=== PATIENT | male | born 1970 | race Two or more races ===

== ENCOUNTER 2024-10-17 11:03 | Inpatient (IN) | payer BC, OTHER ==
[~2024-10-17] VITALS: Ht 180.3 cm; Wt 129.8 kg
[2024-10-17] VITALS (14 sets, daily range): BP systolic 76–117; BP diastolic 46–83; PULSE 82–126; RESP 12–27; TEMP 97.4–97.7; O2SAT 90–96
[~2024-10-17 11:03] MED LIST: AMLO1TAB23 PO; CARV6.2551 PO; FLUT1AER7 IN; MYCO250C PO; SITA100T7 PO
--- NOTE | 2024-10-17 11:41 | DVH ---
CHEST RADIOGRAPH Indication: CHEST PAIN Technique: Single frontal view of the chest was obtained COMPARISON: None FINDINGS: Lines and Tubes: None Lungs: Clear Pleura: No effusion. No pneumothorax. Cardiomediastinal contours: Unremarkable Bones: Unremarkable IMPRESSION: No acute disease.
--- NOTE | 2024-10-17 11:55 | ED.PDOC ---
HPI Comments 54-year-old male patient with past medical history of COPD, CHF, diabetes mellitus, hypertension and past surgical history of colectomy for colon cancer six weeks ago presented with complaints of sudden-onset shortness of breath and chest pain. Patient's symptoms started 45 minutes ago before coming to the ED. He had sudden onset chest pain that he describes as substernal, pressure-like, not increased on inspiration, nonradiating to jaws, arms, epigastrium. He also mentioned associated shortness of breath, which started at the same time. Patient mentioned that he has been having right-sided calf pain for last seven days. He denied any use of recent blood thinners, does not use oxygen at home. Past medical history COPD, CHF, diabetes mellitus, hypertension, colon cancer past surgical history colectomy for colon cancer six weeks ago Medication history Glipizide, mycophenolate, metformin, Entresto, amlodipine, Januvia, carvedilol, montelukast Social history Allergic history Allergic to prednisone Per EMS patient was desaturating on 82-83% on initial evaluation, started the patient on oxygen. In the ED patient initial vitals: patient is tachycardic at rate of 125, respiratory rate fluctuating from 15-28, 93% on 6 L of oxygen, normal temperature and blood pressure 106/41. Review of system As advised in HPI Examination General Appearance: Alert, Oriented X3, Cooperative, No acute distress HEENT: EOMI Respiratory: Clear to auscultation, Normal air movement Cardiovascular: Regular rate, Normal S1, Normal S2 Abdominal: Normal bowel sounds, post surgical scar lola present Extremities: No leg tenderness Neuro: Normal speech and tone Attestation note: Dr. Murray: I was the supervising attending for this ED encounter. Please see the resident's notes. I was available for questions and consultations. I have personally seen and evaluated this patient. Differential diagnosis: DDx include ACS, unstable angina, anxiety, PE, pneumothroax, neoplasm, cardiac ischemia, COPD, asthma, CHF, pleural effusion, tobacco abuse, pneumonia, hypoxia, hypercapnia, anemia., infection/sepsis., pulmonary edema. Asthma, Cardiac tamponade, infection. MDM: Patient presented with the above HPI.--chest pain shortness of breath tachycardic----workup was initiated. patient was found with the above mentioned diagnosis. Patient was given: Lovenox, then heparin drip, nitroglycerin, aspirin, Zosyn, Patient ED course and VS have been stabilized. Patient has been reassessed in the ED and remained in a stable condition. Pertinent incidental findings were discussed with the patient and/or family. Patient/family voices understanding and is agreeable with plan. Patient has been observed in the ED adequate length of time to insure improvement/stability. Interventional Radiology was consulted. Patient was taken to laborer/grade check for emergent thrombectomy for massive PE. patient was admitted to the medicine team for further evaluation and treatment of their presentation. All the reports of any imaging studies that were ordered by myself were reviewed by myself. Chief Complaint: Chest Pain Time Seen by MD: 11:16 Primary Care Provider: YONATHAN Reviewed Notes: Nurses Notes, Allergies Allergies: Coded Allergies: Prednisone (Verified Allergy, Unknown, 10/18/24) Home Meds Reported Medications Amlodipine Besylate (Amlodipine Besylate) 10 Mg Tab, 1 TAB PO QAM for 90 Days, # 90 10/21/24 Fluticasone-Salmeterol (Wixela Inhub 500-50 Mcg/Dose) 1 Aer Aer, 1 PUFF IN BID for 30 Days, #60 10/21/24 Sitagliptin Phosphate (Januvia) 100 Mg Tab, 1 TAB PO DAILY for 90 Days, #90 10/21/24 Carvedilol (Carvedilol) 6.25 Mg Tab, 1 TAB PO BID for 90 Days, #180 10/21/24 Mycophenolate Mofetil (Cellcept) 250 Mg Cap, 250 MG PO BID, CAP 10/20/24 Sacubitril-Valsartan (Entresto 97-103 mg) 1 Tab Tab, 1 TAB PO BID, TAB 10/20/24 Montelukast Sodium (MONTELUKAST SODIUM) 10 Mg Tab, 1 TAB PO DAILY, #30 TAB 5 Refills 10/20/24 Metformin Hydrochloride (Metformin Hcl) 500 Mg Tab, 500 MG PO BID for 30 Days, MG 10/20/24 Glipizide (Glipizide) 10 Mg Tab, 20 MG PO BIDAC for 30 Days, MG 10/20/24 Semaglutide (Rybelsus) 7 Mg Tab, 7 MG PO DAILY, TAB 10/20/24 Discontinued Reported Medications Carvedilol (COREG) 3.125 Mg Tab, 6.25 MG PO BID, TAB 10/20/24 Information Source: Patient Mode of Arrival: EMS Physical Exam General Appearance: Other (Mentioned in the note) HEENT: Other (Mentioned in the note) Neck: Other (Mentioned in the note) Respiratory: Other (Mentioned in the note) Cardiovascular: Other (Mentioned in the note) Breast Exam: Deferred Gastrointestinal: Other (Mentioned in the note) Genitalia: Deferred Pelvic: Deferred Rectal: Deferred Extremities: Other (Mentioned in the note) Neurologic: Other (Mentioned in the note) Cerebellar Function: Other (Mentioned in the note) Reflexes: Other (Mentioned in the note) Skin: Other (Mentioned in the note) Lymphatic: Other (Mentioned in the note) EKG EKG : Comments Sinus tachycardia with T-wave inversion in V3, V4, V5 Was a procedure done? Was a procedure done?: No CP Differential Dx Differential Diagnosis: Heart Failure, SD, Pulmonary Embolus, Other Differential Diagnosis: CHF Differential Diagnosis: Angina, Aortic dissection, Chest Wall Pain, Gastritis, Myocardial Infarction, Pericarditis, Pneumonia, Pulmonary Embolus Comment DDx include ACS, unstable angina, anxiety, PE, pneumothroax, neoplasm, cardiac ischemia, COPD, asthma, CHF, pleural effusion, tobacco abuse, pneumonia, hypoxia, hypercapnia, anemia., infection/sepsis., pulmonary edema. Asthma, Cardiac tamponade, infection. X-Ray, Labs, Meds, VS Vital Signs Date Time Temp Pulse Resp B/P (MAP) Pulse Ox O2 Delivery O2 Flow Rate FiO2 10/17/24 14:04 125 10/17/24 13:01 123 24 107/73 (84) 92 10/17/24 12:04 131 10/17/24 12:00 125 10/17/24 12:00 90/63 10/17/24 11:33 98.2 129 16 104/61 (75) 87 98.2 10/17/24 11:33 126 24 92 Nasal Cannula* 6 44 10/17/24 11:06 97.7 125 26 84/58 (67) 96 10/17/24 11:03 125 Lab Test 10/17/24 14:25 10/17/24 14:03 10/17/24 12:52 10/17/24 12:40 Range/Units Prothrombin Time 12.7 H 9.3-11.8 sec Prothrombin Time INR 1.22 H 0.9-1.15 Activated Partial Thromboplast Time 33.9 24.5-34.5 SEC Lactic Acid Level 2.8 *H 3.4 *H 0.4-2.0 mmol/L Troponin I High Sensitivity 276 *H 235 *H </=54 ng/L Urine Color Yellow Yellow Urine Clarity Clear Clear Urine pH 6.0 5.0-9.0 Urine Specific [place] > 1.035 H 1.001-1.035 Urine Protein 3+ H Negative Urine Ketones Negative Negative Urine Blood 1+ H Negative /uL Urine Nitrite Negative Negative Urine Bilirubin Negative Negative Urine Urobilinogen Normal Negative mg/dL Urine Leukocyte Esterase Negative Negative /uL Urine RBC 5 0 - 3 /hpf Urine WBC 5 0 - 3 /hpf Urine Squamous Epithelial Cells Few <5 /hpf Urine Bacteria Few H None Seen /hpf Urine Hyaline Casts Few 0 - 2 /lpf Urine Mucus Few None Seen Urine Glucose Trace Normal mg/dL Test 10/17/24 11:30 Range/Units White Blood Count 25.3 H 4.4-10.8 10^3/uL Red Blood Count 5.72 4.5-5.90 10^6/uL Hemoglobin 17.6 H 13.5-17.5 g/dL Hematocrit 53.8 H 41.0-53.0 % Mean Corpuscular Volume 94.1 80.0-100.0 fL Mean Corpuscular Hemoglobin 30.8 28.0-32.0 pg Mean Corpuscular Hemoglobin Concent 32.8 32.0-36.0 g/dL Red Cell Distribution Width 14.5 H 11.8-14.3 % Platelet Count 116 L 140-450 10^3/uL Mean Platelet Volume 10.4 6.9-10.8 fL Neutrophils (%) (Auto) 37.0-80.0 % Lymphocytes (%) (Auto) 10.0-50.0 % Monocytes (%) (Auto) 0.0-12.0 % Basophils (%) (Auto) 0.0-2.0 % Neutrophils # (Auto) 1.6-8.6 10 ^3/uL Lymphocytes # (Auto) 0.4-5.4 10 ^3/uL Monocytes # (Auto) 0-1.3 10 ^3/uL Differential Total Cells Counted 100.0 100 Neutrophils % (Manual) 85 H 37.0-80.0 Band Neutrophils % (Manual) 0 Lymphocytes % (Manual) 7 L 10.0-50.0 Monocytes % (Manual) 8 0-12 Eosinophils % (Manual) 0 0-7 Basophils % (Manual) 0 0.0-2.0 Metamyelocytes % (manual) 0 Myelocytes % (Manual) 0 Promyelocytes % (Manual) 0 Blast Cells % (Manual) 0 Reactive Lymphocytes 0 Platelet Estimate Decreased Red Blood Cell Morphology Normal Prothrombin Time 12.9 H 9.3-11.8 sec Prothrombin Time INR 1.24 H 0.9-1.15 Activated Partial Thromboplast Time 32.5 24.5-34.5 SEC D-Dimer, Quantitative 23.87 H 0.0-0.49 mg/L FEU Sodium Level 143 136-145 mmol/L Potassium Level 4.4 3.5-5.1 mmol/L Chloride Level 109 H 98-107 mmol/L Carbon Dioxide Level 18 L 20-31 mmol/L Anion Gap 16 H 5-15 Blood Urea Nitrogen 29 H 9-23 mg/dL Creatinine 1.48 H 0.700-1.30 mg/dL Glomerular Filtration Rate Calc 55 >90 mL/min BUN/Creatinine Ratio 19.6 10.0-20.0 Serum Glucose 191 H 74-106 mg/dL Calcium Level 10.0 8.7-10.4 mg/dL Magnesium Level 2.1 1.6-2.6 mg/dL Total Bilirubin 1.3 H 0.2-1.0 mg/dL Aspartate Amino Transferase (AST) 35 13-40 U/L Alanine Aminotransferase (ALT) 31 7-40 U/L Alkaline Phosphatase 76 46-116 U/L Troponin I High Sensitivity 199 *H </=54 ng/L C-Reactive Protein High Sensitivity 1.22 H <1.0 mg/dL B-Type Natriuretic Peptide 208.89 0-100 pg/mL Total Protein 7.3 5.7-8.2 g/dL Albumin 4.6 3.2-4.8 g/dL Thyroid Stimulating Hormone (TSH) 2.39 0.55-4.78 uIU/mL Microbiology Date/Time Source Procedure Growth Status 10/17/24 12:52 Blood Blood Culture - Preliminary NO GROWTH AFTER 72 HOURS OF INCUBATION. Resulted 10/17/24 12:52 Blood Blood Culture - Preliminary NO GROWTH AFTER 72 HOURS OF INCUBATION. Resulted [place] [id number] Ph: [phone] DIAGNOSTIC IMAGING Diagnostic Imaging Report : [id number] Signed PATIENT: JOHNNY JOINER ACCT: [id number] UNIT: [id number] : 1970 LOC: ER ROOM / BED: / AGE / SEX: 54 / M ADM STATUS: REG ER SERVICE 1115 ORDERING PHYSICIAN: SPRING HARTMAN MD PROCEDURE(s): CXRP - CHEST PORTABLE REASON: CHEST PAIN ORDER NUMBER(s): [id number], ACCESSION NUMBER(s): [id number] CHEST RADIOGRAPH Indication: CHEST PAIN Technique: Single frontal view of the chest was obtained COMPARISON: None FINDINGS: Lines and Tubes: None Lungs: Clear Pleura: No effusion. No pneumothorax. Cardiomediastinal contours: Unremarkable Bones: Unremarkable IMPRESSION: No acute disease. ATED BY: DEWAYNE JULIAN MD DICTATED DATE/TIME: 10/17/24 1139 SIGNED BY: DEWAYNE JULIAN MD SIGNED DATE/TIME: 10/17/24 1139 CC: [place] [id number] Ph: [phone] DIAGNOSTIC IMAGING Diagnostic Imaging Report : [id number] Signed PATIENT: JOHNNY JOINER ACCT: [id number] UNIT: [id number] : 1970 LOC: ER ROOM / BED: / AGE / SEX: 54 / M ADM STATUS: REG ER SERVICE 1145 ORDERING PHYSICIAN: ALYSON MURRAY DO PROCEDURE(s): BLDVT - BiLat Lower DVT REASON: SOB ORDER NUMBER(s): [id number], ACCESSION NUMBER(s): [id number] Bilateral lower extremity venous duplex Clinical History: SOB Comparison: None Technique: Duplex Doppler evaluation of the deep venous systems of both lower extremities from the common femoral veins to the popliteal veins including color Doppler and spectral/pulsed waveform analysis was performed. Findings: RIGHT SIDE: The common femoral vein demonstrates appropriate compressibility and waveform variability. There is compressibility/patency of the great saphenous vein at the proximal thigh. Thrombus in the mid right superficial femoral vein. There is normal compressibility at the tibioperoneal trunk. LEFT SIDE: The common femoral vein demonstrates appropriate compressibility and waveform variability. There is compressibility/patency of the great saphenous vein at the proximal thigh. The femoral vein demonstrates appropriate compressibility and waveform variability. The deep femoral vein demonstrates appropriate compressibility and waveform variability. The popliteal vein demonstrates appropriate compressibility and waveform variability. There is normal compressibility at the tibioperoneal trunk. Impression: Right Lower extremity DVT. No left DVT. ATED BY: CHRISTIE ZARCO MD DICTATED DATE/TIME: 10/17/248 SIGNED BY: CHRISTIE ZARCO MD SIGNED DATE/TIME: 10/17/248 CC: [place] [id number] Ph: [phone] DIAGNOSTIC IMAGING Diagnostic Imaging Report : [id number] Signed PATIENT: JOHNNY JOINER CACCT: [id number] UNIT: [id number] : 1970 LOC: ER ROOM / BED: / AGE / SEX: 54 / M ADM STATUS: REG ER SERVICE 1213 ORDERING PHYSICIAN: MORIAH HINDS RESIDENT PROCEDURE(s): CTACH - CT ANGIO CHEST CONTRAST REASON: rule out PE ORDER NUMBER(s): [id number], ACCESSION NUMBER(s): [id number] CT CT ANGIO CHEST CONTRAST INDICATION: rule out PE EXAM DATE: 10/17/2024 01:16 PM COMPARISON: None RADIATION DOSE: CTDIvol: 27 mGy, DLP: 1127 mGy*cm PROCEDURE: Helical CT angiographic images were obtained of the chest with intravenous contrast. Sagittal and coronal reconstructions as well as MIPS are provided. Maximum intensity projections performed (MIPs) were performed for CTA. ADDITIONAL IMAGES / REFORMATS: None All CT scans at this medical facility are performed using dose modulation techniques as appropriate to a performed exam including the following: Automated exposure control was utilized; adjustment of the MA and/or KV according to patient size; and use of iterative reconstruction technique. FINDINGS: Bones: Scattered degenerative changes are noted in the visualized osseous stru ctures. Visualized Abdomen: 5.3 cm right adrenal myelolipoma. Multiple hepatic cystic lesions measures up to 2.2 cm. Nodular liver contour. Chest Wall: 2.7 x 2.7 x 3.5 cm cystic lesion in the posterior chest wall subcutaneous fat. Soft tissues: Normal. Mediastinum: Normal. Heart: Right ventricular enlargement is seen. Vessels: Large filling defects in the visualized pulmonary arteries including the segmental and subsegmental pulmonary arteries. Lymph Nodes: Normal. Pleura: Normal. Airways: Normal. Lung: Normal. Other: IMPRESSION: Saddle pulmonary embolism in the visualized bilateral pulmonary arteries including the segmental and subsegmental pulmonary arteries. 2.7 x 2.7 x 3.5 cm cystic lesion in the posterior chest wall subcutaneous fat, u ncertain etiology but metastatic disease is a consideration. 5.3 cm right adrenal myelolipoma. Multiple hepatic cystic lesions measures up to 2.2 cm are incompletely evaluated. Nodular liver contour could be cirrhosis. Critical Result: Pulmonary Emboli Findings discussed with Dr. Murray at 10/17/2024 02:32 PM and acknowledged receipt and understanding of the findings. ATED BY: GONZALEZ SHERWOOD MD DICTATED DATE/TIME: 10/17/241432 SIGNED BY: GONZALEZ SHERWOOD MD SIGNED DATE/TIME: 10/17/24 143 CC: X-Ray, Labs, Meds, VS Comment [place] [address] Ph: [phone] DIAGNOSTIC IMAGING Diagnostic Imaging Report : [id number] Signed PATIENT: JOHNNY JOINER ACCT: [id number] UNIT: [id number] : 1970 LOC: ER ROOM / BED: / AGE / SEX: 54 / M ADM STATUS: REG ER SERVICE 1145 ORDERING PHYSICIAN: ALYSON MURRAY DO PROCEDURE(s): BLDVT - BiLat Lower DVT REASON: SOB ORDER NUMBER(s): [id number], ACCESSION NUMBER(s): [id number] Bilateral lower extremity venous duplex Clinical History: SOB Comparison: None Technique: Duplex Doppler evaluation of the deep venous systems of both lower extremities from the common femoral veins to the popliteal veins including color Doppler and spectral/pulsed waveform analysis was performed. Findings: RIGHT SIDE: The common femoral vein demonstrates appropriate compressibility and waveform variability. There is compressibility/patency of the great saphenous vein at the proximal thigh. Thrombus in the mid right superficial femoral vein. There is normal compressibility at the tibioperoneal trunk. LEFT SIDE: The common femoral vein demonstrates appropriate compressibility and waveform variability. There is compressibility/patency of the great saphenous vein at the proximal thigh. The femoral vein demonstrates appropriate compressibility and waveform variab ility. The deep femoral vein demonstrates appropriate compressibility and waveform variability. The popliteal vein demonstrates appropriate compressibility and waveform variability. There is normal compressibility at the tibioperoneal trunk. Impression: Right Lower extremity DVT. No left DVT. ATED BY: CHRISTIE ZARCO MD DICTATED DATE/TIME: 10/17/24 1238 SIGNED BY: CHRISTIE ZARCO MD SIGNED DATE/TIME: 10/17/24 1238 CC: [place] [id number] Ph: [phone] DIAGNOSTIC IMAGING Diagnostic Imaging Report : [id number] Signed PATIENT: JOHNNY JOINER ACCT: [id number] UNIT: [id number] : 1970 LOC: ER ROOM / BED: / AGE / SEX: 54 / M ADM STATUS: REG ER SERVICE 1213 ORDERING PHYSICIAN: MORIAH HINDS RESIDENT PROCEDURE(s): CTACH - CT ANGIO CHEST CONTRAST REASON: rule out PE ORDER NUMBER(s): [id number], ACCESSION NUMBER(s): [id number] CT CT ANGIO CHEST CONTRAST INDICATION: rule out PE EXAM DATE: 10/17/2024 01:16 PM COMPARISON: None RADIATION DOSE: CTDIvol: 27 mGy, DLP: 1127 mGy*cm PROCEDURE: Helical CT angiographic images were obtained of the chest with intravenous contrast. Sagittal and coronal reconstructions as well as MIPS are provided. Maximum intensity projections performed (MIPs) were performed for CTA. ADDITIONAL IMAGES / REFORMATS: None All CT scans at this medical facility are performed using dose modulation techniques as appropriate to a performed exam including the following: Automated exposure control was utilized; adjustment of the MA and/or KV according to patient size; and use of iterative reconstruction technique. FINDINGS: Bones: Scattered degenerative changes are noted in the visualized osseous structures. Visualized Abdomen: 5.3 cm right adrenal myelolipoma. Multiple hepatic cystic lesions measures up to 2.2 cm. Nodular liver contour. Chest Wall: 2.7 x 2.7 x 3.5 cm cystic lesion in the posterior chest wall subcutaneous fat. Soft tissues: Normal. Mediastinum: Normal. Heart: Right ventricular enlargement is seen. Vessels: Large filling defects in the visualized pulmonary arteries including the segmental and subsegmental pulmonary arteries. Lymph Nodes: Normal. Pleura: Normal. Airways: Normal. Lung: Normal. Other: IMPRESSION: Saddle pulmonary embolism in the visualized bilateral pulmonary arteries including the segmental and subsegmental pulmonary arteries. 2.7 x 2.7 x 3.5 cm cystic lesion in the posterior chest wall subcutaneous fat, uncertain etiology but metastatic disease is a consideration. 5.3 cm right adrenal myelolipoma. Multiple hepatic cystic lesions measures up to 2.2 cm are incompletely evaluated. Nodular liver contour could be cirrhosis. Critical Result: Pulmonary Emboli Findings discussed with Dr. Murray at 10/17/2024 02:32 PM and acknowledged receipt and understanding of the findings. ATED BY: GONZALEZ SHERWOOD MD DICTATED DATE/TIME: 10/17/24 143 SIGNED BY: GONZALEZ SHERWOOD MD SIGNED DATE/TIME: 10/17/24 143 CC: Images Reviewed?: Images reviewed and evaluated by wi Time of 1ST Reevaluation: 12:02 Reevaluation 1ST: Unchanged Time of 2ND Reevaluation: 14:07 (Case discussed with radiologist Dr. Sherwood, radiologist will take the patient laborer/grade check for mechanical thrombectomy. Case also discussed with admitting physician Dr. Kulkarni, he mentioned that he is going to admit the patient after the procedure.Patient was discussed about the procedure, which she agreed.) Patient Education/Counseling: Diagnosis, Treatment Family Education/Counseling: No Family Present Comments Patient presented with the chest pain, shortness of breath, right leg pain.workup was initiated. In the ED patient initial vitals: patient is tachycardic at rate of 125, respiratory rate fluctuating from 15-28, 93% on 6 L of oxygen, normal temperature and blood pressure 106/41. Lower extremity Doppler reveals DVT. Patient was given therapeutic Lovenox once. CT angio showed pulmonary embolism. Case discussed with radiologist Dr. Sherwood, radiologist will take the patient laborer/grade check for mechanical thrombectomy. Case also discussed with admitting physician Dr. Kulkarni, he mentioned that he is g oing to admit the patient after the procedure. Patient was discussed about the procedure, which she agreed. Patient has been observed in the ED adequate length of time to insure improvement/stability. patient was admitted to the medicine team for further evaluation and treatment of their presentation. Departure 1 Departure Time of Disposition: 12:02 Impression: Primary Impression: Chest pain Additional Impressions: Shortness of breath Leg pain, right Pulmonary embolism DVT (deep vein thrombosis) in Disposition: ADMITTED INPATIENT Admit to: Tele Condition: Guarded Discharged With: Self Critical Care Note Critical Care Time?: Yes (35 min-critical care time only) Stability Stability form required: No Heart Score Heart Score: Heart Score Response (Comments) Value History Highly Suspicious 2 EKG Repolarization Disturb 1 Age 45-64 1 Risk Factors >3 or Hx ASHD 2 Troponin >3 x's Normal limit 2 Total 8 MORIAH HINDS RESIDENT Oct 17, 2024 11:55 ALYSON MURRAY DO Oct 21, 2024 22:25
[2024-10-17 11:57] LABS: Hemoglobin 17.6 g/dL (13.5-17.5)
[2024-10-17 11:59] LABS: Hematocrit 53.8 % (41.0-53.0); Mean Corpuscular Hemoglobin 30.8 pg (28.0-32.0); Mean Corpuscular Hgb Conc. 32.8 g/dL (32.0-36.0); Mean Corpuscular Volume 94.1 fL (80.0-100.0); Platelet Count (auto) 116 10^3/uL (140-450); Red Blood Cells 5.72 10^6/uL (4.5-5.90); Red Cell Distribution Width 14.5 % (11.8-14.3); White Blood Cell 25.3 10^3/uL (4.4-10.8)
[2024-10-17] MEDS: NITROGLYCERIN 0.4 MG SL TAB SL ONE (12:00)
[2024-10-17] MEDS: ASPirin 325 MG TAB PO ONE (12:00)
[2024-10-17 12:04] LABS: Band Neutrophils % (manual) 0; Basophils % (manual) 0 (0.0-2.0); Blast Cells 0; Eosinophils % (manual) 0 (0-7); Metamyelocytes % 0; Myelocytes % 0; Promyelocytes % 0; Reactive Lymphocytes 0
[2024-10-17 12:28] LABS: INR 1.24 (0.9-1.15); Partial Thromboplastin Time 32.5 SEC (24.5-34.5); Prothrombin Time 12.9 sec (9.3-11.8)
--- NOTE | 2024-10-17 12:41 | DVH ---
Bilateral lower extremity venous duplex Clinical History: SOB Comparison: None Technique: Duplex Doppler evaluation of the deep venous systems of both lower extremities from the common femora l veins to the popliteal veins including color Doppler and spectral/pulsed waveform analysis was perf ormed. Findings: RIGHT SIDE: The common femoral vein demonstrates appropriate compressibility and waveform variability. There is compressibility/patency of the great saphenous vein at the proximal thigh. Thrombus in the mid right superficial femoral vein. There is normal compressibility at the tibioperoneal trunk. LEFT SIDE: The common femoral vein demonstrates appropriate compressibility and waveform variability. There is compressibility/patency of the great saphenous vein at the proximal thigh. The femoral vein demonstrates appropriate compressibility and waveform variability. The deep femoral vein demonstrates appropriate compressibility and waveform variability. The popliteal vein demonstrates appropriate compressibility and waveform variability. There is normal compressibility at the tibioperoneal trunk. Impression: Right Lower extremity DVT. No left DVT.
[2024-10-17 12:48] LABS: Alanine Aminotransferase 31 U/L (7-40); Alkaline Phosphatase 76 U/L (46-116); Anion Gap 16 (5-15); BUN/Creatinine Ratio 19.6 (10.0-20.0); Blood Urea Nitrogen 29 mg/dL (9-23); Carbon Dioxide 18 mmol/L (20-31); Chloride 109 mmol/L (98-107); Glucose 191 mg/dL (74-106); Magnesium 2.1 mg/dL (1.6-2.6); Potassium 4.4 mmol/L (3.5-5.1); Sodium 143 mmol/L (136-145)
[2024-10-17 12:49] LABS: Albumin 4.6 g/dL (3.2-4.8); Aspartate Aminotransferase 35 U/L (13-40)
[2024-10-17 12:50] LABS: Bilirubin, Total 1.3 mg/dL (0.2-1.0); Total Protein 7.3 g/dL (5.7-8.2)
[2024-10-17 12:52] LABS: Lymphocytes % (manual) 7 (10.0-50.0)
[2024-10-17 12:53] LABS: Monocytes % (manual) 8 (0-12); Platelet Estimate Decreased; RBC Morphology Normal
[2024-10-17 13:09] LABS: CRP High Sensitivity 1.22 mg/dL (<1.0)
[2024-10-17] MEDS: ENOXAPARIN SOD 120 MG/0.8 ML SYRINGE SC ONE (13:12)
[2024-10-17] MEDS: IOHEXOL 350 MG/ML 100ML IJ ONE (13:15)
[2024-10-17] MEDS: PIPERACILLIN-TAZOB 3.375GM 100 ML IV ONE (13:35)
[2024-10-17 13:43] LABS: Lactic Acid w/Reflex 3.4 mmol/L (0.4-2.0)
[2024-10-17] MEDS: IODIXANOL 320MG/ML 100ML BTL IV ONE (14:24)
[2024-10-17] MEDS: fentaNYL CITRATE 100 MCG/2 ML VL ONE (14:32)
[2024-10-17] MEDS: LIDOCAINE 2%HCL (LOCAL ANESTH.) INJ 20ML MDV ONE (14:33)
[2024-10-17] MEDS: MIDAZOLAM HCL 2MG/2ML 2ml VIAL (1mg/ml) ONE (14:33)
--- NOTE | 2024-10-17 14:35 | DVH ---
CT CT ANGIO CHEST CONTRAST INDICATION: rule out PE EXAM DATE: 10/17/2024 01:16 PM COMPARISON: None RADIATION DOSE: CTDIvol: 27 mGy, DLP: 1127 mGy*cm PROCEDURE: Helical CT angiographic images were obtained of the chest with intravenous contrast. Sagi ttal and coronal reconstructions as well as MIPS are provided. Maximum intensity projections performe d (MIPs) were performed for CTA. ADDITIONAL IMAGES / REFORMATS: None All CT scans at this medical facility are performed using dose modulation techniques as appropriate t o a performed exam including the following: Automated exposure control was utilized; adjustment of th e MA and/or KV according to patient size; and use of iterative reconstruction technique. FINDINGS: Bones: Scattered degenerative changes are noted in the visualized osseous structures. Visualized Abdomen: 5.3 cm right adrenal myelolipoma. Multiple hepatic cystic lesions measures up to 2.2 cm. Nodular liver contour. Chest Wall: 2.7 x 2.7 x 3.5 cm cystic lesion in the posterior chest wall subcutaneous fat. Soft tissues: Normal. Mediastinum: Normal. Heart: Right ventricular enlargement is seen. Vessels: Large filling defects in the visualized pulmonary arteries including the segmental and subse gmental pulmonary arteries. Lymph Nodes: Normal. Pleura: Normal. Airways: Normal. Lung: Normal. Other: IMPRESSION: Saddle pulmonary embolism in the visualized bilateral pulmonary arteries including the segmental and subsegmental pulmonary arteries. 2.7 x 2.7 x 3.5 cm cystic lesion in the posterior chest wall subcutaneous fat, uncertain etiology but metastatic disease is a consideration. 5.3 cm right adrenal myelolipoma. Multiple hepatic cystic lesions measures up to 2.2 cm are incompletely evaluated. Nodular liver contour could be cirrhosis. Critical Result: Pulmonary Emboli Findings discussed with Dr. Perez at 10/17/2024 02:32 PM and acknowledged receipt and understanding o f the findings.
[2024-10-17 14:58] LABS: INR 1.22 (0.9-1.15); Partial Thromboplastin Time 33.9 SEC (24.5-34.5); Prothrombin Time 12.7 sec (9.3-11.8)
[2024-10-17] MEDS: HEPARIN DRIP/D5W 100UNITS/ML 250 ML IV ONE (15:02)
[2024-10-17] MEDS: HEPARIN SODIUM (PORCINE) 5000 UNITS/ML 1ML VIAL ONE (15:28)
[2024-10-17] MEDS: HEPARIN 1,000 UNITS/ml 1ML VIAL ONE (16:00)
[2024-10-17 16:58] LABS: Urine Bacteria FEW /hpf (None Seen); Urine Blood 1+ /uL (Negative); Urine Clarity Clear (Clear); Urine Color Yellow (Yellow); Urine Hyaline Cast FEW /lpf (0 - 2); Urine Mucus FEW (None Seen); Urine Protein, UAD 3+ (Negative); Urine Urobilinogen Normal (Negative); Urine WBC 5 /hpf (0 - 3)
[2024-10-17 17:02] LABS: Urine Specific Gravity > 1.035 (1.001-1.035)
--- NOTE | 2024-10-17 18:17 | DVHSR ---
APPROVED REPORT EXAM: Two-dimensional and M-mode echocardiogram with Doppler and color Doppler. INDICATION pulm Embolism RISK FACTORS Height: 70, Weight: 270 DIMENSIONS LVDd4.5 (3.8-5.7cm)LA (2D) (1.9-4.0cm)Aortic Root4.4 (2.0-3.7cm) LVDs3.4 (2.5-4.0cm)LA (MM) (1.9-4.0cm)Aortic Cusp Exc2.2 (1.5-2.0cm) EF (%) 40 (55-70%)Rt. Atrium (1.9-4.0cm)Asc. Aorta3.6 cm Mitral Valve MitralMitral Stenosis E wave0.56m/sMV Mean GR.mmHg E/A ratio0.02D MVAcm2 Aortic Valve Aortic ValveAortic Stenosis V10.62m/Matthew Mean GR.1mmHg V20.79m/Matthew Peak GR.2mmHg Tricuspid Valve TR Velocity3.43m/s [id number] Other Information Technically limited study due to patient position and body habitus. Conclusion Mildly concentric left ventricular hypertrophy. There is moderately reduced right ventricular systol ic function 40%. There is severe right ventricular dilatation. There is severe right ventricular systolic dysfunction . Multiple globular mobile echodense masses were seen in right atrium largest one is measuring 2.2 by 1.5 cm this is a likely represent a clot in transit with a high-risk of pulmonary embolism. There is severe tricuspid valve regurgitation. There is moderate pulmonary hypertension estimated r ight ventricular systolic pressure 57 mm of mercury. Mitral valve appears normal structure function. Normal mitral valve regurgitation. No pericardial effusion. Normal IVC is dilated secondary severe tricuspid regurgitation and pulmonar y hypertension.
[2024-10-17] MEDS ORDERED: ACETAMINOPHEN 325 MG TAB PO PRN (20:00)
[2024-10-17] MEDS ORDERED: HYDROcodone-ACET 5/325MG TAB PO PRN (20:00)
[2024-10-17] MEDS ORDERED: DEXTROSE (50%) 50ML SYRG IV PRN (20:00)
[2024-10-17] MEDS ORDERED: ONDANSETRON HCL 4 MG/2 ML VIAL IV PRN (20:00)
--- NOTE | 2024-10-17 20:08 | DVH ---
XY PERC.ARTERIAL THROMBECTOMY, HISTORY: SADDLE PE THROMBECTOMY PROCEDURE: Informed consent was obtained previously in clinic. The patient was placed supine on the i nterventional table. The right groin was prepped with chlorhexidine which was allowed to dry and drap ed in sterile fashion. Time out was performed. IV sedation and 1% local lidocaine were administered. With real-time US, a micropuncture kit was entered into the right common femoral vein, an image docum enting patency was sent to PACS, and a 6 Occitan vascular sheath was placed. Venogram confirms locatio n of the sheath. Over a guide wire, a pigtail catheter was placed in the main pulmonary artery. PA p ressure and pulmonary arteriogram were obtained. 5000 total units of heparin were administered IV. A glidewire advantage was then used though the pigtail catheter and placed into the right pulmonary art emily. The pigtail was removed over the wire and a 5 Fr angled glidecath was placed into the right pulm onary artery. An amplatz wire was placed into the right pulmonary artery and the glide catheter was r emoved. The groin sheath was removed and the venotomy was serially dilated. A 26 Fr Inari sheath was advanced over the wire into the IVC. Then, the 24 Fr Inari FlowTriever device was navigated into the right pulmonary artery. A manual aspiration was performed x2. Blood was returned to the patient. Duri ng manual aspiration, due to the forces, the wire was retracted. The FlowTriever device was then niall daina from the body. Flushes through the FlowTriever device revealed a large thrombus and a digital armando ge was obtained. The heart rate decreased from 120s to 100s, oxigenation increased, and blood pressur e increased from 80-90s to 100-110s systolic. Additional attempts to place the angled pigtail cathete r into the pulmonary artery was unsuccessful. Completion images or pressures were therefore unable to be obtained. The groin sheath was removed and a flow stasis device was placed. Hemostasis was obtain ed with manual compression. FLUOROSCOPY TIME: 17.5 minutes. DAP 9653 CONTRAST USED:55 mL. SEDATION: Dr. Ellyn Sherwood was personally responsible for the administration of moderate sedation during the procedure performed, including the use of an independent trained observer who had no other duties during the procedure. The drugs utilized were IV fentanyl and versed (see nursing log for details). The total time of supervision by the attending physician was approximately 120 minutes. FINDINGS: Initial pulmonary angiogram reveals large bilateral pulmonary embolus in the right and left pulmonary arteries. Initial pulmonary artery pressure: 66/31 (44) mm Hg IMPRESSION: Large bilateral pulmonary embolus status post mechanical thrombectomy of the right and possibly saddl e pulmonary embolus. The left pulmonary embolus was unable to be removed. Elevated pulmonary arterial pressure measurement. PLAN: Continue heparin gtt. Neurovascular checks q1hrs. ICU admission. Right leg straight for 2 hours. Ok to resume a diet. Continue supplemental oxygen. Follow up CTPA in next few days.
[2024-10-17] MEDS ORDERED: SENNA 8.6 MG TAB PO PRN (20:15)
--- NOTE | 2024-10-17 20:26 | DVHINCON2 ---
Date of service: Oct 17, 2024 Referring Physician Ivanna Redd NP Reason for Consultation Saddle pulmonary embolism, AHRF, COPD. History of Present Illness A 54-year-old man with past medical history of COPD, CHF, diabetes mellitus, hypertension, and colon CA s/p hemicolectomy who presents with c/o sudden-onset shortness of breath and chest pain. Symptoms started 45 minutes prior to presentation to ED. Chest pain is described as substernal, pressure-like, nonradiating. Patient also notes right calf pain ongoing x1 week. EKG shows tachycardia with T-wave inversion in V3, V4, V5. WBC 25.3, BUN 29, Health Social Work Professor 1.48, CRP 1.22. Troponin 199 > 235 > 276. LA 3.4 with repeat of 2.8. Chest x-ray showed NAD. Bilateral lower extremity venous duplex showed RLE DVT. CTA chest revealed saddle pulmonary embolism in the visualized bilateral pulmonary arteries including the segmental and subsegmental pulmonary arteries. 2.7 x 2.7 x 3.5 cm cystic lesion in the posterior chest wall subcutaneous fat, possible metastatic disease. 5.3 cm right adrenal myelolipoma. Multiple hepatic cystic lesions measure up to 2.2 cm. Nodular liver contour could be cirrhosis. Patient was admitted for further care and pulmonary consultation requested for evaluation and management due to the above findings. Review of Systems: 14-point review of systems negative unless otherwise noted above. Past Medical History: COPD, CHF, diabetes mellitus, hypertension, and colon CA s/p hemicolectomy. Past Surgical History: Hemicolectomy. Medications: Reviewed. Allergies: No known drug allergies. Family History: Congestive heart failure. Social History: Nonsmoker. No alcohol or illicit drug use. Family History: FH: CHF (congestive heart failure) Allergies: Coded Allergies: Prednisone (Verified Allergy, Unknown, 10/18/24) Current Medications Current Medications Medications (Trade) Dose Ordered Sig/Rafael Route PRN Reason Start Time Stop Time Status Last Admin Heparin Sodium/ Dextrose 250 ml @ 20 mls/hr [id number] IV 10/17/24 23:00 Nitroglycerin (Ntrostat Sublingual) 0.4 mg Q5MINP PRN SL FOR CHEST PAIN 10/17/24 17:00 Morphine Sulfate 2 mg Q30M PRN IV FOR CHEST PAIN 10/17/24 17:00 Ondansetron HCl (Zofran) 4 mg Q6HPRN PRN IV NAUSEA / VOMITING 10/17/24 20:00 Acetaminophen (Tylenol Tablet) 650 mg Q6HPRN PRN PO TEMP GREATER THAN 100.4 10/17/24 20:00 Acetaminophen/ Hydrocodone Bitart (Branscomb 5/325MG Tab) 1 tab Q6HPRN PRN PO PAIN SCALE 1 THRU 6 10/17/24 20:00 Diagnostic Test (Pha) (Accu-Chek Comfort Curve T) 1 strip ACHS 10/17/24 22:00 Insulin Human Regular (InsuLIN R) ACHS SC 10/17/24 22:00 Dextrose 50 ml UD PRN IV Blood Sugar LESS THAN 60 10/17/24 20:00 Sennosides (Senokot Tablet) 8.6 mg QHSP PRN PO FOR CONSTIPATION 10/17/24 20:15 Vital Signs Vital Signs Date Time Temp Pulse Resp B/P (MAP) Pulse Ox O2 Delivery O2 Flow Rate FiO2 10/17/24 19:05 97.7 96 12 105/76 (86) 94 97.7 10/17/24 19:05 Nasal Cannula* 6 44 Physical Exam Gen.: Patient lying in bed in no apparent distress. On supplemental oxygen. Head: Normocephalic, atraumatic. Eyes: EOMI/PERRLA. Ears: Normal hearing. Normal anatomy. Neck/trachea: Trachea midline, supple. Nose: Normal external anatomy. Mouth: Moist mucous membranes. Chest: Decreased air entry bilaterally. No wheezing or rhonchi. Cardiovascular: Positive S1, positive S2. Regular rate and rhythm. Abdomen: Positive bowel sounds in all 4 quadrants. Soft, non-tender, non- distended. : Deferred. Rectal: Deferred. Skin: Warm, dry. Intact. Extremities: 2+ radial pulses bilaterally. No lower extremity edema. Neuro: Awake, alert, oriented x3. No gross motor or sensory deficits. Cranial n erves II through XII intact. Gait not assessed. Labs/Diagnostic Data Labs Test 10/17/24 14:25 10/17/24 14:03 10/17/24 11:30 Range/Units Prothrombin Time 12.7 H 9.3-11.8 sec Prothrombin Time INR 1.22 H 0.9-1.15 Activated Partial Thromboplast Time 33.9 24.5-34.5 SEC Lactic Acid Level 2.8 *H 0.4-2.0 mmol/L Troponin I High Sensitivity 276 *H </=54 ng/L Urine Color Yellow Yellow Urine Clarity Clear Clear Urine pH 6.0 5.0-9.0 Urine Specific [place] > 1.035 H 1.001-1.035 Urine Protein 3+ H Negative Urine Ketones Negative Negative Urine Blood 1+ H Negative /uL Urine Nitrite Negative Negative Urine Bilirubin Negative Negative Urine Urobilinogen Normal Negative mg/dL Urine Leukocyte Esterase Negative Negative /uL Urine RBC 5 0 - 3 /hpf Urine WBC 5 0 - 3 /hpf Urine Squamous Epithelial Cells Few <5 /hpf Urine Bacteria Few H None Seen /hpf Urine Hyaline Casts Few 0 - 2 /lpf Urine Mucus Few None Seen Urine Glucose Trace Normal mg/dL White Blood Count 25.3 H 4.4-10.8 10^3/uL Red Blood Count 5.72 4.5-5.90 10^6/uL Hemoglobin 17.6 H 13.5-17.5 g/dL Hematocrit 53.8 H 41.0-53.0 % Mean Corpuscular Volume 94.1 80.0-100.0 fL Mean Corpuscular Hemoglobin 30.8 28.0-32.0 pg Mean Corpuscular Hemoglobin Concent 32.8 32.0-36.0 g/dL Red Cell Distribution Width 14.5 H 11.8-14.3 % Platelet Count 116 L 140-450 10^3/uL Mean Platelet Volume 10.4 6.9-10.8 fL Neutrophils (%) (Auto) 37.0-80.0 % Lymphocytes (%) (Auto) 10.0-50.0 % Monocytes (%) (Auto) 0.0-12.0 % Basophils (%) (Auto) 0.0-2.0 % Neutrophils # (Auto) 1.6-8.6 10 ^3/uL Lymphocytes # (Auto) 0.4-5.4 10 ^3/uL Monocytes # (Auto) 0-1.3 10 ^3/uL Differential Total Cells Counted 100.0 100 Neutrophils % (Manual) 85 H 37.0-80.0 Band Neutrophils % (Manual) 0 Lymphocytes % (Manual) 7 L 10.0-50.0 Monocytes % (Manual) 8 0-12 Eosinophils % (Manual) 0 0-7 Basophils % (Manual) 0 0.0-2.0 Metamyelocytes % (manual) 0 Myelocytes % (Manual) 0 Promyelocytes % (Manual) 0 Blast Cells % (Manual) 0 Reactive Lymphocytes 0 Platelet Estimate Decreased Red Blood Cell Morphology Normal D-Dimer, Quantitative 23.87 H 0.0-0.49 mg/L FEU Sodium Level 143 136-145 mmol/L Potassium Level 4.4 3.5-5.1 mmol/L Chloride Level 109 H 98-107 mmol/L Carbon Dioxide Level 18 L 20-31 mmol/L Anion Gap 16 H 5-15 Blood Urea Nitrogen 29 H 9-23 mg/dL Creatinine 1.48 H 0.700-1.30 mg/dL Glomerular Filtration Rate Calc 55 >90 mL/min BUN/Creatinine Ratio 19.6 10.0-20.0 Serum Glucose 191 H 74-106 mg/dL Calcium Level 10.0 8.7-10.4 mg/dL Magnesium Level 2.1 1.6-2.6 mg/dL Total Bilirubin 1.3 H 0.2-1.0 mg/dL Aspartate Amino Transferase (AST) 35 13-40 U/L Alanine Aminotransferase (ALT) 31 7-40 U/L Alkaline Phosphatase 76 46-116 U/L C-Reactive Protein High Sensitivity 1.22 H <1.0 mg/dL B-Type Natriuretic Peptide 208.89 0-100 pg/mL Total Protein 7.3 5.7-8.2 g/dL Albumin 4.6 3.2-4.8 g/dL Thyroid Stimulating Hormone (TSH) 2.39 0.55-4.78 uIU/mL Assessment Impression: Acute hypoxic respiratory failure Saddle pulmonary embolism DM type II Chronic obstructive pulmonary disease Congestive heart failure Colon cancer S/p hemicolectomy Morbid obesity, BMI 41.4 s/p Thrombectomy Plan: Supplemental oxygen 6 LPM NC Titrate to keep O2 sats above 92%. Taper O2 as tolerated. Bronchodilators PRN. Antibiotics - Zosyn x1 Heparin drip. S/p thrombectomy by IR. PRN morphine for pain control Avoid oversedation Monitor renal function. Monitor electrolytes. Supplement as necessary. Monitor ins and outs. Diet and lifestyle modifications for weight reduction Morbid obesity - complicates all care DVT prophylaxis. Prognosis: Poor given patient's multiple co-morbidities. Rest of plan per hospitalist and other consultants. Thank you Ivanna Redd NP, for allowing me to participate in this patient's care. Further recommendations will depend on the patient's clinical course. Please do not hesitate to contact me if you have any questions or concerns. This medical document was created using an electronic medical record system with [employer] dictation system. Although these documentations are being carefully reviewed, there may still be some phonetic and typographical changes. The errors are purely typographical, due to imperfection on the software program, and do not reflect any compromise in the patient's medical care. Plan discussed with: Patient, Other (RN, PULP AND PAPER TESTER MD Tramaine) CARON LACY MD Oct 17, 2024 20:26
[2024-10-17] MEDS: ACCU-CHEK COMFORT CURVE STRIP VI SCH (22:00)
[2024-10-17] MEDS: InsuLIN REG 1unit/0.01ml Soln (100units/ml) SC SCH (22:00)
[2024-10-17] MEDS: NITROGLYCERIN 0.4 MG SL TAB SL PRN (22:26)
[2024-10-17] MEDS: MORPHINE SULFATE INJ 2 MG/ml SYRG IV PRN (22:36)
[2024-10-17] MEDS: HEPARIN DRIP/D5W 100UNITS/ML 250 ML IV SCH (22:44)
[2024-10-17 22:45] LABS: INR 1.13 (0.9-1.15); Prothrombin Time 11.9 sec (9.3-11.8)
--- NOTE | 2024-10-17 23:06 | DVHHP2 ---
Admitting Diagnosis: Pulmonary embolism History of Present Illness HPI Mr. Zoe Collado is a 54 yo male with a history of COPD, CHF, DM, hypertension, colectomy , colon CA who presents with shortness of breath. Patient was found to have a Saddle Pulmonary embolism , patient was taken to medical lab assistant by IR for thrombectomy. Patient in ICU status post thrombectomy. Patient reports chest pain, tachypnea. Patient was seen by cardiology in ICU. Past Medical History Cardiac: CHF, HTN Pulmonary: COPD Central Nervous System: No pertinent Hx GI: No pertinent Hx Hemotology/Oncology: No pertinent Hx Hepatobiliary: No pertinent Hx Psychiatric: No pertinent Hx Musculoskeletal: No pertinent Hx Rheumotologic: No pertinent Hx Infectious Disease: No peritnent Hx ENT: No pertinent Hx Renal/: No pertinent Hx Endocrine: No pertinent Hx Dermatology: No pertinent Hx Others colon cancer Past Surgical History: Other (colectomy) Patient Family History: FH: CHF (congestive heart failure) Smoker: No Hx (Negative) Alocohol: None Drugs: None Domestic Violence: Neg Review of Systems Constitutional: No symptom reported Ears, Nose, & Throat: No symptom reported Eyes: No symptom reported Pulmonary/Respiratory: Dyspnea Cardiovascular: Chest Pain Gastrointestinal: No symptom reported Genitourinary: No symptom reported Musculoskeletal: No symptom reported Skin: No symptom reported Psychiatric: No symptom reported Endocrine: No symptom reported Hemotologic/Lymphatic: No symptom reported H&P Exam Vital Signs Vital Signs Date Time Temp Pulse Resp B/P (MAP) Pulse Ox O2 Delivery O2 Flow Rate FiO2 10/17/24 22:36 112 25 94/46 10/17/24 20:35 95 Nasal Cannula* 6 44 10/17/24 19:05 97.7 97.7 General Appeara: Well developed, Well nourished, Mild distress Head Exam: Normal inspection Neck Exam: Normal inspection, Non-tender, Normal alignment Eye Exam: bilateral eye Normal inspection, bilateral eye PERRL, bilateral eye EOMI Ear Exam: bilateral ear Auricle normal Nasal Exam: Normal inspection Mouth: Normal Inspection Pulmonary/Respiratory: Normal inspection, Normal breath sounds, Chest non- tender, Lungs clear Cardiovascular/Chest: Normal inspection, Regular rate, Normal Rhythm Peripheral Pulses: 2+ dorsalis pedis (R), 2+ dorsalis pedis (L), 2+ Radial (R), 2+ Radial (L) Abdominal Exam: Normal bowel sounds, Soft, No tenderness Rectal Exam: Deferred Back Exam: Normal inspection PLASTIC MOLDING OPERATOR Exam: Normal hearing, Normal speech, PERRL Neuro/Mental St: Alert, Oriented Appearance: Appropriate appearance, Appropriate insight Thoughts/Psych: Normal thought pattern Skin Exam: Normal inspection, Normal color, Warm/dry Labs/Xrays Labs Test 10/17/24 22:10 10/17/24 14:25 10/17/24 14:03 10/17/24 11:30 Range/Units Prothrombin Time 11.9 H 9.3-11.8 sec Prothrombin Time INR 1.13 0.9-1.15 Activated Partial Thromboplast Time 33.9 24.5-34.5 SEC Lactic Acid Level 2.8 *H 0.4-2.0 mmol/L Troponin I High Sensitivity 276 *H </=54 ng/L Urine Color Yellow Yellow Urine Clarity Clear Clear Urine pH 6.0 5.0-9.0 Urine Specific [place] > 1.035 H 1.001-1.035 Urine Protein 3+ H Negative Urine Ketones Negative Negative Urine Blood 1+ H Negative /uL Urine Nitrite Negative Negative Urine Bilirubin Negative Negative Urine Urobilinogen Normal Negative mg/dL Urine Leukocyte Esterase Negative Negative /uL Urine RBC 5 0 - 3 /hpf Urine WBC 5 0 - 3 /hpf Urine Squamous Epithelial Cells Few <5 /hpf Urine Bacteria Few H None Seen /hpf Urine Hyaline Casts Few 0 - 2 /lpf Urine Mucus Few None Seen Urine Glucose Trace Normal mg/dL White Blood Count 25.3 H 4.4-10.8 10^3/uL Red Blood Count 5.72 4.5-5.90 10^6/uL Hemoglobin 17.6 H 13.5-17.5 g/dL Hematocrit 53.8 H 41.0-53.0 % Mean Corpuscular Volume 94.1 80.0-100.0 fL Mean Corpuscular Hemoglobin 30.8 28.0-32.0 pg Mean Corpuscular Hemoglobin Concent 32.8 32.0-36.0 g/dL Red Cell Distribution Width 14.5 H 11.8-14.3 % Platelet Count 116 L 140-450 10^3/uL Mean Platelet Volume 10.4 6.9-10.8 fL Neutrophils (%) (Auto) 37.0-80.0 % Lymphocytes (%) (Auto) 10.0-50.0 % Monocytes (%) (Auto) 0.0-12.0 % Basophils (%) (Auto) 0.0-2.0 % Neutrophils # (Auto) 1.6-8.6 10 ^3/uL Lymphocytes # (Auto) 0.4-5.4 10 ^3/uL Monocytes # (Auto) 0-1.3 10 ^3/uL Differential Total Cells Counted 100.0 100 Neutrophils % (Manual) 85 H 37.0-80.0 Band Neutrophils % (Manual) 0 Lymphocytes % (Manual) 7 L 10.0-50.0 Monocytes % (Manual) 8 0-12 Eosinophils % (Manual) 0 0-7 Basophils % (Manual) 0 0.0-2.0 Metamyelocytes % (manual) 0 Myelocytes % (Manual) 0 Promyelocytes % (Manual) 0 Blast Cells % (Manual) 0 Reactive Lymphocytes 0 Platelet Estimate Decreased Red Blood Cell Morphology Normal D-Dimer, Quantitative 23.87 H 0.0-0.49 mg/L FEU Sodium Level 143 136-145 mmol/L Potassium Level 4.4 3.5-5.1 mmol/L Chloride Level 109 H 98-107 mmol/L Carbon Dioxide Level 18 L 20-31 mmol/L Anion Gap 16 H 5-15 Blood Urea Nitrogen 29 H 9-23 mg/dL Creatinine 1.48 H 0.700-1.30 mg/dL Glomerular Filtration Rate Calc 55 >90 mL/min BUN/Creatinine Ratio 19.6 10.0-20.0 Serum Glucose 191 H 74-106 mg/dL Calcium Level 10.0 8.7-10.4 mg/dL Magnesium Level 2.1 1.6-2.6 mg/dL Total Bilirubin 1.3 H 0.2-1.0 mg/dL Aspartate Amino Transferase (AST) 35 13-40 U/L Alanine Aminotransferase (ALT) 31 7-40 U/L Alkaline Phosphatase 76 46-116 U/L C-Reactive Protein High Sensitivity 1.22 H <1.0 mg/dL B-Type Natriuretic Peptide 208.89 0-100 pg/mL Total Protein 7.3 5.7-8.2 g/dL Albumin 4.6 3.2-4.8 g/dL Thyroid Stimulating Hormone (TSH) 2.39 0.55-4.78 uIU/mL Assessment/Plan Problem List: (1) Pulmonary embolism (2) Shortness of breath Plan 54 yo male with known history of COPD, CHF, DM, Hypertension, colon cancer with colectomy presents with shortness of breath. 1. Bilateral pulmonary embolism 2. shortness of breath 3. acute kidney injury 4. elevated troponin levels Patient was admitted to ICU status post thrombectomy Interventional Radiology consulted in ED patient taken to medical lab assistant for thrombectomy patient per medical lab assistant notes :Large bilateral pulmonary embolus stat us post mechanical thrombectomy of the right and possibly saddle pulmonary embolus. The left pulmonary embolus was unable to be removed. Elevated pulmonary arterial pressure measurement. PLAN: Continue heparin gtt. Neurovascular checks q1hrs. Cardiology consultation, 2D echocardiogram Pulmonology consultation -Heparin drip per pharmacy protocol Supplemental oxygen as needed to keep 02 saturations above 92% Vasopressor as needed for blood pressure support Discussed all above with patient who verbalizes agreement and understanding of care plan. All questions were answered. Discussed care plan with nurse Izabel JEFFRIES. Discussed assessment and care plan with supervising MD Dr. Oden. Plan discussed with: Patient, Other Code Visit Code Visit Total Time (mins): 45 Additional Comments Additional Comments Additional Comments 54-year-old male with a known history of congestive heart failure, COPD, recent diagnosis of colon cancer status post partial colectomy on September 13 at [facility], patient presented to the hospital with chest pain, worsening shortness of breath for last one day found to have 1. Acute hypoxic respiratory failure secondary to bilateral saddle pulmonary embolism currently on high-flow oxygen at 60 L with a FiO2 100% 2. Saddle bilateral pulmonary embolism status post mechanical thrombectomy of the right side, left sided thrombus could not by IR. 3. Acute kidney injury suspected secondary to vasomotor nephropathy 4. Acute congestive heart failure exacerbation 5. Acute pulmonary artery hypertension Suspect secondary to bilateral saddle PE 6. Right lower extremity DVT -patient is status post mechanical thrombectomy of the right side, left-sided thrombus is still there -discussed with the intervention Radiology on-call in detail that patient needs intervention SOTERO. Intervention Radiology Dr. Sherwood requesting another CT PA to have a better access of images before any intervention. -discussed in detail with the patient with the risk of dialysis with contrast induced nephropathy. At this time patient is very critical, need IR intervention SOTERO for left-sided thrombus. -in the meantime keep the heparin drip, follow up Cardiology, Pulmonary, Interventional Radiology recommendation. -Lasix 40 mg IV x1 dose, patient was requesting family update. I called his brother Blaze at [phone] and updated him regarding current critical condition of the patient. He stated that he lives in [place] he may not able to come until the weekend. -we will obtain Nephrology consultation as well. Total critical time 45 minutes including discussion with multiple consultants including Pulmonary Dr. Aviles, radiology Dr. Sherwood. -patient's may not be a tPA candidate as he already had multiple anticoagulants, currently on heparin drip. Patient will be benefitted from mechanical thrombect eun sotero of the left side. KRISTEN OLIVOP Oct 17, 2024 23:06 MAINOR ODEN MD Oct 18, 2024 11:03
--- NOTE | 2024-10-17 23:45 | DVHINCON2 ---
Date of service: Oct 17, 2024 Referring Physician Hannah Reason for Consultation Chest pain History of Present Illness This is a 54-year-old male with a past medical history of COPD, CHF, diabetes mellitus, hypertension presented to the ED with complaints of sudden-onset shortness of breath and chest pain. 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 Patient describes the chest pain as substernal, pressure-like, not increased on inspiration, nonradiating. Patient mentioned that he has been having right-sided calf pain for last seven days. EKG shows tachycardia with T- wave inversion in V3, V4, V5. WBC 25.3, BUN 29, Flavor Room Worker 1.48, CRP 1.22. Troponin 199 > 235 > 276. LA 3.4 with repeat of 2.8. Chest x-ray showed NAD. Bilateral lower extremity venous duplex showed RLE DVT. CTA chest revealed saddle pulmonary embolism in the visualized bilateral pulmonary arteries including the segmental and subsegmental pulmonary arteries. 2.7 x 2.7 x 3.5 cm cystic lesion in the posterior chest wall subcutaneous fat, uncertain etiology but metastatic disease is a consideration. 5.3 cm right adrenal myelolipoma. Multiple hepatic cystic lesions measures up to 2.2 cm are incompletely evaluated. Nodular liver contour could be cirrhosis. Patient was admitted to the hospital. Patient underwent right thrombectomy earlier today. Patient still has left PE. I am asked to consult on this patient. Family History: FH: CHF (congestive heart failure) Allergies: Coded Allergies: NO KNOWN ALLERGIES (Unverified , 10/17/24) Current Medications Current Medications Medications (Trade) Dose Ordered Sig/Rafael Route PRN Reason Start Time Stop Time Status Last Admin Heparin Sodium/ Dextrose 250 ml @ 20 mls/hr [id number] IV 10/17/24 23:00 10/17/24 22:44 Nitroglycerin (Ntrostat Sublingual) 0.4 mg Q5MINP PRN SL FOR CHEST PAIN 10/17/24 17:00 10/17/24 22:26 Morphine Sulfate 2 mg Q30M PRN IV FOR CHEST PAIN 10/17/24 17:00 10/17/24 22:36 Ondansetron HCl (Zofran) 4 mg Q6HPRN PRN IV NAUSEA / VOMITING 10/17/24 20:00 Acetaminophen (Tylenol Tablet) 650 mg Q6HPRN PRN PO TEMP GREATER THAN 100.4 10/17/24 20:00 Acetaminophen/ Hydrocodone Bitart ([place] 5/325MG Tab) 1 tab Q6HPRN PRN PO PAIN SCALE 1 THRU 6 10/17/24 20:00 Diagnostic Test (Pha) (Accu-Chek Comfort Curve T) 1 strip ACHS 10/17/24 22:00 Insulin Human Regular (InsuLIN R) ACHS SC 10/17/24 22:00 Dextrose 50 ml UD PRN IV Blood Sugar LESS THAN 60 10/17/24 20:00 Sennosides (Senokot Tablet) 8.6 mg QHSP PRN PO FOR CONSTIPATION 10/17/24 20:15 Review of Systems As advised in HPI Vital Signs Vital Signs Date Time Temp Pulse Resp B/P (MAP) Pulse Ox O2 Delivery O2 Flow Rate FiO2 10/17/24 22:36 112 25 94/46 10/17/24 20:35 95 Nasal Cannula* 6 44 10/17/24 19:05 97.7 97.7 Physical Exam GENERAL: Awake, alert, oriented. LUNGS: Clear. CARDIOVASCULAR: Heart sounds are good. ABDOMEN: Soft. Labs/Diagnostic Data Labs Test 10/17/24 22:10 10/17/24 14:25 10/17/24 14:03 10/17/24 11:30 Range/Units Prothrombin Time 11.9 H 9.3-11.8 sec Prothrombin Time INR 1.13 0.9-1.15 Activated Partial Thromboplast Time 33.9 24.5-34.5 SEC Lactic Acid Level 2.8 *H 0.4-2.0 mmol/L Troponin I High Sensitivity 276 *H </=54 ng/L Urine Color Yellow Yellow Urine Clarity Clear Clear Urine pH 6.0 5.0-9.0 Urine Specific [place] > 1.035 H 1.001-1.035 Urine Protein 3+ H Negative Urine Ketones Negative Negative Urine Blood 1+ H Negative /uL Urine Nitrite Negative Negative Urine Bilirubin Negative Negative Urine Urobilinogen Normal Negative mg/dL Urine Leukocyte Esterase Negative Negative /uL Urine RBC 5 0 - 3 /hpf Urine WBC 5 0 - 3 /hpf Urine Squamous Epithelial Cells Few <5 /hpf Urine Bacteria Few H None Seen /hpf Urine Hyaline Casts Few 0 - 2 /lpf Urine Mucus Few None Seen Urine Glucose Trace Normal mg/dL White Blood Count 25.3 H 4.4-10.8 10^3/uL Red Blood Count 5.72 4.5-5.90 10^6/uL Hemoglobin 17.6 H 13.5-17.5 g/dL Hematocrit 53.8 H 41.0-53.0 % Mean Corpuscular Volume 94.1 80.0-100.0 fL Mean Corpuscular Hemoglobin 30.8 28.0-32.0 pg Mean Corpuscular Hemoglobin Concent 32.8 32.0-36.0 g/dL Red Cell Distribution Width 14.5 H 11.8-14.3 % Platelet Count 116 L 140-450 10^3/uL Mean Platelet Volume 10.4 6.9-10.8 fL Neutrophils (%) (Auto) 37.0-80.0 % Lymphocytes (%) (Auto) 10.0-50.0 % Monocytes (%) (Auto) 0.0-12.0 % Basophils (%) (Auto) 0.0-2.0 % Neutrophils # (Auto) 1.6-8.6 10 ^3/uL Lymphocytes # (Auto) 0.4-5.4 10 ^3/uL Monocytes # (Auto) 0-1.3 10 ^3/uL Differential Total Cells Counted 100.0 100 Neutrophils % (Manual) 85 H 37.0-80.0 Band Neutrophils % (Manual) 0 Lymphocytes % (Manual) 7 L 10.0-50.0 Monocytes % (Manual) 8 0-12 Eosinophils % (Manual) 0 0-7 Basophils % (Manual) 0 0.0-2.0 Metamyelocytes % (manual) 0 Myelocytes % (Manual) 0 Promyelocytes % (Manual) 0 Blast Cells % (Manual) 0 Reactive Lymphocytes 0 Platelet Estimate Decreased Red Blood Cell Morphology Normal D-Dimer, Quantitative 23.87 H 0.0-0.49 mg/L FEU Sodium Level 143 136-145 mmol/L Potassium Level 4.4 3.5-5.1 mmol/L Chloride Level 109 H 98-107 mmol/L Carbon Dioxide Level 18 L 20-31 mmol/L Anion Gap 16 H 5-15 Blood Urea Nitrogen 29 H 9-23 mg/dL Creatinine 1.48 H 0.700-1.30 mg/dL Glomerular Filtration Rate Calc 55 >90 mL/min BUN/Creatinine Ratio 19.6 10.0-20.0 Serum Glucose 191 H 74-106 mg/dL Calcium Level 10.0 8.7-10.4 mg/dL Magnesium Level 2.1 1.6-2.6 mg/dL Total Bilirubin 1.3 H 0.2-1.0 mg/dL Aspartate Amino Transferase (AST) 35 13-40 U/L Alanine Aminotransferase (ALT) 31 7-40 U/L Alkaline Phosphatase 76 46-116 U/L C-Reactive Protein High Sensitivity 1.22 H <1.0 mg/dL B-Type Natriuretic Peptide 208.89 0-100 pg/mL Total Protein 7.3 5.7-8.2 g/dL Albumin 4.6 3.2-4.8 g/dL Thyroid Stimulating Hormone (TSH) 2.39 0.55-4.78 uIU/mL Assessment Bilateral pulmonary embolism. Status post thrombectomy. Shortness of breath. Acute kidney injury. Elevated troponin level. Plan/Recommendation I agree with your ongoing assessment and care of plan. Echocardiogram. Heparin drip per pharmacy protocol. Morphine and [place] for pain management. Additional plan as per the hospital course. Critical care time of 90 minutes provided to include time spent evaluation of patient at bedside, when appropriate patient/family education for diagnosis, treatment plan, review of pertinent medical information and discussion of care with specialty providers and PCP. Plan discussed with: Patient LYNNE FU MD Oct 17, 2024 22:55
[2024-10-18] VITALS (99 sets, daily range): BP systolic 70–136; BP diastolic 39–94; PULSE 86–124; RESP 17–43; TEMP 97.5–98.7; O2SAT 89–100
[2024-10-18] MEDS: SODIUM CHLORIDE 0.9% 250 ML IV ONE (00:15)
[2024-10-18] MEDS: SODIUM CHLORIDE 0.9% 750 ML IV ONE (00:30)
--- NOTE | 2024-10-18 00:44 | DVH ---
CHEST RADIOGRAPH Indication: SOB Technique: Single frontal view of the chest was obtained COMPARISON: XY CHEST PORTABLE on DOS: 10/17/24 FINDINGS: Lines and Tubes: None Lungs: Clear Pleura: No effusion. No pneumothorax. Cardiomediastinal contours: Unremarkable Bones: Unremarkable IMPRESSION: 1. No acute disease.
[2024-10-18 00:45] LABS: Basophils # (auto) 0.1 10 ^3/uL (0-0.2); Basophils % (auto) 0.4 % (0.0-2.0); Eosinophils # (auto) 0.1 10 ^3/uL (0-0.8); Eosinophils % (auto) 1.1 % (0.0-7.0); Hematocrit 50.3 % (41.0-53.0); Hemoglobin 15.9 g/dL (13.5-17.5); Lymphocytes # (auto) 2.9 10 ^3/uL (0.4-5.4); Lymphocytes % (auto) 23.1 % (10.0-50.0); Mean Corpuscular Hemoglobin 30.6 pg (28.0-32.0); Mean Corpuscular Hgb Conc. 31.7 g/dL (32.0-36.0); Mean Corpuscular Volume 96.5 fL (80.0-100.0); Monocytes # (auto) 1.3 10 ^3/uL (0-1.3); Monocytes % (auto) 10.3 % (0.0-12.0); Neutrophils # (auto) 8.1 10 ^3/uL (1.6-8.6); Neutrophils % (auto) 65.1 % (37.0-80.0); Nucleated Red Blood Cells % 0.2 %; Platelet Count (auto) 84 10^3/uL (140-450); Red Blood Cells 5.21 10^6/uL (4.5-5.90); Red Cell Distribution Width 15.3 % (11.8-14.3); White Blood Cell 12.4 10^3/uL (4.4-10.8)
[2024-10-18 00:46] LABS: Base Excess -5.2 mmol/L (-2.0-3.0)
[2024-10-18] MEDS: NOREPINEPHRINE 8 MG/250ML KIT 250 ML IV SCH ×2 (01:50→02:37)
[2024-10-18] MEDS: SODIUM CHLORIDE 0.9% 1,000 ML IV SCH (01:50)
[2024-10-18] MEDS: SODIUM CHLORIDE 0.9% 1,000 ML IV ONE (01:50)
[2024-10-18 04:21] LABS: Basophils # (auto) 0 10 ^3/uL (0-0.2); Basophils % (auto) 0.3 % (0.0-2.0); Eosinophils # (auto) 0.1 10 ^3/uL (0-0.8); Eosinophils % (auto) 0.8 % (0.0-7.0); Hematocrit 45.2 % (41.0-53.0); Lymphocytes # (auto) 2.3 10 ^3/uL (0.4-5.4); Lymphocytes % (auto) 16.9 % (10.0-50.0); Mean Corpuscular Hemoglobin 31.4 pg (28.0-32.0); Mean Corpuscular Hgb Conc. 33.1 g/dL (32.0-36.0); Mean Corpuscular Volume 95.1 fL (80.0-100.0); Monocytes # (auto) 1.2 10 ^3/uL (0-1.3); Monocytes % (auto) 8.4 % (0.0-12.0); Neutrophils # (auto) 10.2 10 ^3/uL (1.6-8.6); Neutrophils % (auto) 73.6 % (37.0-80.0); Nucleated Red Blood Cells % 0.1 %; Platelet Count (auto) 91 10^3/uL (140-450); Red Blood Cells 4.76 10^6/uL (4.5-5.90); Red Cell Distribution Width 14.8 % (11.8-14.3); White Blood Cell 13.9 10^3/uL (4.4-10.8)
[2024-10-18 04:28] LABS: Anion Gap 13 (5-15); Carbon Dioxide 17 mmol/L (20-31); Chloride 113 mmol/L (98-107); Potassium 4.3 mmol/L (3.5-5.1); Sodium 143 mmol/L (136-145)
[2024-10-18 04:29] LABS: Calcium 8.2 mg/dL (8.7-10.4)
[2024-10-18 04:34] LABS: BUN/Creatinine Ratio 15.2 (10.0-20.0); Blood Urea Nitrogen 25 mg/dL (9-23); Glucose 210 mg/dL (74-106)
[2024-10-18 05:38] LABS: Large Platelets FEW; Platelet Estimate Decrea
[2024-10-18] MEDS: LORazepam 2MG/ML-1ML VIAL IV ONE (06:21)
[2024-10-18 07:02] LABS: INR 1.84 (0.9-1.15); Prothrombin Time 18.6 sec (9.3-11.8)
[2024-10-18 07:03] LABS: Partial Thromboplastin Time > 139.0 SEC (24.5-34.5)
[2024-10-18] MEDS: FUROSEMIDE 40 MG/4 ML VIAL ONE (09:55)
[2024-10-18] MEDS: FUROSEMIDE 40 MG/4 ML VIAL IV ONE (11:21)
--- NOTE | 2024-10-18 12:21 | DVHINCON2 ---
Date of service: Oct 18, [address] Kulkarni Reason for Consultation Acute kidney injury History of Present Illness is a 54-year-old male with multiple chronic medical problems who presented for further evaluation and management of dyspnea. His clinical course has been notable for diagnosis of a saddle pulmonary embolism. Underwent emergent thrombectomy effort through Interventional Radiology on the day admission. He was seen in the intensive care unit. Current consultation was requested for follow-up of his kidney function during time course of current acute illness. He is awake alert, he is visibly tachypneic and in distress. He is currently he is on high-flow oxygen. Serum creatinine has up trended slightly since admission. He remains on a heparin drip. Past Medical History COPD, CHF, diabetes mellitus, hypertension, colon CA s/p hemicolectomy. Past Surgical History History of hemicolectomy Allergies: Coded Allergies: NO KNOWN ALLERGIES (Unverified , 10/17/24) Current Medications Current Medications Medications (Trade) Dose Ordered Sig/Rafael Route PRN Reason Start Time Stop Time Status Last Admin Heparin Sodium/ Dextrose 250 ml @ 20 mls/hr [id number] IV 10/17/24 23:00 10/18/24 09:58 Nitroglycerin (Ntrostat Sublingual) 0.4 mg Q5MINP PRN SL FOR CHEST PAIN 10/17/24 17:00 10/17/24 22:26 Morphine Sulfate 2 mg Q30M PRN IV FOR CHEST PAIN 10/17/24 17:00 10/17/24 22:36 Ondansetron HCl (Zofran) 4 mg Q6HPRN PRN IV NAUSEA / VOMITING 10/17/24 20:00 Acetaminophen (Tylenol Tablet) 650 mg Q6HPRN PRN PO TEMP GREATER THAN 100.4 10/17/24 20:00 Acetaminophen/ Hydrocodone Bitart ([place] 5/325MG Tab) 1 tab Q6HPRN PRN PO PAIN SCALE 1 THRU 6 10/17/24 20:00 Diagnostic Test (Pha) (Accu-Chek Comfort Curve T) 1 strip ACHS 10/17/24 22:00 10/18/24 12:04 Insulin Human Regular (InsuLIN R) ACHS SC 10/17/24 22:00 10/18/24 12:06 Dextrose 50 ml UD PRN IV Blood Sugar LESS THAN 60 10/17/24 20:00 Sennosides (Senokot Tablet) 8.6 mg QHSP PRN PO FOR CONSTIPATION 10/17/24 20:15 Norepinephrine Bitartrate 250 ml @ 3.75 mls/hr Q24H IV 10/18/24 00:15 10/18/24 02:22 DC 10/18/24 01:50 Sodium Chloride 1,000 ml @ 100 mls/hr Q10H IV 10/18/24 00:30 10/18/24 10:31 DC 10/18/24 03:58 Norepinephrine Bitartrate 250 ml @ 3.75 mls/hr Q24H IV 10/18/24 02:30 10/18/24 07:33 Lorazepam (Ativan Inj) 0.5 mg Q4HP PRN IV ANXIETY 10/18/24 08:15 Family History: FH: CHF (congestive heart failure) Review of Systems + shortness of breath + pleuritic chest pain H&P Exam Vital Signs/I&O Vital Sign Date Time Temp Pulse Resp B/P (MAP) Pulse Ox O2 Delivery O2 Flow Rate FiO2 10/18/24 11:53 106 29 95 40.0 100 10/18/24 11:21 104/89 10/18/24 08:00 Hi-Flow NC 10/18/24 08:00 98.7 98.7 Intake and Output 10/17/24 10/18/24 19:00 07:00 Intake Total 2516.25 ml Output Total 400 ml Balance 2116.25 ml Intake Oral 720 ml IV Total 1796.25 ml Output Urine Total 400 ml Physical Exam Gen: Tachypneic, obese heent: nc/at, mmm lungs: Occasional rhonchi cvs: no rub abd: soft, bowel sounds audible ext: Trace edema skin: no rash neuro: alert and oriented Labs/Diagnostic Data Labs/Diagnostic Data Laboratory Tests Test 10/18/24 06:26 10/18/24 05:23 10/18/24 03:20 10/18/24 00:31 Range/Units POC Glucose 231 H 70-106 mg/dl Prothrombin Time 18.6 H 9.3-11.8 sec Prothrombin Time INR 1.84 H 0.9-1.15 Activated Partial Thromboplast Time > 139.0 *H 24.5-34.5 SEC White Blood Count 13.9 H 4.4-10.8 10^3/uL Red Blood Count 4.76 4.5-5.90 10^6/uL Hemoglobin 15.0 13.5-17.5 g/dL Hematocrit 45.2 # 41.0-53.0 % Mean Corpuscular Volume 95.1 80.0-100.0 fL Mean Corpuscular Hemoglobin 31.4 28.0-32.0 pg Mean Corpuscular Hemoglobin Concent 33.1 32.0-36.0 g/dL Red Cell Distribution Width 14.8 H 11.8-14.3 % Platelet Count 91 L 140-450 10^3/uL Mean Platelet Volume 10.2 6.9-10.8 fL Neutrophils (%) (Auto) 73.6 37.0-80.0 % Lymphocytes (%) (Auto) 16.9 10.0-50.0 % Monocytes (%) (Auto) 8.4 0.0-12.0 % Eosinophils (%) (Auto) 0.8 0.0-7.0 % Basophils (%) (Auto) 0.3 0.0-2.0 % Neutrophils # (Auto) 10.2 H 1.6-8.6 10 ^3/uL Lymphocytes # (Auto) 2.3 0.4-5.4 10 ^3/uL Monocytes # (Auto) 1.2 0-1.3 10 ^3/uL Eosinophils # (Auto) 0.1 0-0.8 10 ^3/uL Basophils # (Auto) 0 0-0.2 10 ^3/uL Nucleated Red Blood Cells 0.1 % Platelet Estimate Decrea Large Platelets Few Sodium Level 143 136-145 mmol/L Potassium Level 4.3 3.5-5.1 mmol/L Chloride Level 113 H 98-107 mmol/L Carbon Dioxide Level 17 L 20-31 mmol/L Anion Gap 13 5-15 Blood Urea Nitrogen 25 H 9-23 mg/dL Creatinine 1.65 H 0.700-1.30 mg/dL Glomerular Filtration Rate Calc 48 >90 mL/min BUN/Creatinine Ratio 15.2 10.0-20.0 Serum Glucose 210 H 74-106 mg/dL Calcium Level 8.2 L 8.7-10.4 mg/dL B-Type Natriuretic Peptide 682.11 0-100 pg/mL Blood Gas Specimen Type Arterial Blood Gas Sample Site Left radial Blood Gas Patient Temperature 37.0 Arterial Blood Date Drawn [id number] Arterial Blood pH 7.404 7.350-7.450 Arterial Blood Partial Pressure CO2 29.1 L 35.0-48.0 mmHg Arterial Blood Partial Pressure O2 67.5 L 83.0-108.0 mmHg Arterial Blood HCO3 17.8 L 21.0-28.0 mmol/L Arterial Blood Oxygen Saturation 92.0 L 94.0-98.0 % Arterial Blood Base Excess -5.2 L -2.0-3.0 mmol/L Arterial Blood Oxyhemoglobin 91.4 L 94.0-98.0 % Arterial Blood Carboxyhemoglobin 0.5 0.5-1.5 % Arterial Blood Methemoglobin 0.1 0.0-1.5 % Chano Test Yes Blood Gas Total Hemoglobin 17.00 13.5-17.5 g/dL Blood Gas Liter Flow 15.00 Blood Gas Modality Mask - nrb FiO2 % 100.0 Specimen Drawn By Blood Gas Notified Time [id number] Blood Gas Notified By Test 10/17/24 22:55 10/17/24 22:10 10/17/24 14:25 10/17/24 14:03 Range/Units POC Glucose 200 H 70-106 mg/dl White Blood Count 12.4 #H 4.4-10.8 10^3/uL Red Blood Count 5.21 4.5-5.90 10^6/uL Hemoglobin 15.9 13.5-17.5 g/dL Hematocrit 50.3 41.0-53.0 % Mean Corpuscular Volume 96.5 80.0-100.0 fL Mean Corpuscular Hemoglobin 30.6 28.0-32.0 pg Mean Corpuscular Hemoglobin Concent 31.7 L 32.0-36.0 g/dL Red Cell Distribution Width 15.3 H 11.8-14.3 % Platelet Count 84 L 140-450 10^3/uL Mean Platelet Volume 10.0 6.9-10.8 fL Neutrophils (%) (Auto) 65.1 37.0-80.0 % Lymphocytes (%) (Auto) 23.1 10.0-50.0 % Monocytes (%) (Auto) 10.3 0.0-12.0 % Eosinophils (%) (Auto) 1.1 0.0-7.0 % Basophils (%) (Auto) 0.4 0.0-2.0 % Neutrophils # (Auto) 8.1 1.6-8.6 10 ^3/uL Lymphocytes # (Auto) 2.9 0.4-5.4 10 ^3/uL Monocytes # (Auto) 1.3 0-1.3 10 ^3/uL Eosinophils # (Auto) 0.1 0-0.8 10 ^3/uL Basophils # (Auto) 0.1 0-0.2 10 ^3/uL Nucleated Red Blood Cells 0.2 % Prothrombin Time 11.9 H 12.7 H 9.3-11.8 sec Prothrombin Time INR 1.13 1.22 H 0.9-1.15 Activated Partial Thromboplast Time 33.9 24.5-34.5 SEC Lactic Acid Level 2.8 *H 0.4-2.0 mmol/L Troponin I High Sensitivity 276 *H </=54 ng/L Urine Color Yellow Yellow Urine Clarity Clear Clear Urine pH 6.0 5.0-9.0 Urine Specific [place] > 1.035 H 1.001-1.035 Urine Protein 3+ H Negative Urine Ketones Negative Negative Urine Blood 1+ H Negative /uL Urine Nitrite Negative Negative Urine Bilirubin Negative Negative Urine Urobilinogen Normal Negative mg/dL Urine Leukocyte Esterase Negative Negative /uL Urine RBC 5 0 - 3 /hpf Urine WBC 5 0 - 3 /hpf Urine Squamous Epithelial Cells Few <5 /hpf Urine Bacteria Few H None Seen /hpf Urine Hyaline Casts Few 0 - 2 /lpf Urine Mucus Few None Seen Urine Glucose Trace Normal mg/dL Test 10/17/24 12:52 10/17/24 12:40 10/17/24 11:30 Range/Units Troponin I High Sensitivity 235 *H 199 *H </=54 ng/L Lactic Acid Level 3.4 *H 0.4-2.0 mmol/L White Blood Count 25.3 H 4.4-10.8 10^3/uL Red Blood Count 5.72 4.5-5.90 10^6/uL Hemoglobin 17.6 H 13.5-17.5 g/dL Hematocrit 53.8 H 41.0-53.0 % Mean Corpuscular Volume 94.1 80.0-100.0 fL Mean Corpuscular Hemoglobin 30.8 28.0-32.0 pg Mean Corpuscular Hemoglobin Concent 32.8 32.0-36.0 g/dL Red Cell Distribution Width 14.5 H 11.8-14.3 % Platelet Count 116 L 140-450 10^3/uL Mean Platelet Volume 10.4 6.9-10.8 fL Neutrophils (%) (Auto) 37.0-80.0 % Lymphocytes (%) (Auto) 10.0-50.0 % Monocytes (%) (Auto) 0.0-12.0 % Basophils (%) (Auto) 0.0-2.0 % Neutrophils # (Auto) 1.6-8.6 10 ^3/uL Lymphocytes # (Auto) 0.4-5.4 10 ^3/uL Monocytes # (Auto) 0-1.3 10 ^3/uL Differential Total Cells Counted 100.0 100 Neutrophils % (Manual) 85 H 37.0-80.0 Band Neutrophils % (Manual) 0 Lymphocytes % (Manual) 7 L 10.0-50.0 Monocytes % (Manual) 8 0-12 Eosinophils % (Manual) 0 0-7 Basophils % (Manual) 0 0.0-2.0 Metamyelocytes % (manual) 0 Myelocytes % (Manual) 0 Promyelocytes % (Manual) 0 Blast Cells % (Manual) 0 Reactive Lymphocytes 0 Platelet Estimate Decreased Red Blood Cell Morphology Normal Prothrombin Time 12.9 H 9.3-11.8 sec Prothrombin Time INR 1.24 H 0.9-1.15 Activated Partial Thromboplast Time 32.5 24.5-34.5 SEC D-Dimer, Quantitative 23.87 H 0.0-0.49 mg/L FEU Sodium Level 143 136-145 mmol/L Potassium Level 4.4 3.5-5.1 mmol/L Chloride Level 109 H 98-107 mmol/L Carbon Dioxide Level 18 L 20-31 mmol/L Anion Gap 16 H 5-15 Blood Urea Nitrogen 29 H 9-23 mg/dL Creatinine 1.48 H 0.700-1.30 mg/dL Glomerular Filtration Rate Calc 55 >90 mL/min BUN/Creatinine Ratio 19.6 10.0-20.0 Serum Glucose 191 H 74-106 mg/dL Calcium Level 10.0 8.7-10.4 mg/dL Magnesium Level 2.1 1.6-2.6 mg/dL Total Bilirubin 1.3 H 0.2-1.0 mg/dL Aspartate Amino Transferase (AST) 35 13-40 U/L Alanine Aminotransferase (ALT) 31 7-40 U/L Alkaline Phosphatase 76 46-116 U/L C-Reactive Protein High Sensitivity 1.22 H <1.0 mg/dL B-Type Natriuretic Peptide 208.89 0-100 pg/mL Total Protein 7.3 5.7-8.2 g/dL Albumin 4.6 3.2-4.8 g/dL Thyroid Stimulating Hormone (TSH) 2.39 0.55-4.78 uIU/mL Assessment IMP: 1) Hemodynamically mediated and nephrotoxic [place] 2) saddle pulmonary embolism 3) acute hypoxemic respiratory failure 4) history of colon cancer 5) chronic kidney disease stage 3? REC: - patient is at high risk for further progression of acute kidney injury. - Mr. Mock stated he is aware of possibility of worsening kidney function and in no uncertain terms approved and he required further diagnostic and or therapeutic interventions needed to manage his condition. He is certainly cleared to undergo any further IV contrast exposure as deemed Clinically necessary. - obtained an echocardiogram to evaluate for right ventricular strain pattern. - b.i.d. chemistry panels, we will continue to follow closely along with you. Thank you for the consultation. Plan discussed with: Patient EARNEST CAREY MD Oct 18, 2024 12:21
[2024-10-18 15:00] LABS: INR 1.16 (0.9-1.15); Prothrombin Time 12.2 sec (9.3-11.8)
--- NOTE | 2024-10-18 15:17 | DVHSR ---
APPROVED REPORT EXAM: LIMITED Two-dimensional echocardiogram. Blood Pressure: 104/89 mmHg INDICATION Saddle PE RISK FACTORS Height: 5' 11", Weight: 293 DIMENSIONS LVDd4.0 (3.8-5.7cm)LA (2D) (1.9-4.0cm)Aortic Root (2.0-3.7cm) LVDs3.2 (2.5-4.0cm)LA (MM) (1.9-4.0cm)Aortic Cusp Exc (1.5-2.0cm) EF (%) 40.0 (55-70%)Rt. Atrium (1.9-4.0cm)Asc. Aorta cm IVSd1.5 (0.7-1.1cm)RV (D) (1.8-2.4cm) PWd1.4 (0.7-1.1cm) Mitral Valve MitralMitral Stenosis E/A ratio0.02D MVAcm2 Tricuspid Valve TR Velocity4.00m/s [id number] Other Information Quality : Technically LimitedRhythm : Technically limited study due to body habitus. Conclusion 1. REMARKABLY DILATED RV AND RA 2. SEVERE HYPOKINESIS OF RV 3. NO MORE ECHOGENIC STRUCTURE IN RV AND RA 4. HYPOKINESIS OF RV IS NOT IMPROVED COMPARED WITH STUDY OF 10/17/24 5. LV CAVITY HAS BECOME REMARKABLY SMALLER DUE TO SIGNIFICANT RV DILATATION 6. NORMAL VALVES 7. NO EFFUSION 8. LV IS HYPERDYNAMIC AND EF IS 75% PLUS WITH DYSKINESIS OF IVS 9. CRITICAL PULMONARY HYPERTENSION ,RVSP IS 86 MM OF HG AND IS EXREMELY HIGH 10. STUDY CONFIRM CRITICAL RV FAILURE
--- NOTE | 2024-10-18 15:44 | DVHPN2 ---
Subjective Patient was seen earlier during the day as well, I am rounding on the patient again in the presence of nurse. Patient just had a bowel movement and was out of breath. Patient O2 requirement is 40 L as compared to 60 lead this morning but FiO2 still 100% and on high-flow oxygen. Reviewed: Care Plan Changes from previous H/P or p: No Changes Objective Vitals Vital Signs Date Time Temp Pulse Resp B/P (MAP) Pulse Ox O2 Delivery O2 Flow Rate FiO2 10/18/24 15:15 105 26 102/78 (86) 93 10/18/24 14:31 40.0 100 10/18/24 14:00 Hi-Flow NC 10/18/24 12:00 97.8 97.8 Intake/Output Intake and Output 10/18/24 07:00 Intake Total 2516.25 ml Output Total 400 ml Balance 2116.25 ml Intake Oral 720 ml IV Total 1796.25 ml Output Urine Total 400 ml Exam HEENT pupils are reactive Neck is supple CV is S1-S2 regular rhythm positive tachycardic with 100-110 Respiratory bilateral diminished breath sound bases GI posterior bowel sounds Extremities trace edema LEADITE MAN no motor deficit Medications Current Medications Medications Dose Ordered Sig/Rafael Route Start Time Stop Time Status Last Admin Dose Admin Heparin Sodium/ Dextrose 250 ml @ 20 mls/hr [id number] IV 10/17/24 23:00 10/18/24 09:58 17 MLS/HR Nitroglycerin 0.4 mg Q5MINP PRN SL 10/17/24 17:00 10/17/24 22:26 0.4 MG Morphine Sulfate 2 mg Q30M PRN IV 10/17/24 17:00 10/17/24 22:36 2 MG Ondansetron HCl 4 mg Q6HPRN PRN IV 10/17/24 20:00 Acetaminophen 650 mg Q6HPRN PRN PO 10/17/24 20:00 Acetaminophen/ Hydrocodone Bitart 1 tab Q6HPRN PRN PO 10/17/24 20:00 Diagnostic Test (Pha) 1 strip ACHS 10/17/24 22:00 10/18/24 12:04 1 STRIP Insulin Human Regular ACHS SC 10/17/24 22:00 10/18/24 12:06 6 UNITS Dextrose 50 ml UD PRN IV 10/17/24 20:00 Sennosides 8.6 mg QHSP PRN PO 10/17/24 20:15 Norepinephrine Bitartrate 250 ml @ 3.75 mls/hr Q24H IV 10/18/24 02:30 10/18/24 07:33 30 MLS/HR Lorazepam 0.5 mg Q4HP PRN IV 10/18/24 08:15 Laboratory Results Laboratory Tests 10/18/24 03:20 Chemistry Test 10/18/24 03:20 Calcium Level 8.2 mg/dL (8.7-10.4) L Coagulation Test 10/17/24 22:10 10/18/24 05:23 10/18/24 14:18 Prothrombin Time 11.9 sec (9.3-11.8) H 18.6 sec (9.3-11.8) H 12.2 sec (9.3-11.8) H Prothrombin Time INR 1.13 (0.9-1.15) 1.84 (0.9-1.15) H 1.16 (0.9-1.15) H Activated Partial Thromboplast Time > 139.0 SEC (24.5-34.5) *H 61.0 SEC (24.5-34.5) H Cardiac Markers Test 10/18/24 03:20 B-Type Natriuretic Peptide 682.11 pg/mL (0-100) Urinalysis Test 10/17/24 14:03 Urine Color Yellow (Yellow) Urine Clarity Clear (Clear) Urine pH 6.0 (5.0-9.0) Urine Specific [place] > 1.035 (1.001-1.035) Urine Protein 3+ (Negative) H Urine Ketones Negative (Negative) Urine Blood 1+ /uL (Negative) H Urine Nitrite Negative (Negative) Urine Bilirubin Negative (Negative) Urine Urobilinogen Normal mg/dL (Negative) Urine Leukocyte Esterase Negative /uL (Negative) Urine RBC 5 /hpf (0 - 3) Urine WBC 5 /hpf (0 - 3) Urine Squamous Epithelial Cells Few /hpf (<5) Urine Bacteria Few /hpf (None Seen) H Urine Hyaline Casts Few /lpf (0 - 2) Urine Mucus Few (None Seen) Urine Glucose Trace mg/dL (Normal) Blood Gas Results Test 10/18/24 00:31 Arterial Blood pH 7.404 (7.350-7.450) FiO2 % 100.0 Microbiology Microbiology Date/Time Source Procedure Growth Status 10/17/24 18:00 Nose MRSA Screen - Final Complete 10/17/24 12:52 Blood Blood Culture - Preliminary NO GROWTH AFTER 24 HOURS OF INCUBATION. Resulted Assessment/Plan Assessment/Plan 54-year-old male with a known history of congestive heart failure, COPD, recent diagnosis of colon cancer status post partial colectomy on September 13 at [facility] [place], patient presented to the hospital with chest pain, worsening shortness of breath for last one day found to have 1. Acute hypoxic respiratory failure secondary to bilateral saddle pulmonary embolism currently on high-flow oxygen at 40 L with a FiO2 100% 2. Saddle bilateral pulmonary embolism status post mechanical thrombectomy of the right side, left-sided saddle PE 3. Acute kidney injury suspected secondary to vasomotor nephropathy 4. Acute congestive heart failure exacerbation unspecified 5. Acute pulmonary artery hypertension suspect secondary to bilateral saddle PE 6. Right lower extremity DVT -continue heparin drip, intervention Radiology consult for left-sided mechanical thrombectomy -patient remains critical, prognosis remain guarded -pulmonary consultation, cardiology consultation already on board -plan of care discussed with the patient who understand, verbalized understanding and agreeable to plan, critical condition and guarded prognosis was explained to the patient. Plan discussed with: Patient, Other (Patient was bedside RN.) My Orders Orders - MAINOR ODEN MD Procedure Category Date Status Time *Dr. [facility] CONS 10/18/24 Transmitted -High [facility] 09:42 *Consult CONS 10/18/24 Transmitted / 10:28 Date of Service: Oct 18, 2024 Billing Provider: MAINOR ODEN MD Common Visit Codes: NOT BILLABLE MAINOR ODEN MD Oct 18, 2024 15:44
--- NOTE | 2024-10-18 17:53 | DVHPN2 ---
Progress Note - Dictate Date Seen: Oct 18, 2024 Medical Necessity Reason Pt with a Central, PICC or Fol: No vital signs Vital Sign Date Time Temp Pulse Resp B/P (MAP) Pulse Ox O2 Delivery O2 Flow Rate FiO2 10/18/24 16:13 94 26 94 40.0 100 10/18/24 16:00 Hi-Flow NC 10/18/24 16:00 95/70 10/18/24 12:00 97.8 97.8 Total Intake and Output 10/17/24 10/17/24 10/18/24 15:00 23:00 07:00 Intake Total 20 ml 2496.25 ml Output Total 400 ml Balance 20 ml 2096.25 ml medications Current Medications Medications Dose Ordered Sig/Rafael Route Start Time Stop Time Status Last Admin Dose Admin Heparin Sodium/ Dextrose 250 ml @ 20 mls/hr [id number] IV 10/17/24 23:00 10/18/24 09:58 17 MLS/HR Nitroglycerin 0.4 mg Q5MINP PRN SL 10/17/24 17:00 10/17/24 22:26 0.4 MG Morphine Sulfate 2 mg Q30M PRN IV 10/17/24 17:00 10/17/24 22:36 2 MG Ondansetron HCl 4 mg Q6HPRN PRN IV 10/17/24 20:00 Acetaminophen 650 mg Q6HPRN PRN PO 10/17/24 20:00 Acetaminophen/ Hydrocodone Bitart 1 tab Q6HPRN PRN PO 10/17/24 20:00 Diagnostic Test (Pha) 1 strip ACHS 10/17/24 22:00 10/18/24 16:39 1 STRIP Insulin Human Regular ACHS SC 10/17/24 22:00 10/18/24 16:42 4 UNITS Dextrose 50 ml UD PRN IV 10/17/24 20:00 Sennosides 8.6 mg QHSP PRN PO 10/17/24 20:15 Norepinephrine Bitartrate 250 ml @ 3.75 mls/hr Q24H IV 10/18/24 02:30 10/18/24 07:33 30 MLS/HR Lorazepam 0.5 mg Q4HP PRN IV 10/18/24 08:15 laboratory and microbiology Laboratory Tests 10/18/24 03:20 Test 10/18/24 03:20 Range/Units Serum Glucose 210 H 74-106 mg/dL Assessment/Plan Interventional Radiology Note: 54 male with complex medical history including CHF, abdominal surgery presented with hypoxia, tachycardia to 120s and found to have saddle pulmonary embolus with RV strain, elevated troponins. A mechanical thrombectomy was performed of the saddle PE, and only the right sided embolus was removed. Pulmonary artery pressure measurements were obtained which were elevated. The left pulmonary embolus was unable to be removed due to procedure time length and patient anxiety/discomfort. He was then admitted to the ICU for heparin gtt and close hemodynamic monitoring. However, overnight he decompensated and required pressor support. Due to his hemodynamic instability, recommend IV tPa. Additionally, recommend follow up CTPA. Appreciate cares per the primary and the ICU team. Plan discussed with: Other BOAZ CHERRY MD Oct 18, 2024 17:53
--- NOTE | 2024-10-18 19:39 | DVHPN2 ---
Progress Note - Dictate Date Seen: Oct 18, 2024 Medical Necessity Reason Pt with a Central, PICC or Fol: No Subjective Patient seen and examined at bedside. Remains on supplemental oxygen Overnight events reviewed. vital signs Vital Sign Date Time Temp Pulse Resp B/P (MAP) Pulse Ox O2 Delivery O2 Flow Rate FiO2 10/18/24 18:45 99 26 127/91 (103) 94 10/18/24 18:21 40.0 90 10/18/24 18:00 Hi-Flow NC 10/18/24 16:00 97.6 97.6 Total Intake and Output 10/17/24 10/17/24 10/18/24 14:59 22:59 06:59 Intake Total 2386.25 ml Output Total 400 ml Balance 1986.25 ml medications Current Medications Medications Dose Ordered Sig/Rafael Route Start Time Stop Time Status Last Admin Dose Admin Heparin Sodium/ Dextrose 250 ml @ 20 mls/hr [id number] IV 10/17/24 23:00 10/18/24 09:58 17 MLS/HR Nitroglycerin 0.4 mg Q5MINP PRN SL 10/17/24 17:00 10/17/24 22:26 0.4 MG Morphine Sulfate 2 mg Q30M PRN IV 10/17/24 17:00 10/17/24 22:36 2 MG Ondansetron HCl 4 mg Q6HPRN PRN IV 10/17/24 20:00 Acetaminophen 650 mg Q6HPRN PRN PO 10/17/24 20:00 Acetaminophen/ Hydrocodone Bitart 1 tab Q6HPRN PRN PO 10/17/24 20:00 Diagnostic Test (Pha) 1 strip ACHS 10/17/24 22:00 10/18/24 16:39 1 STRIP Insulin Human Regular ACHS SC 10/17/24 22:00 10/18/24 16:42 4 UNITS Dextrose 50 ml UD PRN IV 10/17/24 20:00 Sennosides 8.6 mg QHSP PRN PO 10/17/24 20:15 Norepinephrine Bitartrate 250 ml @ 3.75 mls/hr Q24H IV 10/18/24 02:30 10/18/24 07:33 30 MLS/HR Lorazepam 0.5 mg Q4HP PRN IV 10/18/24 08:15 objective Gen.: Patient lying in bed in no apparent distress. On supplemental oxygen. Head: Normocephalic, atraumatic. Eyes: EOMI/PERRLA. Ears: Normal hearing. Normal anatomy. Neck/trachea: Trachea midline, supple. Nose: Normal external anatomy. Mouth: Moist mucous membranes. Chest: Decreased air entry bilaterally. No wheezing or rhonchi. Cardiovascular: Positive S1, positive S2. Regular rate and rhythm. Abdomen: Positive bowel sounds in all 4 quadrants. Soft, non-tender, non- distended. : Deferred. Rectal: Deferred. Skin: Warm, dry. Intact. Extremities: 2+ radial pulses bilaterally. No lower extremity edema. Neuro: Awake, alert, oriented x3. No gross motor or sensory deficits. Cranial nerves II through XII intact. Gait not assessed. laboratory and microbiology Laboratory Tests 10/18/24 03:20 Test 10/18/24 03:20 Range/Units Serum Glucose 210 H 74-106 mg/dL Assessment/Plan Impression: Acute hypoxic respiratory failure Saddle pulmonary embolism DM type II Chronic obstructive pulmonary disease Congestive heart failure Colon cancer S/p hemicolectomy Morbid obesity, BMI 41.4 Events: Remains on high flow O2 at flow rate 40 LPM, FiO2 100% Taper O2 as tolerated Increased oxygen requirements. Head of bed elevation Aspiration precautions Continue heparin drip. Patient declined intubation at this time. On pressors (Levophed) for hemodynamic support Titrate to keep mean arterial pressure greater than 65 mmHg. Monitor respiratory status closely as may require intubation and mechanical ventilator. Labs and imaging reviewed. Rest of plan as noted below. Plan: Supplemental oxygen Titrate to keep O2 sats above 92%. Bronchodilators PRN. Antibiotics - Zosyn x1 Heparin drip. S/p thrombectomy by IR. PRN morphine for pain control Avoid oversedation Monitor renal function. Monitor electrolytes. Supplement as necessary. Monitor ins and outs. Diet and lifestyle modifications for weight reduction Morbid obesity - complicates all care DVT prophylaxis. Prognosis: Poor given patient's multiple co-morbidities. Condition: Critical Rest of plan per hospitalist and other consultants. A total of 35 minutes of critical care time was spent reviewing the patient record, examining the patient, making a diagnostic and therapeutic plan, discussing this plan with the medical personnel, following up on diagnostic studies and following the patient for clinical stability excluding any and all procedures. At least 50% of this time was spent in direct, [id number] contact. Thank you Ivanna Redd, MATTHIEU, for allowing me to participate in this patient's care. Further recommendations will depend on the patient's clinical course. Please do not hesitate to contact me if you have any questions or concerns. This medical document was created using an electronic medical record system with Spotsetter dictation system. Although these documentations are being carefully reviewed, there may still be some phonetic and typographical changes. The errors are purely typographical, due to imperfection on the software program, and do not reflect any compromise in the patient's medical care. Plan discussed with: Other (MERVIN Reveles) Critical Care Time(min): 35 CARON LACY MD Oct 18, 2024 19:39
[2024-10-18 20:44] LABS: INR 1.15 (0.9-1.15); Partial Thromboplastin Time 58.5 SEC (24.5-34.5); Prothrombin Time 12.1 sec (9.3-11.8)
--- NOTE | 2024-10-18 21:53 | DVHPN2 ---
Progress Note - Dictate Date Seen: Oct 18, 2024 Medical Necessity Reason Pt with a Central, PICC or Fol: Yes Subjective Patient was seen and evaluated in follow up in the ICU. Patient is complaining of left shoulder pain. Patient is on [place] O2 100% FiO2. Chest x-ray shows NAD. Prelim blood cultures showed no growth. 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 TROP 299. Echocardiogram shows mildly concentric left ventricular hypertrophy. There is moderately reduced right ventricular systolic function 40%. vital signs Vital Sign Date Time Temp Pulse Resp B/P (MAP) Pulse Ox O2 Delivery O2 Flow Rate FiO2 10/18/24 12:00 104 10/18/24 12:00 29 93 Hi-Flow NC 12 100 100 10/18/24 11:21 104/89 10/18/24 08:00 98.7 98.7 Total Intake and Output 10/17/24 10/17/24 10/18/24 15:00 23:00 07:00 Intake Total 20 ml 2496.25 ml Output Total 400 ml Balance 20 ml 2096.25 ml medications Current Medications Medications Dose Ordered Sig/Rafael Route Start Time Stop Time Status Last Admin Dose Admin Heparin Sodium/ Dextrose 250 ml @ 20 mls/hr [id number] IV 10/17/24 23:00 10/18/24 09:58 17 MLS/HR Nitroglycerin 0.4 mg Q5MINP PRN SL 10/17/24 17:00 10/17/24 22:26 0.4 MG Morphine Sulfate 2 mg Q30M PRN IV 10/17/24 17:00 10/17/24 22:36 2 MG Ondansetron HCl 4 mg Q6HPRN PRN IV 10/17/24 20:00 Acetaminophen 650 mg Q6HPRN PRN PO 10/17/24 20:00 Acetaminophen/ Hydrocodone Bitart 1 tab Q6HPRN PRN PO 10/17/24 20:00 Diagnostic Test (Pha) 1 strip ACHS 10/17/24 22:00 10/18/24 12:04 1 STRIP Insulin Human Regular ACHS SC 10/17/24 22:00 10/18/24 12:06 6 UNITS Dextrose 50 ml UD PRN IV 10/17/24 20:00 Sennosides 8.6 mg QHSP PRN PO 10/17/24 20:15 Norepinephrine Bitartrate 250 ml @ 3.75 mls/hr Q24H IV 10/18/24 02:30 10/18/24 07:33 30 MLS/HR Lorazepam 0.5 mg Q4HP PRN IV 10/18/24 08:15 objective GENERAL: Awake, alert, oriented. LUNGS: Clear. CARDIOVASCULAR: Heart sounds are good. ABDOMEN: Soft. laboratory and microbiology Laboratory Tests 10/18/24 03:20 Test 10/18/24 03:20 Range/Units Serum Glucose 210 H 74-106 mg/dL Problem List Bilateral pulmonary embolism. Status post thrombectomy. Shortness of breath. Acute kidney injury. Elevated troponin level. Assessment/Plan Continued all current supportive medical care. Morphine and [place] for pain management. Heparin drip per pharmacy protocol. Vasopressors for hemodynamic support. Additional plan as per the hospital course. Critical care time of 45 minutes provided to include time spent evaluation of patient at bedside, when appropriate patient/family education for diagnosis, treatment plan, review of pertinent medical information and discussion of care with specialty providers and PCP. Plan discussed with: Patient LYNNE FU MD Oct 18, 2024 13:53
[2024-10-19] VITALS (104 sets, daily range): BP systolic 88–148; BP diastolic 38–101; PULSE 81–104; RESP 16–34; TEMP 96.9–98.8; O2SAT 84–97
[2024-10-19 02:02] LABS: Hematocrit 45.5 % (41.0-53.0); Hemoglobin 14.9 g/dL (13.5-17.5); Mean Corpuscular Hemoglobin 30.8 pg (28.0-32.0); Mean Corpuscular Hgb Conc. 32.9 g/dL (32.0-36.0); Mean Corpuscular Volume 93.7 fL (80.0-100.0); Platelet Count (auto) 99 10^3/uL (140-450); Red Blood Cells 4.85 10^6/uL (4.5-5.90); Red Cell Distribution Width 14.6 % (11.8-14.3); White Blood Cell 13.1 10^3/uL (4.4-10.8)
[2024-10-19 02:10] LABS: Basophils % (manual) 0 (0.0-2.0); Blast Cells 0; Metamyelocytes % 0; Myelocytes % 0; Promyelocytes % 0; Reactive Lymphocytes 0
[2024-10-19 02:12] LABS: Chloride 111 mmol/L (98-107); Potassium 4.2 mmol/L (3.5-5.1); Sodium 141 mmol/L (136-145)
[2024-10-19 02:13] LABS: Anion Gap 10 (5-15); Calcium 9.1 mg/dL (8.7-10.4); Carbon Dioxide 20 mmol/L (20-31)
[2024-10-19 02:18] LABS: Glucose 167 mg/dL (74-106)
[2024-10-19 02:23] LABS: Blood Urea Nitrogen 35 mg/dL (9-23)
[2024-10-19 02:24] LABS: INR 1.16 (0.9-1.15); Partial Thromboplastin Time 57.8 SEC (24.5-34.5); Prothrombin Time 12.2 sec (9.3-11.8)
[2024-10-19 03:33] LABS: Band Neutrophils % (manual) 2; Eosinophils % (manual) 2 (0-7); Lymphocytes % (manual) 19 (10.0-50.0); Monocytes % (manual) 4 (0-12); Platelet Estimate Decreased; RBC Morphology Normal
--- NOTE | 2024-10-19 14:30 | DVHPN2 ---
Progress Note - Dictate Date Seen: Oct 19, 2024 Medical Necessity Reason Pt with a Central, PICC or Fol: Yes Subjective seen earlier this afternoon. Appears more comfortable from a respiratory perspective. Supplemental oxygen on high flow being down titrated.recorded urine volumes oliguric. vital signs Vital Sign Date Time Temp Pulse Resp B/P (MAP) Pulse Ox O2 Delivery O2 Flow Rate FiO2 10/19/24 12:30 91 19 119/93 (102) 91 10/19/24 12:00 Hi-Flow NC 12 70 70 10/19/24 12:00 98.5 98.5 Total Intake and Output 10/18/24 10/18/24 10/19/24 15:00 23:00 07:00 Intake Total 627.25 ml 946.0 ml 638.50 ml Output Total 600 ml 325 ml Balance 627.25 ml 346.0 ml 313.50 ml medications Current Medications Medications Dose Ordered Sig/Rafael Route Start Time Stop Time Status Last Admin Dose Admin Heparin Sodium/ Dextrose 250 ml @ 20 mls/hr [id number] IV 10/17/24 23:00 10/19/24 12:49 17 MLS/HR Nitroglycerin 0.4 mg Q5MINP PRN SL 10/17/24 17:00 10/17/24 22:26 0.4 MG Morphine Sulfate 2 mg Q30M PRN IV 10/17/24 17:00 10/17/24 22:36 2 MG Ondansetron HCl 4 mg Q6HPRN PRN IV 10/17/24 20:00 Acetaminophen 650 mg Q6HPRN PRN PO 10/17/24 20:00 Acetaminophen/ Hydrocodone Bitart 1 tab Q6HPRN PRN PO 10/17/24 20:00 Diagnostic Test (Pha) 1 strip ACHS 10/17/24 22:00 10/19/24 10:51 1 STRIP Insulin Human Regular ACHS SC 10/17/24 22:00 10/19/24 10:47 4 UNITS Dextrose 50 ml UD PRN IV 10/17/24 20:00 Sennosides 8.6 mg QHSP PRN PO 10/17/24 20:15 Norepinephrine Bitartrate 250 ml @ 3.75 mls/hr Q24H IV 10/18/24 02:30 10/18/24 07:33 30 MLS/HR Lorazepam 0.5 mg Q4HP PRN IV 10/18/24 08:15 objective gen: awake and alert lungs: occ ronchi cvs; no rub ext: trace edema laboratory and microbiology Laboratory Tests 10/19/24 01:50 Test 10/19/24 01:50 Range/Units Serum Glucose 167 H 74-106 mg/dL Assessment/Plan IMP: 1) Hemodynamically mediated and nephrotoxic ANTONIETTA - oliguric 2) saddle pulmonary embolism 3) acute hypoxemic respiratory failure 4) history of colon cancer 5) chronic kidney disease stage 3? REC: - metabolic parameters acceptable - we will continue to follow during time course of ANTONIETTA - Patient has expressed understanding regarding risk of further contrast nephropathy and Is agreeable to undergo any diagnostic and/or therapeutic intervention as clinically indicated. Plan discussed with: Patient EARNEST CAREY MD Oct 19, 2024 14:30
--- NOTE | 2024-10-19 15:35 | DVHPN2 ---
Subjective Patient feeling much better today, he ate his lunch he is on 40 L with 60% FiO2 on high-flow oxygen. Reviewed: Care Plan Changes from previous H/P or p: No Changes Objective Vitals Vital Signs Date Time Temp Pulse Resp B/P (MAP) Pulse Ox O2 Delivery O2 Flow Rate FiO2 10/19/24 14:15 93 26 104/80 (88) 90 10/19/24 14:00 Hi-Flow NC 12 70 70 10/19/24 12:00 98.5 98.5 Intake/Output Intake and Output 10/19/24 07:00 Intake Total 2211.75 ml Output Total 925 ml Balance 1286.75 ml Intake Oral 1230 ml IV Total 981.75 ml Output Urine Total 925 ml # Bowel Movements 2 Exam HEENT pupils are reactive Neck is supple CV is S1-S2 regular rhythm positive tachycardic with 100-110 Respiratory bilateral diminished breath sound bases GI posterior bowel sounds Extremities trace edema 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 no motor deficit Medications Current Medications Medications Dose Ordered Sig/Rafael Route Start Time Stop Time Status Last Admin Dose Admin Heparin Sodium/ Dextrose 250 ml @ 20 mls/hr [id number] IV 10/17/24 23:00 10/19/24 12:49 17 MLS/HR Nitroglycerin 0.4 mg Q5MINP PRN SL 10/17/24 17:00 10/17/24 22:26 0.4 MG Morphine Sulfate 2 mg Q30M PRN IV 10/17/24 17:00 10/17/24 22:36 2 MG Ondansetron HCl 4 mg Q6HPRN PRN IV 10/17/24 20:00 Acetaminophen 650 mg Q6HPRN PRN PO 10/17/24 20:00 Acetaminophen/ Hydrocodone Bitart 1 tab Q6HPRN PRN PO 10/17/24 20:00 Diagnostic Test (Pha) 1 strip ACHS 10/17/24 22:00 10/19/24 10:51 1 STRIP Insulin Human Regular ACHS SC 10/17/24 22:00 10/19/24 10:47 4 UNITS Dextrose 50 ml UD PRN IV 10/17/24 20:00 Sennosides 8.6 mg QHSP PRN PO 10/17/24 20:15 Norepinephrine Bitartrate 250 ml @ 3.75 mls/hr Q24H IV 10/18/24 02:30 10/18/24 07:33 30 MLS/HR Lorazepam 0.5 mg Q4HP PRN IV 10/18/24 08:15 Laboratory Results Laboratory Tests 10/19/24 01:50 Chemistry Test 10/19/24 01:50 Calcium Level 9.1 mg/dL (8.7-10.4) Coagulation Test 10/18/24 20:00 10/19/24 01:50 Prothrombin Time 12.1 sec (9.3-11.8) H 12.2 sec (9.3-11.8) H Prothrombin Time INR 1.15 (0.9-1.15) 1.16 (0.9-1.15) H Activated Partial Thromboplast Time 58.5 SEC (24.5-34.5) H 57.8 SEC (24.5-34.5) H Urinalysis Test 10/17/24 14:03 Urine Color Yellow (Yellow) Urine Clarity Clear (Clear) Urine pH 6.0 (5.0-9.0) Urine Specific [place] > 1.035 (1.001-1.035) Urine Protein 3+ (Negative) H Urine Ketones Negative (Negative) Urine Blood 1+ /uL (Negative) H Urine Nitrite Negative (Negative) Urine Bilirubin Negative (Negative) Urine Urobilinogen Normal mg/dL (Negative) Urine Leukocyte Esterase Negative /uL (Negative) Urine RBC 5 /hpf (0 - 3) Urine WBC 5 /hpf (0 - 3) Urine Squamous Epithelial Cells Few /hpf (<5) Urine Bacteria Few /hpf (None Seen) H Urine Hyaline Casts Few /lpf (0 - 2) Urine Mucus Few (None Seen) Urine Glucose Trace mg/dL (Normal) Microbiology Microbiology Date/Time Source Procedure Growth Status 10/17/24 18:00 Nose MRSA Screen - Final Complete 10/17/24 12:52 Blood Blood Culture - Preliminary NO GROWTH AFTER 48 HOURS OF INCUBATION. Resulted Assessment/Plan Assessment/Plan 54-year-old male with a known history of congestive heart failure, COPD, recent diagnosis of colon cancer status post [place] [facility] [place] the hospital with chest pain, worsening shortness of breath for last one day found to have 1. Acute hypoxic respiratory failure secondary to bilateral saddle pulmonary embolism currently on high-flow oxygen at 40 L with a FiO2 70% %, saturation more than 92% 2. Saddle bilateral pulmonary embolism status post mechanical thrombectomy of the right side, left-sided saddle PE 3. Acute kidney injury suspected secondary to vasomotor nephropathy 4. Acute congestive heart failure exacerbation unspecified, status post one dose of Lasix IV 5. Acute pulmonary artery hypertension suspect secondary to bilateral saddle PE 6. Right lower extremity DVT 7. Elevated troponin suspect demand ischemia secondary to acute pulmonary embolism -continue heparin drip, intervention Radiology consult for left-sided mechanical thrombectomy -patient remains critical, prognosis remain guarded -pulmonary , cardiology, Nephrology recommendation appreciated -plan of care discussed with the patient who understand, verbalized understanding and agreeable to plan, critical condition and guarded prognosis was explained to the patient. Plan discussed with: Patient Date of Service: Oct 19, 2024 Billing Provider: MAINOR ODEN MD Common Visit Codes: NOT BILLABLE MAINOR ODEN MD Oct 19, 2024 15:35
--- NOTE | 2024-10-19 21:17 | DVHPN2 ---
Progress Note - Dictate Date Seen: Oct 19, 2024 Medical Necessity Reason Pt with a Central, PICC or Fol: Yes Subjective Patient was seen and evaluated in follow up in the ICU. Patient is complaining of left shoulder pain. Patient is on Hi-Yonny oxygen. 70% FiO2. WBC 13.1, BUN 35, PROGRAM PARAPROFESSIONAL 1.84, TROP 250. MRSA is negative. vital signs Vital Sign Date Time Temp Pulse Resp B/P (MAP) Pulse Ox O2 Delivery O2 Flow Rate FiO2 10/19/24 12:30 91 19 119/93 (102) 91 10/19/24 12:00 Hi-Flow NC 12 70 70 10/19/24 12:00 98.5 98.5 Total Intake and Output 10/18/24 10/18/24 10/19/24 15:00 23:00 07:00 Intake Total 627.25 ml 946.0 ml 638.50 ml Output Total 600 ml 325 ml Balance 627.25 ml 346.0 ml 313.50 ml medications Current Medications Medications Dose Ordered Sig/Rafael Route Start Time Stop Time Status Last Admin Dose Admin Heparin Sodium/ Dextrose 250 ml @ 20 mls/hr [id number] IV 10/17/24 23:00 10/19/24 12:49 17 MLS/HR Nitroglycerin 0.4 mg Q5MINP PRN SL 10/17/24 17:00 10/17/24 22:26 0.4 MG Morphine Sulfate 2 mg Q30M PRN IV 10/17/24 17:00 10/17/24 22:36 2 MG Ondansetron HCl 4 mg Q6HPRN PRN IV 10/17/24 20:00 Acetaminophen 650 mg Q6HPRN PRN PO 10/17/24 20:00 Acetaminophen/ Hydrocodone Bitart 1 tab Q6HPRN PRN PO 10/17/24 20:00 Diagnostic Test (Pha) 1 strip ACHS 10/17/24 22:00 10/19/24 10:51 1 STRIP Insulin Human Regular ACHS SC 10/17/24 22:00 10/19/24 10:47 4 UNITS Dextrose 50 ml UD PRN IV 10/17/24 20:00 Sennosides 8.6 mg QHSP PRN PO 10/17/24 20:15 Norepinephrine Bitartrate 250 ml @ 3.75 mls/hr Q24H IV 10/18/24 02:30 10/18/24 07:33 30 MLS/HR Lorazepam 0.5 mg Q4HP PRN IV 10/18/24 08:15 objective GENERAL: Awake, alert, oriented. LUNGS: Clear. CARDIOVASCULAR: Heart sounds are good. ABDOMEN: Soft. laboratory and microbiology Laboratory Tests 10/19/24 01:50 Test 10/19/24 01:50 Range/Units Serum Glucose 167 H 74-106 mg/dL Problem List Bilateral pulmonary embolism. Status post thrombectomy. Shortness of breath. Acute kidney injury. Elevated troponin level. Assessment/Plan Continued all current supportive medical care. Morphine and [place] for pain management. Heparin drip per pharmacy protocol. Vasopressors for hemodynamic support. Additional plan as per the hospital course. Critical care time of 45 minutes provided to include time spent evaluation of patient at bedside, when appropriate patient/family education for diagnosis, treatment plan, review of pertinent medical information and discussion of care with specialty providers and PCP. Plan discussed with: Patient LYNNE FU MD Oct 19, 2024 13:34
--- NOTE | 2024-10-19 22:46 | DVHPN2 ---
Progress Note - Dictate Date Seen: Oct 19, 2024 Medical Necessity Reason Pt with a Central, PICC or Fol: No Subjective Patient seen and examined at bedside. Remains on supplemental oxygen Overnight events reviewed. vital signs Vital Sign Date Time Temp Pulse Resp B/P (MAP) Pulse Ox O2 Delivery O2 Flow Rate FiO2 10/19/24 22:30 85 25 109/84 (92) 90 10/19/24 22:27 40.0 70 10/19/24 22:00 Hi-Flow NC 10/19/24 20:00 98.4 98.4 Total Intake and Output 10/18/24 10/18/24 10/19/24 15:00 23:00 07:00 Intake Total 627.25 ml 946.0 ml 638.50 ml Output Total 600 ml 325 ml Balance 627.25 ml 346.0 ml 313.50 ml medications Current Medications Medications Dose Ordered Sig/Rafael Route Start Time Stop Time Status Last Admin Dose Admin Heparin Sodium/ Dextrose 250 ml @ 20 mls/hr [id number] IV 10/17/24 23:00 10/19/24 12:49 17 MLS/HR Nitroglycerin 0.4 mg Q5MINP PRN SL 10/17/24 17:00 10/17/24 22:26 0.4 MG Morphine Sulfate 2 mg Q30M PRN IV 10/17/24 17:00 10/17/24 22:36 2 MG Ondansetron HCl 4 mg Q6HPRN PRN IV 10/17/24 20:00 Acetaminophen 650 mg Q6HPRN PRN PO 10/17/24 20:00 Acetaminophen/ Hydrocodone Bitart 1 tab Q6HPRN PRN PO 10/17/24 20:00 Diagnostic Test (Pha) 1 strip ACHS 10/17/24 22:00 10/19/24 21:31 1 STRIP Insulin Human Regular ACHS SC 10/17/24 22:00 10/19/24 21:31 4 UNITS Dextrose 50 ml UD PRN IV 10/17/24 20:00 Sennosides 8.6 mg QHSP PRN PO 10/17/24 20:15 Norepinephrine Bitartrate 250 ml @ 3.75 mls/hr Q24H IV 10/18/24 02:30 10/18/24 07:33 30 MLS/HR Lorazepam 0.5 mg Q4HP PRN IV 10/18/24 08:15 objective Gen.: Patient lying in bed in no apparent distress. On supplemental oxygen. Head: Normocephalic, atraumatic. Eyes: EOMI/PERRLA. Ears: Normal hearing. Normal anatomy. Neck/trachea: Trachea midline, supple. Nose: Normal external anatomy. Mouth: Moist mucous membranes. Chest: Decreased air entry bilaterally. No wheezing or rhonchi. Cardiovascular: Positive S1, positive S2. Regular rate and rhythm. Abdomen: Positive bowel sounds in all 4 quadrants. Soft, non-tender, non- distended. : Deferred. Rectal: Deferred. Skin: Warm, dry. Intact. Extremities: 2+ radial pulses bilaterally. No lower extremity edema. Neuro: Awake, alert, oriented x3. No gross motor or sensory deficits. Cranial nerves II through XII intact. Gait not assessed. laboratory and microbiology Laboratory Tests 10/19/24 01:50 Test 10/19/24 01:50 Range/Units Serum Glucose 167 H 74-106 mg/dL Assessment/Plan Impression: Acute hypoxic respiratory failure Saddle pulmonary embolism DM type II Chronic obstructive pulmonary disease Congestive heart failure Colon cancer S/p hemicolectomy Morbid obesity, BMI 41.4 s/p Thrombectomy Events: Currently on high flow supplemental oxygen, FR 40 LPM, FiO2 70%. Taper FiO2 as tolerated Improving O2 requirements. Heart rate improved. On pressors this AM. Off Levophed since 4 AM. Leukocytosis, likely reactive. Platelets 99 k. Troponin trending down. Creatinine trending up. Monitor renal function. Continue antibiotics Blood cultures show no growth x48 hours Continue heparin drip for PE. Accu-Cheks, ISS. Labs and imaging reviewed. Rest of plan as noted below. Plan: Supplemental oxygen Titrate to keep O2 sats above 92%. Bronchodilators PRN. Antibiotics - Zosyn x1 Heparin drip. S/p thrombectomy by IR. PRN morphine for pain control Avoid oversedation Monitor renal function. Monitor electrolytes. Supplement as necessary. Monitor ins and outs. Diet and lifestyle modifications for weight reduction Morbid obesity - complicates all care DVT prophylaxis. Prognosis: Poor given patient's multiple co-morbidities. Condition: Critical Rest of plan per hospitalist and other consultants. A total of 35 minutes of critical care time was spent reviewing the patient record, examining the patient, making a diagnostic and therapeutic plan, discussing this plan with the medical personnel, following up on diagnostic studies and following the patient for clinical stability excluding any and all procedures. At least 50% of this time was spent in direct, [id number] contact. Thank you Ivanna Redd NP, for allowing me to participate in this patient's care. Further recommendations will depend on the patient's clinical course. Please do not hesitate to contact me if you have any questions or concerns. This medical document was created using an electronic medical record system with [employer] dictation system. Although these documentations are being carefully reviewed, there may still be some phonetic and typographical changes. The errors are purely typographical, due to imperfection on the software program, and do not reflect any compromise in the patient's medical care. Plan discussed with: Other (MERVIN Reveles) Critical Care Time(min): 35 CARON LACY MD Oct 19, 2024 22:46
[2024-10-20] VITALS (105 sets, daily range): BP systolic 86–137; BP diastolic 41–103; PULSE 67–99; RESP 13–36; TEMP 97.8–98.8; O2SAT 90–99
[2024-10-20 04:30] LABS: Basophils # (auto) 0.1 10 ^3/uL (0-0.2); Basophils % (auto) 0.5 % (0.0-2.0); Eosinophils # (auto) 0.3 10 ^3/uL (0-0.8); Eosinophils % (auto) 2.8 % (0.0-7.0); Hematocrit 45.1 % (41.0-53.0); Lymphocytes # (auto) 2.4 10 ^3/uL (0.4-5.4); Lymphocytes % (auto) 20.4 % (10.0-50.0); Mean Corpuscular Hemoglobin 31.2 pg (28.0-32.0); Mean Corpuscular Hgb Conc. 33.3 g/dL (32.0-36.0); Mean Corpuscular Volume 93.7 fL (80.0-100.0); Monocytes # (auto) 0.8 10 ^3/uL (0-1.3); Monocytes % (auto) 7.1 % (0.0-12.0); Neutrophils # (auto) 8.1 10 ^3/uL (1.6-8.6); Neutrophils % (auto) 69.2 % (37.0-80.0); Nucleated Red Blood Cells % 0.1 %; Platelet Count (auto) 98 10^3/uL (140-450); Red Blood Cells 4.81 10^6/uL (4.5-5.90); Red Cell Distribution Width 14.3 % (11.8-14.3); White Blood Cell 11.7 10^3/uL (4.4-10.8)
[2024-10-20 04:40] LABS: INR 1.19 (0.9-1.15); Partial Thromboplastin Time 52.1 SEC (24.5-34.5); Prothrombin Time 12.5 sec (9.3-11.8)
[2024-10-20 04:42] LABS: Anion Gap 11 (5-15); Carbon Dioxide 21 mmol/L (20-31); Chloride 110 mmol/L (98-107); Sodium 142 mmol/L (136-145)
[2024-10-20 04:43] LABS: Calcium 9.3 mg/dL (8.7-10.4)
[2024-10-20 04:48] LABS: BUN/Creatinine Ratio 22.2 (10.0-20.0); Blood Urea Nitrogen 35 mg/dL (9-23); Glucose 133 mg/dL (74-106)
[2024-10-20] MEDS: IOHEXOL 350 MG/ML 100ML IJ ONE (09:19)
[2024-10-20] MEDS ORDERED: CARV-214 PO (11:38)
[2024-10-20] MEDS ORDERED: GLIP10TA9 PO (11:38)
[2024-10-20] MEDS ORDERED: MONT-8 PO (11:38)
[2024-10-20] MEDS ORDERED: SACU1TAB4 PO (11:38)
[2024-10-20] MEDS ORDERED: SEMA7TAB2 PO (11:38)
[2024-10-20] MEDS ORDERED: METF-370 PO (11:38)
[2024-10-20] MEDS ORDERED: MYCO250C PO (12:36)
--- NOTE | 2024-10-20 14:12 | ECG ---
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
--- NOTE | 2024-10-20 15:34 | DVHPN2 ---
Progress Note Date Seen: Oct 20, 2024 Medical Necessity Reason Pt with a Central, PICC or Fol: No Subjective Patient reports: No new complaints Other Systems: Patient seen and examined by myself in follow-up today Objective vital signs Vital Sign Date Time Temp Pulse Resp B/P (MAP) Pulse Ox O2 Delivery O2 Flow Rate FiO2 10/20/24 14:55 83 20 95 40.0 50 10/20/24 10:25 Hi-Flow Heated NC+ 10/20/24 06:45 117/93 (101) 10/20/24 04:00 97.9 97.9 Total Intake and Output 10/19/24 10/19/24 10/20/24 15:00 23:00 07:00 Intake Total 136 ml 736 ml 480.6 ml Output Total 500 ml 550 ml Balance 136 ml 236 ml -69.4 ml medications Current Medications Medications Dose Ordered Sig/Rafael Route Start Time Stop Time Status Last Admin Dose Admin Nitroglycerin 0.4 mg Q5MINP PRN SL 10/17/24 17:00 10/17/24 22:26 0.4 MG Morphine Sulfate 2 mg Q30M PRN IV 10/17/24 17:00 10/17/24 22:36 2 MG Ondansetron HCl 4 mg Q6HPRN PRN IV 10/17/24 20:00 Acetaminophen 650 mg Q6HPRN PRN PO 10/17/24 20:00 Acetaminophen/ Hydrocodone Bitart 1 tab Q6HPRN PRN PO 10/17/24 20:00 Diagnostic Test (Pha) 1 strip ACHS 10/17/24 22:00 10/20/24 11:47 1 STRIP Insulin Human Regular ACHS SC 10/17/24 22:00 10/20/24 06:30 2 UNITS Dextrose 50 ml UD PRN IV 10/17/24 20:00 Sennosides 8.6 mg QHSP PRN PO 10/17/24 20:15 Norepinephrine Bitartrate 250 ml @ 3.75 mls/hr Q24H IV 10/18/24 02:30 10/18/24 07:33 30 MLS/HR Lorazepam 0.5 mg Q4HP PRN IV 10/18/24 08:15 Heparin Sodium/ Dextrose 250 ml @ 17 mls/hr [id number] IV 10/20/24 08:45 Examination: LUNGS:Normal (self in follow-up today), CVS:Normal, MSK:Normal laboratory and microbiology Laboratory Tests 10/20/24 03:12 Test 10/20/24 03:12 Range/Units Serum Glucose 133 H 74-106 mg/dL Microbiology Date/Time Source Procedure Growth Status 10/17/24 18:00 Nose MRSA Screen - Final Complete 10/17/24 12:52 Blood Blood Culture - Preliminary NO GROWTH AFTER 72 HOURS OF INCUBATION. Resulted Problem List/Assessment/Plan Problem List/Assessment/Plan Acute kidney injury superimposed Chronic Kidney Disease stage III secondary hemodynamic mediated, IV contrast Acute pulmonary embolism Acute hypoxemic respiratory failure history of colon cancer Obesity Recommendations Kidney function slightly improving Increased urine output Check urine protein excretion Check kidney ultrasound We will continue to follow Plan discussed with: Patient My Orders My Orders Orders - FABY ALVES MD Procedure Category Date Status Time Communication Order ORDERS 10/20/24 Transmitted 13:45 FABY ALVES MD Oct 20, 2024 15:34
--- NOTE | 2024-10-20 15:49 | DVHPN2 ---
Subjective Patient feeling much better today, he remains on high-flow oxygen but requirements are less as compared to yesterday or day before yesterday. More so he is feeling much better. Reviewed: Care Plan Changes from previous H/P or p: No Changes Objective Vitals Vital Signs Date Time Temp Pulse Resp B/P (MAP) Pulse Ox O2 Delivery O2 Flow Rate FiO2 10/20/24 14:55 83 20 95 40.0 50 10/20/24 10:25 Hi-Flow Heated NC+ 10/20/24 06:45 117/93 (101) 10/20/24 04:00 97.9 97.9 Intake/Output Intake and Output 10/20/24 07:00 Intake Total 1352.6 ml Output Total 1050 ml Balance 302.6 ml Intake Oral 950 ml IV Total 402.6 ml Output Urine Total 1050 ml # Bowel Movements 1 Exam HEENT pupils are reactive Neck is supple CV is S1-S2 regular rhythm positive tachycardic with 100-110 Respiratory bilateral diminished breath sound bases GI posterior bowel sounds 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 Medications Current Medications Medications Dose Ordered Sig/Rafael Route Start Time Stop Time Status Last Admin Dose Admin Nitroglycerin 0.4 mg Q5MINP PRN SL 10/17/24 17:00 10/17/24 22:26 0.4 MG Morphine Sulfate 2 mg Q30M PRN IV 10/17/24 17:00 10/17/24 22:36 2 MG Ondansetron HCl 4 mg Q6HPRN PRN IV 10/17/24 20:00 Acetaminophen 650 mg Q6HPRN PRN PO 10/17/24 20:00 Acetaminophen/ Hydrocodone Bitart 1 tab Q6HPRN PRN PO 10/17/24 20:00 Diagnostic Test (Pha) 1 strip ACHS 10/17/24 22:00 10/20/24 11:47 1 STRIP Insulin Human Regular ACHS SC 10/17/24 22:00 10/20/24 06:30 2 UNITS Dextrose 50 ml UD PRN IV 10/17/24 20:00 Sennosides 8.6 mg QHSP PRN PO 10/17/24 20:15 Norepinephrine Bitartrate 250 ml @ 3.75 mls/hr Q24H IV 10/18/24 02:30 10/18/24 07:33 30 MLS/HR Lorazepam 0.5 mg Q4HP PRN IV 10/18/24 08:15 Heparin Sodium/ Dextrose 250 ml @ 17 mls/hr [id number] IV 10/20/24 08:45 Laboratory Results Laboratory Tests 10/20/24 03:12 Chemistry Test 10/20/24 03:12 Calcium Level 9.3 mg/dL (8.7-10.4) Coagulation Test 10/20/24 03:12 Prothrombin Time 12.5 sec (9.3-11.8) H Prothrombin Time INR 1.19 (0.9-1.15) H Activated Partial Thromboplast Time 52.1 SEC (24.5-34.5) H Urinalysis Test 10/17/24 14:03 Urine Color Yellow (Yellow) Urine Clarity Clear (Clear) Urine pH 6.0 (5.0-9.0) Urine Specific [place] > 1.035 (1.001-1.035) Urine Protein 3+ (Negative) H Urine Ketones Negative (Negative) Urine Blood 1+ /uL (Negative) H Urine Nitrite Negative (Negative) Urine Bilirubin Negative (Negative) Urine Urobilinogen Normal mg/dL (Negative) Urine Leukocyte Esterase Negative /uL (Negative) Urine RBC 5 /hpf (0 - 3) Urine WBC 5 /hpf (0 - 3) Urine Squamous Epithelial Cells Few /hpf (<5) Urine Bacteria Few /hpf (None Seen) H Urine Hyaline Casts Few /lpf (0 - 2) Urine Mucus Few (None Seen) Urine Glucose Trace mg/dL (Normal) Microbiology Microbiology Date/Time Source Procedure Growth Status 10/17/24 18:00 Nose MRSA Screen - Final Complete 10/17/24 12:52 Blood Blood Culture - Preliminary NO GROWTH AFTER 72 HOURS OF INCUBATION. Resulted Assessment/Plan Assessment/Plan 54-year-old male with a known history of congestive heart failure, COPD, recent diagnosis of colon cancer status post partial colectomy on September 13 at [facility], patient presented to the hospital with chest pain, worsening shortness of breath for last one day found to have 1. Acute hypoxic respiratory failure secondary to bilateral saddle pulmonary embolism currently on high-flow oxygen at 40 L with a FiO2 70% %, saturation more than 92% 2. Saddle bilateral pulmonary embolism status post mechanical thrombectomy of the right side, no further intervention for now as per intervention Radiology regarding thrombectomy 3. Acute kidney injury suspected secondary to vasomotor nephropathy 4. Acute congestive heart failure exacerbation unspecified, status post one dose of Lasix IV 5. Acute pulmonary artery hypertension suspect secondary to bilateral saddle PE 6. Right lower extremity DVT 7. Elevated troponin suspect demand ischemia secondary to acute pulmonary embolism -continue heparin drip, as per intervention Radiology no repeat CT or any intervention upon -patient remains critical, prognosis remain guarded -pulmonary , cardiology, Nephrology recommendation appreciated -plan of care discussed with the patient who understand, verbalized understanding and agreeable to plan, critical condition and guarded prognosis was explained to the patient. Plan discussed with: Patient, Other My Orders Orders - MAINOR ODEN MD Procedure Category Date Status Time * Surgical Consult CONS 10/20/24 Transmitted 09:12 Date of Service: Oct 20, 2024 Billing Provider: MAINOR ODEN MD Common Visit Codes: NOT BILLABLE MAINOR ODEN MD Oct 20, 2024 15:49
--- NOTE | 2024-10-20 16:25 | DVH ---
Renal ultrasound HISTORY: elle TECHNIQUE: 2 D ultrasound was performed with transaxial and longitudinal images. FINDINGS: Right kidney measures 11.2 cm and left kidney measures 13.2 cm. No renal masses, stones or hydronephrosis. Urinary bladder unremarkable. IMPRESSION: 1. No evidence of acute obstruction. Mildly increased renal cortical echotexture consistent with chr onic renal disease
[2024-10-20] MEDS: HEPARIN DRIP/D5W 100UNITS/ML 250 ML IV SCH (16:43)
--- NOTE | 2024-10-20 17:57 | DVHPN2 ---
Progress Note - Dictate Date Seen: Oct 20, 2024 Medical Necessity Reason Pt with a Central, PICC or Fol: No Subjective Patient seen and examined at bedside. Remains on supplemental oxygen Overnight events reviewed. vital signs Vital Sign Date Time Temp Pulse Resp B/P (MAP) Pulse Ox O2 Delivery O2 Flow Rate FiO2 10/20/24 14:55 83 20 95 40.0 50 10/20/24 10:25 Hi-Flow Heated NC+ 10/20/24 06:45 117/93 (101) 10/20/24 04:00 97.9 97.9 Total Intake and Output 10/19/24 10/19/24 10/20/24 15:00 23:00 07:00 Intake Total 136 ml 736 ml 480.6 ml Output Total 500 ml 550 ml Balance 136 ml 236 ml -69.4 ml medications Current Medications Medications Dose Ordered Sig/Rafael Route Start Time Stop Time Status Last Admin Dose Admin Nitroglycerin 0.4 mg Q5MINP PRN SL 10/17/24 17:00 10/17/24 22:26 0.4 MG Morphine Sulfate 2 mg Q30M PRN IV 10/17/24 17:00 10/17/24 22:36 2 MG Ondansetron HCl 4 mg Q6HPRN PRN IV 10/17/24 20:00 Acetaminophen 650 mg Q6HPRN PRN PO 10/17/24 20:00 Acetaminophen/ Hydrocodone Bitart 1 tab Q6HPRN PRN PO 10/17/24 20:00 Diagnostic Test (Pha) 1 strip ACHS 10/17/24 22:00 10/20/24 17:38 1 STRIP Insulin Human Regular ACHS SC 10/17/24 22:00 10/20/24 17:42 3 UNITS Dextrose 50 ml UD PRN IV 10/17/24 20:00 Sennosides 8.6 mg QHSP PRN PO 10/17/24 20:15 Norepinephrine Bitartrate 250 ml @ 3.75 mls/hr Q24H IV 10/18/24 02:30 10/18/24 07:33 30 MLS/HR Lorazepam 0.5 mg Q4HP PRN IV 10/18/24 08:15 Heparin Sodium/ Dextrose 250 ml @ 17 mls/hr [id number] IV 10/20/24 08:45 10/20/24 16:43 17 MLS/HR objective Gen.: Patient lying in bed in no apparent distress. On supplemental oxygen. Head: Normocephalic, atraumatic. Eyes: EOMI/PERRLA. Ears: Normal hearing. Normal anatomy. Neck/trachea: Trachea midline, supple. Nose: Normal external anatomy. Mouth: Moist mucous membranes. Chest: Decreased air entry bilaterally. No wheezing or rhonchi. Cardiovascular: Positive S1, positive S2. Regular rate and rhythm. Abdomen: Positive bowel sounds in all 4 quadrants. Soft, non-tender, non- distended. : Deferred. Rectal: Deferred. Skin: Warm, dry. Intact. Extremities: 2+ radial pulses bilaterally. No lower extremity edema. Neuro: Awake, alert, oriented x3. No gross motor or sensory deficits. Cranial nerves II through XII intact. Gait not assessed. laboratory and microbiology Laboratory Tests 10/20/24 03:12 Test 10/20/24 03:12 Range/Units Serum Glucose 133 H 74-106 mg/dL Assessment/Plan Impression: Acute hypoxic respiratory failure Saddle pulmonary embolism DM type II Chronic obstructive pulmonary disease Congestive heart failure Colon cancer S/p hemicolectomy Morbid obesity, BMI 41.4 s/p Thrombectomy Events: On high flow supplemental oxygen, FR 40 LPM, FiO2 60%. Improving FiO2 requirements FiO2 improved from 70% to 60% - continue to taper as tolerated On pressors, hemodynamically stable. RR in 20s. WBC trending down. Platelets 98 k. Troponin trending down. Creatinine 1.58. Monitor renal function. Continue antibiotics Blood cultures show no growth x72 hours Continue heparin drip for PE. Accu-Cheks, ISS. Labs and imaging reviewed. Rest of plan as noted below. Plan: Supplemental oxygen Titrate to keep O2 sats above 92%. Bronchodilators PRN. Antibiotics - Zosyn x1 Heparin drip. S/p thrombectomy by IR. PRN morphine for pain control Avoid oversedation Monitor renal function. Monitor electrolytes. Supplement as necessary. Monitor ins and outs. Diet and lifestyle modifications for weight reduction Morbid obesity - complicates all care DVT prophylaxis. Prognosis: Poor given patient's multiple co-morbidities. Condition: Critical Rest of plan per hospitalist and other consultants. A total of 35 minutes of critical care time was spent reviewing the patient record, examining the patient, making a diagnostic and therapeutic plan, discussing this plan with the medical personnel, following up on diagnostic studies and following the patient for clinical stability excluding any and all procedures. At least 50% of this time was spent in direct, [id number] contact. Thank you Ivanna Redd NP, for allowing me to participate in this patient's care. Further recommendations will depend on the patient's clinical course. Please do not hesitate to contact me if you have any questions or concerns. This medical document was created using an electronic medical record system with [employer] dictation system. Although these documentations are being carefully reviewed, there may still be some phonetic and typographical changes. The errors are purely typographical, due to imperfection on the software program, and do not reflect any compromise in the patient's medical care. Plan discussed with: Other (MERVIN Carlisle) Critical Care Time(min): 35 CARON LACY MD Oct 20, 2024 17:56
[2024-10-20 18:50] LABS: Magnesium 2.3 mg/dL (1.6-2.6)
[2024-10-20 18:51] LABS: Phosphorus 2.9 mg/dL (2.4-5.1)
--- NOTE | 2024-10-20 18:58 | DVHPN2 ---
Progress Note - Dictate Date Seen: Oct 20, 2024 Medical Necessity Reason Pt with a Central, PICC or Fol: No Subjective Patient was seen and evaluated in follow up in the ICU. Patient remains on high flow oxygen, 40L, 50% FiO2. Patient reports feeling less SOB today. Renal US shows no evidence of acute obstruction, mildly increased renal cortical echotexture consistent with chronic renal disease. WBC 11.7. Patient remains on heparin drip. vital signs Vital Sign Date Time Temp Pulse Resp B/P (MAP) Pulse Ox O2 Delivery O2 Flow Rate FiO2 10/20/24 18:37 94 Oxymizer 6 N/A 10/20/24 14:55 83 20 10/20/24 06:45 117/93 (101) 10/20/24 04:00 97.9 97.9 Total Intake and Output 10/19/24 10/19/24 10/20/24 15:00 23:00 07:00 Intake Total 136 ml 736 ml 480.6 ml Output Total 500 ml 550 ml Balance 136 ml 236 ml -69.4 ml medications Current Medications Medications Dose Ordered Sig/Rafael Route Start Time Stop Time Status Last Admin Dose Admin Nitroglycerin 0.4 mg Q5MINP PRN SL 10/17/24 17:00 10/17/24 22:26 0.4 MG Morphine Sulfate 2 mg Q30M PRN IV 10/17/24 17:00 10/17/24 22:36 2 MG Ondansetron HCl 4 mg Q6HPRN PRN IV 10/17/24 20:00 Acetaminophen 650 mg Q6HPRN PRN PO 10/17/24 20:00 Acetaminophen/ Hydrocodone Bitart 1 tab Q6HPRN PRN PO 10/17/24 20:00 Diagnostic Test (Pha) 1 strip ACHS 10/17/24 22:00 10/20/24 17:38 1 STRIP Insulin Human Regular ACHS SC 10/17/24 22:00 10/20/24 17:42 3 UNITS Dextrose 50 ml UD PRN IV 10/17/24 20:00 Sennosides 8.6 mg QHSP PRN PO 10/17/24 20:15 Norepinephrine Bitartrate 250 ml @ 3.75 mls/hr Q24H IV 10/18/24 02:30 10/18/24 07:33 30 MLS/HR Lorazepam 0.5 mg Q4HP PRN IV 10/18/24 08:15 Heparin Sodium/ Dextrose 250 ml @ 17 mls/hr [id number] IV 10/20/24 08:45 10/20/24 16:43 17 MLS/HR objective GENERAL: Awake, alert, oriented. LUNGS: Clear. CARDIOVASCULAR: Heart sounds are good. ABDOMEN: Soft. laboratory and microbiology Laboratory Tests 10/20/24 03:12 Test 10/20/24 03:12 Range/Units Serum Glucose 133 H 74-106 mg/dL Problem List Bilateral pulmonary embolism. Status post thrombectomy. Shortness of breath. Acute kidney injury. Elevated troponin level. Assessment/Plan Continued all current supportive medical care. Morphine and [place] for pain management. Heparin drip per pharmacy protocol. Vasopressors for hemodynamic support. Additional plan as per the hospital course. Critical care time of 45 minutes provided to include time spent evaluation of patient at bedside, when appropriate patient/family education for diagnosis, treatment plan, review of pertinent medical information and discussion of care with specialty providers and PCP. Plan discussed with: Patient LYNNE FU MD Oct 20, 2024 18:58
[2024-10-20 20:29] LABS: Protein, Urine 49.1 mg/dL (1-14)
[2024-10-20 20:31] LABS: Creatinine, Urine 118.53 mg/dL (30.0-125.0); Urine Protein/Creatinine Ratio 0.41
[2024-10-21] VITALS (89 sets, daily range): BP systolic 97–141; BP diastolic 73–103; PULSE 61–129; RESP 15–40; TEMP 97.9–98.5; O2SAT 89–96
[2024-10-21 03:34] LABS: Basophils # (auto) 0.1 10 ^3/uL (0-0.2); Basophils % (auto) 0.6 % (0.0-2.0); Eosinophils # (auto) 0.3 10 ^3/uL (0-0.8); Eosinophils % (auto) 2.4 % (0.0-7.0); Hematocrit 44.6 % (41.0-53.0); Hemoglobin 14.5 g/dL (13.5-17.5); Lymphocytes # (auto) 1.8 10 ^3/uL (0.4-5.4); Lymphocytes % (auto) 16.5 % (10.0-50.0); Mean Corpuscular Hemoglobin 30.6 pg (28.0-32.0); Mean Corpuscular Hgb Conc. 32.5 g/dL (32.0-36.0); Mean Corpuscular Volume 94.3 fL (80.0-100.0); Monocytes # (auto) 0.8 10 ^3/uL (0-1.3); Monocytes % (auto) 7.5 % (0.0-12.0); Neutrophils # (auto) 8.2 10 ^3/uL (1.6-8.6); Nucleated Red Blood Cells % 0.1 %; Platelet Count (auto) 98 10^3/uL (140-450); Red Blood Cells 4.73 10^6/uL (4.5-5.90); Red Cell Distribution Width 14.5 % (11.8-14.3); White Blood Cell 11.2 10^3/uL (4.4-10.8)
[2024-10-21 03:46] LABS: Chloride 109 mmol/L (98-107); Potassium 4.3 mmol/L (3.5-5.1); Sodium 142 mmol/L (136-145)
[2024-10-21 03:47] LABS: Anion Gap 9 (5-15); Calcium 9.1 mg/dL (8.7-10.4); Carbon Dioxide 24 mmol/L (20-31)
[2024-10-21 03:49] LABS: INR 1.19 (0.9-1.15); Partial Thromboplastin Time 47.7 SEC (24.5-34.5); Prothrombin Time 12.5 sec (9.3-11.8)
[2024-10-21 03:52] LABS: Blood Urea Nitrogen 27 mg/dL (9-23); Glucose 143 mg/dL (74-106)
--- NOTE | 2024-10-21 10:07 | DVH ---
CLINICAL INFORMATION: 54 years old, Male; PE. TECHNIQUE: Single AP portable chest radiograph was obtained. COMPARISON: XY CHEST PORTABLE on DOS: 10/18/24, XY CHEST PORTABLE on DOS: 10/17/24 FINDINGS: Mild cardiomegaly and prominence of the pulmonary vasculature may be seen with pulmonary vascular con gestion in the appropriate clinical setting. Mild atelectasis in the lung bases. No focal consolidati on visualized. IMPRESSION: Findings consistent with pulmonary vascular congestion in the appropriate clinical setting as describ ed above. Correlate with clinical findings.
[2024-10-21 10:37] LABS: INR 1.16 (0.9-1.15); Partial Thromboplastin Time 56.1 SEC (24.5-34.5); Prothrombin Time 12.2 sec (9.3-11.8)
--- NOTE | 2024-10-21 10:39 | CONS ---
Pharmacy Clinical Information: From [facility] Heart Failure Fallout Report, Zoe Mock is a 54 year old male with PMH of COPD, HF, DM, HTN, and colon CA s/p colectomy. Patient is currently NPO for procedure. Consider initiating moderate intensity statin once patient is tolerating PO since 2018 blood cholesterol guidelines recommend for diabetic patients between the ages of 40 - 75. ANGELITA ORTIZ PHARMACIST Oct 21, 2024 10:39
--- NOTE | 2024-10-21 11:23 | ECG ---
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
--- NOTE | 2024-10-21 12:17 | ECG ---
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
--- NOTE | 2024-10-21 12:33 | DVHPN2 ---
Progress Note Date Seen: Oct 21, 2024 Medical Necessity Reason Pt with a Central, PICC or Fol: No Subjective Review of Systems: RESPIRATORY:Abnormal Other Systems: Patient seen and examined by myself on follow-up today Patient remained high flow nasal cannula Objective vital signs Vital Sign Date Time Temp Pulse Resp B/P (MAP) Pulse Ox O2 Delivery O2 Flow Rate FiO2 10/21/24 10:00 83 10/21/24 09:15 20 118/91 (100) 92 10/21/24 08:30 97.9 97.9 10/21/24 08:00 Oxymizer 5 N/A Total Intake and Output 10/20/24 10/20/24 10/21/24 15:00 23:00 07:00 Intake Total 136 ml 1032 ml 442 ml Output Total 0 ml 600 ml 600 ml Balance 136 ml 432 ml -158 ml medications Current Medications Medications Dose Ordered Sig/Rafael Route Start Time Stop Time Status Last Admin Dose Admin Nitroglycerin 0.4 mg Q5MINP PRN SL 10/17/24 17:00 10/17/24 22:26 0.4 MG Morphine Sulfate 2 mg Q30M PRN IV 10/17/24 17:00 10/17/24 22:36 2 MG Ondansetron HCl 4 mg Q6HPRN PRN IV 10/17/24 20:00 Acetaminophen 650 mg Q6HPRN PRN PO 10/17/24 20:00 Acetaminophen/ Hydrocodone Bitart 1 tab Q6HPRN PRN PO 10/17/24 20:00 Diagnostic Test (Pha) 1 strip ACHS 10/17/24 22:00 10/21/24 11:40 1 STRIP Insulin Human Regular ACHS SC 10/17/24 22:00 10/20/24 22:02 3 UNITS Dextrose 50 ml UD PRN IV 10/17/24 20:00 Sennosides 8.6 mg QHSP PRN PO 10/17/24 20:15 Norepinephrine Bitartrate 250 ml @ 3.75 mls/hr Q24H IV 10/18/24 02:30 10/18/24 07:33 30 MLS/HR Lorazepam 0.5 mg Q4HP PRN IV 10/18/24 08:15 Heparin Sodium/ Dextrose 250 ml @ 19 mls/hr [id number] IV 10/20/24 08:45 10/21/24 08:04 19 MLS/HR Ipratropium [place] 0.5 mg Q6HPRN PRN NEB 10/21/24 12:30 UNV Albuterol 2.5 mg Q6HWA NEB 10/21/24 12:30 UNV Examination: LUNGS:Normal, CVS:Normal, MSK:Normal laboratory and microbiology Laboratory Tests 10/21/24 03:10 Test 10/21/24 03:10 Range/Units Serum Glucose 143 H 74-106 mg/dL Microbiology Date/Time Source Procedure Growth Status 10/17/24 18:00 Nose MRSA Screen - Final Complete 10/17/24 12:52 Blood Blood Culture - Preliminary NO GROWTH AFTER 72 HOURS OF INCUBATION. Resulted Problem List/Assessment/Plan Problem List/Assessment/Plan Acute kidney injury superimposed Chronic Kidney Disease stage III secondary hemodynamic mediated, IV contrast, FeNa > 2% Acute pulmonary embolism Acute hypoxemic respiratory failure, O2 nasal Oxymizer history of colon cancer Obesity Recommendations Kidney function continues to improve Increased urine output Avoid further nephrotoxicity kidney ultrasound reported bilateral echogenic kidney, no obstruction We will continue to follow Plan discussed with: Patient My Orders My Orders Orders - FABY ALVES MD Procedure Category Date Status Time Kidney US 10/20/24 Resulted 15:34 Vitamin D, 25-Hydroxy LAB 10/20/24 In Process 15:34 Communication Order ORDERS 10/20/24 Transmitted 20:08 FABY ALVES MD Oct 21, 2024 12:33
[2024-10-21] MEDS: ALBUTEROL SULF 2.5 MG/0.5ML(0.5%) NEB SOLN NEB SCH (13:50)
[2024-10-21] MEDS: IPRATROPIUM BROM 0.5 MG/2.5ML INH SOL NEB PRN (13:51)
[2024-10-21] MEDS: IOHEXOL 350 MG/ML 100ML IJ ONE (15:06)
--- NOTE | 2024-10-21 15:50 | DVH ---
CTA Chest with intravenous contrast INDICATION: F/U THROMBECTOMY COMPARISON: CT CT ANGIO CHEST CONTRAST on DOS: 10/17/24 TECHNIQUE: Multidetector spiral CTA of the chest was performed of the chest with intravenous contrast . PULMONARY ANGIOGRAPHY PROTOCOL was utilized using a bolus-tracking technique centered on the main p ulmonary artery. Axial, coronal and sagittal multiplanar and MIP reformats were performed. CONTRAST: Type of contrast: Omni 350 Contrast injected: 100 ml Radiation dose : Chest: CTDI volume is 52 mGy. Dose-length product is 1113.38 mGy*cm The dose indicators for CT are the volume computed Tomography (CT) dose Index (CTDIvol) and the dose Length product (DLP), and are measured in units of mGy and mGy-cm, respectively. These indicators are not patient dose, but values generated from the CT scanner acquisition factors. The report includes radiation exposure data for exposures received during this examination. Findings: Pulmonary artery: Saddle thrombus has resolved. Bilateral pulmonary emboli involving the main pulmonary arteries and ex tending into segmental branches similar to prior. Large amount of clot burden. Evidence of right hear t strain. Lower neck: Normal thyroid. Lungs: No focal consolidation, pleural effusion or pneumothorax. Heart/Vascular Structures: No pericardial effusion. Lymph Nodes: No adenopathy Pleura: No pleural effusion or significant pneumothorax. Musculoskeletal: No acute osseous abnormality. Soft tissues: Likely sebaceous cyst in the right back again noted. Upper abdomen: Fatty right adrenal nodule. Few hepatic cysts. Trace perihepatic ascites. IMPRESSION: 1. Slight interval improvement. Still persistent large amount of thrombus with evidence of right hea rt strain. Clinical correlation and continued follow-up is recommended. 2. No other acute thoracic finding. Fatty right adrenal nodule, likely myelolipoma. Hepatic cysts. T race hepatic ascites. HS:Y
[2024-10-21] MEDS: FUROSEMIDE 100 MG/10ML VIAL IV ONE (16:46)
[2024-10-21 17:06] LABS: INR 1.23 (0.9-1.15); Partial Thromboplastin Time 44.9 SEC (24.5-34.5); Prothrombin Time 12.8 sec (9.3-11.8)
--- NOTE | 2024-10-21 17:54 | DVHPN2 ---
Subjective Patient was feeling much better today her PET-CT angio shows still some heart strain and thrombus burden but saddle clot has been resolved Reviewed: Care Plan Changes from previous H/P or p: No Changes Objective Vitals Vital Signs Date Time Temp Pulse Resp B/P (MAP) Pulse Ox O2 Delivery O2 Flow Rate FiO2 10/21/24 16:46 107/77 10/21/24 16:45 104 26 94 10/21/24 16:00 Oxymizer 5 N/A 10/21/24 08:30 97.9 97.9 Intake/Output Intake and Output 10/21/24 07:00 Intake Total 1629 ml Output Total 1200 ml Balance 429 ml Intake Oral 1179 ml IV Total 450 ml Output Urine Total 1200 ml Stool Total 0 ml # Bowel Movements 1 Exam HEENT pupils are reactive Neck is supple CV is S1-S2 regular rhythm positive tachycardic with 100-110 Respiratory bilateral diminished breath sound bases GI posterior bowel sounds Extremities trace edema FUR NAILER no motor deficit Medications Current Medications Medications Dose Ordered Sig/Rafael Route Start Time Stop Time Status Last Admin Dose Admin Nitroglycerin 0.4 mg Q5MINP PRN SL 10/17/24 17:00 10/17/24 22:26 0.4 MG Morphine Sulfate 2 mg Q30M PRN IV 10/17/24 17:00 10/17/24 22:36 2 MG Ondansetron HCl 4 mg Q6HPRN PRN IV 10/17/24 20:00 Acetaminophen 650 mg Q6HPRN PRN PO 10/17/24 20:00 Acetaminophen/ Hydrocodone Bitart 1 tab Q6HPRN PRN PO 10/17/24 20:00 Diagnostic Test (Pha) 1 strip ACHS 10/17/24 22:00 10/21/24 16:58 1 STRIP Insulin Human Regular ACHS SC 10/17/24 22:00 10/21/24 17:03 3 UNITS Dextrose 50 ml UD PRN IV 10/17/24 20:00 Sennosides 8.6 mg QHSP PRN PO 10/17/24 20:15 Norepinephrine Bitartrate 250 ml @ 3.75 mls/hr Q24H IV 10/18/24 02:30 10/18/24 07:33 30 MLS/HR Lorazepam 0.5 mg Q4HP PRN IV 10/18/24 08:15 Ipratropium [place] 0.5 mg Q6HPRN PRN [facility] 10/21/24 12:30 10/21/24 13:51 0.5 MG Albuterol 2.5 mg Q6HWA [facility] 10/21/24 12:30 10/21/24 13:50 2.5 MG Heparin Sodium/ Dextrose 250 ml @ 21 mls/hr [id number] IV 10/21/24 17:30 Laboratory Results Laboratory Tests 10/21/24 03:10 Chemistry Test 10/20/24 17:59 10/21/24 03:10 Magnesium Level 2.3 mg/dL (1.6-2.6) Phosphorus Level 2.9 mg/dL (2.4-5.1) Calcium Level 9.1 mg/dL (8.7-10.4) Coagulation Test 10/21/24 03:10 10/21/24 10:00 10/21/24 16:17 Prothrombin Time 12.5 sec (9.3-11.8) H 12.2 sec (9.3-11.8) H 12.8 sec (9.3-11.8) H Prothrombin Time INR 1.19 (0.9-1.15) H 1.16 (0.9-1.15) H 1.23 (0.9-1.15) H Activated Partial Thromboplast Time 47.7 SEC (24.5-34.5) H 56.1 SEC (24.5-34.5) H 44.9 SEC (24.5-34.5) H Urinalysis Test 10/17/24 14:03 10/20/24 19:30 Urine Color Yellow (Yellow) Urine Clarity Clear (Clear) Urine pH 6.0 (5.0-9.0) Urine Specific [place] > 1.035 (1.001-1.035) Urine Protein 3+ (Negative) H Urine Ketones Negative (Negative) Urine Blood 1+ /uL (Negative) H Urine Nitrite Negative (Negative) Urine Bilirubin Negative (Negative) Urine Urobilinogen Normal mg/dL (Negative) Urine Leukocyte Esterase Negative /uL (Negative) Urine RBC 5 /hpf (0 - 3) Urine WBC 5 /hpf (0 - 3) Urine Squamous Epithelial Cells Few /hpf (<5) Urine Bacteria Few /hpf (None Seen) H Urine Hyaline Casts Few /lpf (0 - 2) Urine Mucus Few (None Seen) Urine Glucose Trace mg/dL (Normal) Urine Creatinine 118.53 mg/dL (30.0-125.0) Urine Protein/Creatinine Ratio 0.41 Urine Sodium 101 mmol/L (40-220) Urine Total Protein 49.1 mg/dL (1-14) H Microbiology Microbiology Date/Time Source Procedure Growth Status 10/17/24 18:00 Nose MRSA Screen - Final Complete 10/17/24 12:52 Blood Blood Culture - Preliminary NO GROWTH AFTER 72 HOURS OF INCUBATION. Resulted Assessment/Plan Assessment/Plan 54-year-old male with a known history of congestive heart failure, COPD, recent diagnosis of colon cancer status post partial colectomy on September 13 at [facility], patient presented to the hospital with chest pain, worsening shortness of breath for last one day found to have 1. Acute hypoxic respiratory failure secondary to bilateral saddle pulmonary embolism currently on high-flow oxygen at 40 L with a FiO2 70% %, saturation more than 92% 2. Saddle bilateral pulmonary embolism status post mechanical thrombectomy of the right side, no further intervention for now as per intervention Radiology regarding thrombectomy 3. Acute kidney injury suspected secondary to vasomotor nephropathy 4. Acute congestive heart failure exacerbation unspecified, status post one dose of Lasix IV 5. Acute pulmonary artery hypertension suspect secondary to bilateral saddle PE 6. Right lower extremity DVT 7. Elevated troponin suspect demand ischemia secondary to acute pulmonary embolism -continue heparin drip, repeat CT angio shows lot of clot burden and right heart strain but no saddle PE -patient remains critical, prognosis remain guarded -pulmonary , cardiology, Nephrology recommendation appreciated -plan of care discussed with the patient who understand, verbalized understanding and agreeable to plan, critical condition and guarded prognosis was explained to the patient. Plan discussed with: Patient, Other My Orders Orders - MAINOR ODEN MD Procedure Category Date Status Time Chest Portable XY 10/21/24 Resulted 08:41 Date of Service: Oct 21, 2024 Billing Provider: MAINOR ODEN MD Common Visit Codes: NOT BILLABLE MAINOR ODEN MD Oct 21, 2024 17:54
--- NOTE | 2024-10-21 20:42 | DVHPN2 ---
Progress Note - Dictate Date Seen: Oct 21, 2024 Medical Necessity Reason Pt with a Central, PICC or Fol: No Subjective Patient seen and examined at bedside. Remains on supplemental oxygen Overnight events reviewed. vital signs Vital Sign Date Time Temp Pulse Resp B/P (MAP) Pulse Ox O2 Delivery O2 Flow Rate FiO2 10/21/24 19:45 119 21 115/91 (99) 94 10/21/24 18:41 Oxymizer 4 N/A 10/21/24 08:30 97.9 97.9 Total Intake and Output 10/20/24 10/20/24 10/21/24 14:59 22:59 06:59 Intake Total 136 ml 1032 ml 440 ml Output Total 0 ml 600 ml 600 ml Balance 136 ml 432 ml -160 ml medications Current Medications Medications Dose Ordered Sig/Rafael Route Start Time Stop Time Status Last Admin Dose Admin Nitroglycerin 0.4 mg Q5MINP PRN SL 10/17/24 17:00 10/17/24 22:26 0.4 MG Morphine Sulfate 2 mg Q30M PRN IV 10/17/24 17:00 10/17/24 22:36 2 MG Ondansetron HCl 4 mg Q6HPRN PRN IV 10/17/24 20:00 Acetaminophen 650 mg Q6HPRN PRN PO 10/17/24 20:00 Acetaminophen/ Hydrocodone Bitart 1 tab Q6HPRN PRN PO 10/17/24 20:00 Diagnostic Test (Pha) 1 strip ACHS 10/17/24 22:00 10/21/24 16:58 1 STRIP Insulin Human Regular ACHS SC 10/17/24 22:00 10/21/24 17:03 3 UNITS Dextrose 50 ml UD PRN IV 10/17/24 20:00 Sennosides 8.6 mg QHSP PRN PO 10/17/24 20:15 Norepinephrine Bitartrate 250 ml @ 3.75 mls/hr Q24H IV 10/18/24 02:30 10/18/24 07:33 30 MLS/HR Lorazepam 0.5 mg Q4HP PRN IV 10/18/24 08:15 Ipratropium [place] 0.5 mg Q6HPRN PRN NEB 10/21/24 12:30 10/21/24 18:41 0.5 MG Albuterol 2.5 mg Q6HWA NEB 10/21/24 12:30 10/21/24 18:41 2.5 MG Heparin Sodium/ Dextrose 250 ml @ 21 mls/hr [id number] IV 10/21/24 17:30 objective Gen.: Patient lying in bed in no apparent distress. On supplemental oxygen. Head: Normocephalic, atraumatic. Eyes: EOMI/PERRLA. Ears: Normal hearing. Normal anatomy. Neck/trachea: Trachea midline, supple. Nose: Normal external anatomy. Mouth: Moist mucous membranes. Chest: Decreased air entry bilaterally. No wheezing or rhonchi. Cardiovascular: Positive S1, positive S2. Regular rate and rhythm. Abdomen: Positive bowel sounds in all 4 quadrants. Soft, non-tender, non- distended. : Deferred. Rectal: Deferred. Skin: Warm, dry. Intact. Extremities: 2+ radial pulses bilaterally. No lower extremity edema. Neuro: Awake, alert, oriented x3. No gross motor or sensory deficits. Cranial nerves II through XII intact. Gait not assessed. laboratory and microbiology Laboratory Tests 10/21/24 03:10 Test 10/21/24 03:10 Range/Units Serum Glucose 143 H 74-106 mg/dL Assessment/Plan Impression: Acute hypoxic respiratory failure Saddle pulmonary embolism DM type II Chronic obstructive pulmonary disease Congestive heart failure Colon cancer S/p hemicolectomy Morbid obesity, BMI 41.4 s/p Thrombectomy Events: Improved O2 requirements Down from high flow O2 to 4 LPM Oxymizer. Continue to taper as tolerated Continue heparin drip for PE. Incentive spirometry. Obtain CTA chest to evaluate for pulmonary embolism. WBC trending down. Platelets 98 k. Improved BUN and creatinine. Accu-Cheks, ISS. Labs and imaging reviewed. Rest of plan as noted below. Plan: Supplemental oxygen Titrate to keep O2 sats above 92%. Bronchodilators PRN. Antibiotics - Zosyn x1 Heparin drip. S/p thrombectomy by IR. PRN morphine for pain control Avoid oversedation Monitor renal function. Monitor electrolytes. Supplement as necessary. Monitor ins and outs. Diet and lifestyle modifications for weight reduction Morbid obesity - complicates all care DVT prophylaxis. Prognosis: Poor given patient's multiple co-morbidities. Condition: Critical Rest of plan per hospitalist and other consultants. A total of 35 minutes of critical care time was spent reviewing the patient record, examining the patient, making a diagnostic and therapeutic plan, discussing this plan with the medical personnel, following up on diagnostic studies and following the patient for clinical stability excluding any and all procedures. At least 50% of this time was spent in direct, [id number] contact. Thank you Ivanna Redd NP, for allowing me to participate in this patient's care. Further recommendations will depend on the patient's clinical course. Please do not hesitate to contact me if you have any questions or concerns. This medical document was created using an electronic medical record system with [employer] dictation system. Although these documentations are being carefully reviewed, there may still be some phonetic and typographical changes. The errors are purely typographical, due to imperfection on the software program, and do not reflect any compromise in the patient's medical care. Dietary Evaluation Review Comments: Continue current plan of care Expected Outcomes/Goals: F/U in 3-5 days Plan discussed with: Other (MERVIN Ratliff) Critical Care Time(min): 35 CARON LACY MD Oct 21, 2024 20:42
[2024-10-21] MEDS: HEPARIN DRIP/D5W 100UNITS/ML 250 ML IV SCH (21:25)
--- NOTE | 2024-10-21 23:00 | DVHPN2 ---
Progress Note - Dictate Date Seen: Oct 21, 2024 Medical Necessity Reason Pt with a Central, PICC or Fol: No Subjective Patient was seen and evaluated in follow up in the ICU. Patient is on 6 L oxymizer. The patient reports improvement in SOB. Patient remains on heparin drip. WBC 11.2, BUN 27, [employer] 1.35. CTA chest shows slight interval improvement. Still persistent large amount of thrombus with evidence of right heart strain. No other acute thoracic finding. Fatty right adrenal nodule, likely myelolipoma. Hepatic cysts. Trace hepatic ascites. vital signs Vital Sign Date Time Temp Pulse Resp B/P (MAP) Pulse Ox O2 Delivery O2 Flow Rate FiO2 10/21/24 20:00 26 92 Oxymizer 6 N/A 10/21/24 19:45 119 115/91 (99) 10/21/24 08:30 97.9 97.9 Total Intake and Output 10/20/24 10/20/24 10/21/24 15:00 23:00 07:00 Intake Total 136 ml 1032 ml 461 ml Output Total 0 ml 600 ml 600 ml Balance 136 ml 432 ml -139 ml medications Current Medications Medications Dose Ordered Sig/Rafael Route Start Time Stop Time Status Last Admin Dose Admin Nitroglycerin 0.4 mg Q5MINP PRN SL 10/17/24 17:00 10/17/24 22:26 0.4 MG Morphine Sulfate 2 mg Q30M PRN IV 10/17/24 17:00 10/17/24 22:36 2 MG Ondansetron HCl 4 mg Q6HPRN PRN IV 10/17/24 20:00 Acetaminophen 650 mg Q6HPRN PRN PO 10/17/24 20:00 Acetaminophen/ Hydrocodone Bitart 1 tab Q6HPRN PRN PO 10/17/24 20:00 Diagnostic Test (Pha) 1 strip ACHS 10/17/24 22:00 10/21/24 21:50 1 STRIP Insulin Human Regular ACHS SC 10/17/24 22:00 10/21/24 21:56 4 UNITS Dextrose 50 ml UD PRN IV 10/17/24 20:00 Sennosides 8.6 mg QHSP PRN PO 10/17/24 20:15 Norepinephrine Bitartrate 250 ml @ 3.75 mls/hr Q24H IV 10/18/24 02:30 10/18/24 07:33 30 MLS/HR Lorazepam 0.5 mg Q4HP PRN IV 10/18/24 08:15 Ipratropium [place] 0.5 mg Q6HPRN PRN NEB 10/21/24 12:30 10/21/24 18:41 0.5 MG Albuterol 2.5 mg Q6HWA NEB 10/21/24 12:30 10/21/24 18:41 2.5 MG Heparin Sodium/ Dextrose 250 ml @ 21 mls/hr [id number] IV 10/21/24 17:30 10/21/24 21:25 21 MLS/HR objective GENERAL: Awake, alert, oriented. LUNGS: Clear. CARDIOVASCULAR: Heart sounds are good. ABDOMEN: Soft. laboratory and microbiology Laboratory Tests 10/21/24 03:10 Test 10/21/24 03:10 Range/Units Serum Glucose 143 H 74-106 mg/dL Problem List Bilateral pulmonary embolism. Status post thrombectomy. Shortness of breath. Acute kidney injury. Elevated troponin level. Assessment/Plan Continued all current supportive medical care. Morphine and [employer] for pain management. Heparin drip per pharmacy protocol. Diuretics with Lasix. Vasopressors for hemodynamic support. Additional plan as per the hospital course. Critical care time of 45 minutes provided to include time spent evaluation of patient at bedside, when appropriate patient/family education for diagnosis, treatment plan, review of pertinent medical information and discussion of care with specialty providers and PCP. Dietary Evaluation Review Comments: Continue current plan of care Expected Outcomes/Goals: F/U in 3-5 days Plan discussed with: Patient LYNNE FU MD Oct 21, 2024 23:00
[2024-10-22] VITALS (73 sets, daily range): BP systolic 100–136; BP diastolic 65–98; PULSE 69–108; RESP 12–29; TEMP 97.9–98.6; O2SAT 91–97
[2024-10-22 04:07] LABS: Basophils # (auto) 0 10 ^3/uL (0-0.2); Basophils % (auto) 0.4 % (0.0-2.0); Eosinophils # (auto) 0.2 10 ^3/uL (0-0.8); Eosinophils % (auto) 1.6 % (0.0-7.0); Hematocrit 46.2 % (41.0-53.0); Hemoglobin 15.4 g/dL (13.5-17.5); Lymphocytes # (auto) 1.7 10 ^3/uL (0.4-5.4); Lymphocytes % (auto) 16.6 % (10.0-50.0); Mean Corpuscular Hemoglobin 31.1 pg (28.0-32.0); Mean Corpuscular Hgb Conc. 33.3 g/dL (32.0-36.0); Mean Corpuscular Volume 93.3 fL (80.0-100.0); Monocytes # (auto) 0.8 10 ^3/uL (0-1.3); Monocytes % (auto) 7.9 % (0.0-12.0); Neutrophils # (auto) 7.4 10 ^3/uL (1.6-8.6); Neutrophils % (auto) 73.5 % (37.0-80.0); Nucleated Red Blood Cells % 0.1 %; Platelet Count (auto) 91 10^3/uL (140-450); Red Blood Cells 4.95 10^6/uL (4.5-5.90); Red Cell Distribution Width 14.2 % (11.8-14.3); White Blood Cell 10.1 10^3/uL (4.4-10.8)
[2024-10-22 04:12] LABS: Chloride 108 mmol/L (98-107); Potassium 3.8 mmol/L (3.5-5.1); Sodium 142 mmol/L (136-145)
[2024-10-22 04:13] LABS: Anion Gap 10 (5-15); Calcium 9.6 mg/dL (8.7-10.4); Carbon Dioxide 24 mmol/L (20-31)
[2024-10-22 04:18] LABS: BUN/Creatinine Ratio 19.3 (10.0-20.0); Blood Urea Nitrogen 26 mg/dL (9-23); Glucose 138 mg/dL (74-106)
[2024-10-22 05:36] LABS: INR 1.18 (0.9-1.15); Partial Thromboplastin Time 63.1 SEC (24.5-34.5); Prothrombin Time 12.4 sec (9.3-11.8)
--- NOTE | 2024-10-22 09:38 | DVHPN2 ---
Progress Note Date Seen: Oct 22, 2024 Medical Necessity Reason Pt with a Central, PICC or Fol: No Subjective Patient reports: No new complaints Other Systems: Patient seen and examined by myself on follow-up today Objective vital signs Vital Sign Date Time Temp Pulse Resp B/P (MAP) Pulse Ox O2 Delivery O2 Flow Rate FiO2 10/22/24 08:30 95 21 131/96 (108) 95 10/22/24 08:00 Oxymizer 6 N/A 10/22/24 07:45 97.9 97.9 Total Intake and Output 10/21/24 10/21/24 10/22/24 15:00 23:00 07:00 Intake Total 152 ml 580 ml 2119 ml Output Total 1350 ml 4350 ml Balance 152 ml -770 ml -2231 ml medications Current Medications Medications Dose Ordered Sig/Rafael Route Start Time Stop Time Status Last Admin Dose Admin Nitroglycerin 0.4 mg Q5MINP PRN SL 10/17/24 17:00 10/17/24 22:26 0.4 MG Morphine Sulfate 2 mg Q30M PRN IV 10/17/24 17:00 10/17/24 22:36 2 MG Ondansetron HCl 4 mg Q6HPRN PRN IV 10/17/24 20:00 Acetaminophen 650 mg Q6HPRN PRN PO 10/17/24 20:00 Acetaminophen/ Hydrocodone Bitart 1 tab Q6HPRN PRN PO 10/17/24 20:00 Diagnostic Test (Pha) 1 strip ACHS 10/17/24 22:00 10/22/24 06:30 1 STRIP Insulin Human Regular ACHS SC 10/17/24 22:00 10/22/24 06:39 3 UNITS Dextrose 50 ml UD PRN IV 10/17/24 20:00 Sennosides 8.6 mg QHSP PRN PO 10/17/24 20:15 Norepinephrine Bitartrate 250 ml @ 3.75 mls/hr Q24H IV 10/18/24 02:30 10/18/24 07:33 30 MLS/HR Lorazepam 0.5 mg Q4HP PRN IV 10/18/24 08:15 Ipratropium [place] 0.5 mg Q6HPRN PRN NEB 10/21/24 12:30 10/22/24 06:17 0.5 MG Albuterol 2.5 mg Q6HWA NEB 10/21/24 12:30 10/22/24 06:20 2.5 MG Heparin Sodium/ Dextrose 250 ml @ 21 mls/hr [id number] IV 10/21/24 17:30 10/22/24 05:25 21 MLS/HR Examination: LUNGS:Normal, CVS:Normal, MSK:Normal laboratory and microbiology Laboratory Tests 10/22/24 03:12 Test 10/22/24 03:12 Range/Units Serum Glucose 138 H 74-106 mg/dL Microbiology Date/Time Source Procedure Growth Status 10/17/24 18:00 Nose MRSA Screen - Final Complete 10/17/24 12:52 Blood Blood Culture - Preliminary NO GROWTH AFTER 72 HOURS OF INCUBATION. Resulted Problem List/Assessment/Plan Problem List/Assessment/Plan Acute kidney injury superimposed Chronic Kidney Disease stage III secondary hemodynamic mediated, IV contrast, FeNa > 2% Acute pulmonary embolism Acute hypoxemic respiratory failure, O2 nasal Oxymizer history of colon cancer Obesity Recommendations Kidney function continues to improve Increased urine output Avoid further nephrotoxicity kidney ultrasound reported bilateral echogenic kidney, no obstruction I will sign off this case, please reconsult as needed Thank you for the consult Plan discussed with: Patient Dietary Evaluation Review Comments: Continue current plan of care Expected Outcomes/Goals: F/U in 3-5 days FABY ALVES MD Oct 22, 2024 09:38
--- NOTE | 2024-10-22 13:19 | DVHPN2 ---
Subjective Patient was a CTA was reviewed which shows still clot burden in the left main pulmonary artery. Patient told me that he was scheduled for procedure today, feeling much better currently on 4 L of new Oxymizer. Reviewed: Care Plan Changes from previous H/P or p: No Changes Objective Vitals Vital Signs Date Time Temp Pulse Resp B/P (MAP) Pulse Ox O2 Delivery O2 Flow Rate FiO2 10/22/24 12:05 89 18 97 10/22/24 12:00 Oxymizer 6 N/A 10/22/24 10:00 128/89 (102) 10/22/24 07:45 97.9 97.9 Intake/Output Intake and Output 10/22/24 07:00 Intake Total 2872 ml Output Total 5700 ml Balance -2828 ml Intake Oral 830 ml IV Total 530 ml Other 1512 ml Output Urine Total 5700 ml Exam HEENT pupils are reactive Neck is supple CV is S1-S2 regular rhythm positive tachycardic with 100-110 Respiratory bilateral diminished breath sound bases GI posterior bowel sounds 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 Medications Current Medications Medications Dose Ordered Sig/Rafael Route Start Time Stop Time Status Last Admin Dose Admin Nitroglycerin 0.4 mg Q5MINP PRN SL 10/17/24 17:00 10/17/24 22:26 0.4 MG Morphine Sulfate 2 mg Q30M PRN IV 10/17/24 17:00 10/17/24 22:36 2 MG Ondansetron HCl 4 mg Q6HPRN PRN IV 10/17/24 20:00 Acetaminophen 650 mg Q6HPRN PRN PO 10/17/24 20:00 Acetaminophen/ Hydrocodone Bitart 1 tab Q6HPRN PRN PO 10/17/24 20:00 Diagnostic Test (Pha) 1 strip ACHS 10/17/24 22:00 10/22/24 11:14 1 STRIP Insulin Human Regular ACHS SC 10/17/24 22:00 10/22/24 06:39 3 UNITS Dextrose 50 ml UD PRN IV 10/17/24 20:00 Sennosides 8.6 mg QHSP PRN PO 10/17/24 20:15 Norepinephrine Bitartrate 250 ml @ 3.75 mls/hr Q24H IV 10/18/24 02:30 10/18/24 07:33 30 MLS/HR Lorazepam 0.5 mg Q4HP PRN IV 10/18/24 08:15 Ipratropium [place] 0.5 mg Q6HPRN PRN NEB 10/21/24 12:30 10/22/24 11:59 0.5 MG Albuterol 2.5 mg Q6HWA NEB 10/21/24 12:30 10/22/24 11:59 2.5 MG Heparin Sodium/ Dextrose 250 ml @ 21 mls/hr [id number] IV 10/21/24 17:30 10/22/24 05:25 21 MLS/HR Laboratory Results Laboratory Tests 10/22/24 03:12 Chemistry Test 10/22/24 03:12 Calcium Level 9.6 mg/dL (8.7-10.4) Coagulation Test 10/21/24 16:17 10/22/24 03:12 10/22/24 12:50 Prothrombin Time 12.8 sec (9.3-11.8) H 12.4 sec (9.3-11.8) H Pending Prothrombin Time INR 1.23 (0.9-1.15) H 1.18 (0.9-1.15) H Pending Activated Partial Thromboplast Time 44.9 SEC (24.5-34.5) H 63.1 SEC (24.5-34.5) H Pending Urinalysis Test 10/17/24 14:03 10/20/24 19:30 Urine Color Yellow (Yellow) Urine Clarity Clear (Clear) Urine pH 6.0 (5.0-9.0) Urine Specific [place] > 1.035 (1.001-1.035) Urine Protein 3+ (Negative) H Urine Ketones Negative (Negative) Urine Blood 1+ /uL (Negative) H Urine Nitrite Negative (Negative) Urine Bilirubin Negative (Negative) Urine Urobilinogen Normal mg/dL (Negative) Urine Leukocyte Esterase Negative /uL (Negative) Urine RBC 5 /hpf (0 - 3) Urine WBC 5 /hpf (0 - 3) Urine Squamous Epithelial Cells Few /hpf (<5) Urine Bacteria Few /hpf (None Seen) H Urine Hyaline Casts Few /lpf (0 - 2) Urine Mucus Few (None Seen) Urine Glucose Trace mg/dL (Normal) Urine Creatinine 118.53 mg/dL (30.0-125.0) Urine Protein/Creatinine Ratio 0.41 Urine Sodium 101 mmol/L (40-220) Urine Total Protein 49.1 mg/dL (1-14) H Microbiology Microbiology Date/Time Source Procedure Growth Status 10/17/24 18:00 Nose MRSA Screen - Final Complete 10/17/24 12:52 Blood Blood Culture - Final NO GROWTH AFTER 5 DAYS OF INCUBATION. Complete Assessment/Plan Assessment/Plan 54-year-old male with a known history of congestive heart failure, COPD, recent diagnosis of colon cancer status [place] [facility] [place] to the hospital with chest pain, worsening shortness of breath for last one day found to have 1. Acute hypoxic respiratory failure secondary to bilateral saddle pulmonary embolism currently on high-flow oxygen at 40 L with a FiO2 70% %, saturation more than 92% 2. Saddle bilateral pulmonary embolism status post mechanical thrombectomy of the right side, no further intervention for now as per intervention Radiology regarding thrombectomy 3. Acute kidney injury suspected secondary to vasomotor nephropathy 4. Acute congestive heart failure exacerbation unspecified, status post one dose of Lasix IV 5. Acute pulmonary artery hypertension suspect secondary to bilateral saddle PE 6. Right lower extremity DVT 7. Elevated troponin suspect demand ischemia secondary to acute pulmonary embolism -continue heparin drip, repeat CT angio shows lot of clot burden and right heart strain but no saddle PE, patient was scheduled for thrombectomy today with interventional radiologist -patient remains critical, prognosis remain guarded -pulmonary , cardiology, Nephrology recommendation appreciated -plan of care discussed with the patient who understand, verbalized understanding and agreeable to plan, critical condition and guarded prognosis was explained to the patient. Plan discussed with: Patient, Other (ICU charge nurse Munira) My Orders Orders - MAINOR ODEN MD Procedure Category Date Status Time * Donor Relations Coordinator CONS 10/22/24 Transmitted Consult Date of Service: Oct 22, 2024 Billing Provider: MAINOR ODEN MD Common Visit Codes: NOT BILLABLE MAINOR ODEN MD Oct 22, 2024 13:19
[2024-10-22] MEDS: IODIXANOL 320MG/ML 100ML BTL IV ONE ×3 (13:25→15:16)
[2024-10-22] MEDS: HEPARIN IN NS 1000Units/500mL 1,500 ML ONE (13:25)
[2024-10-22 13:55] LABS: INR 1.19 (0.9-1.15); Prothrombin Time 12.5 sec (9.3-11.8)
[2024-10-22 13:58] LABS: Partial Thromboplastin Time 70.4 SEC (24.5-34.5)
[2024-10-22] MEDS: fentaNYL CITRATE 100 MCG/2 ML VL ONE (14:03)
[2024-10-22] MEDS: MIDAZOLAM HCL 2MG/2ML 2ml VIAL (1mg/ml) ONE (14:04)
[2024-10-22] MEDS: LIDOCAINE 2%HCL (LOCAL ANESTH.) INJ 20ML MDV ONE (14:04)
[2024-10-22] MEDS ORDERED: ALPRAZolam 0.5 MG TAB PO SCH (16:00)
[2024-10-22 20:30] LABS: INR 1.14 (0.9-1.15); Partial Thromboplastin Time 63.9 SEC (24.5-34.5)
--- NOTE | 2024-10-22 20:32 | DVHPN2 ---
Progress Note - Dictate Date Seen: Oct 22, 2024 Medical Necessity Reason Pt with a Central, PICC or Fol: No Subjective Patient was seen and evaluated in follow up in the ICU. Patient is on 6 L oxymizer. Patient reports feeling improved today. Patient is scheduled for thrombectomy today with interventional radiologist. 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 vital signs Vital Sign Date Time Temp Pulse Resp B/P (MAP) Pulse Ox O2 Delivery O2 Flow Rate FiO2 10/22/24 12:05 89 18 97 10/22/24 12:00 Oxymizer 6 N/A 10/22/24 10:00 128/89 (102) 10/22/24 07:45 97.9 97.9 Total Intake and Output 10/21/24 10/21/24 10/22/24 15:00 23:00 07:00 Intake Total 152 ml 580 ml 2140 ml Output Total 1350 ml 4350 ml Balance 152 ml -770 ml -2210 ml medications Current Medications Medications Dose Ordered Sig/Rafael Route Start Time Stop Time Status Last Admin Dose Admin Nitroglycerin 0.4 mg Q5MINP PRN SL 10/17/24 17:00 10/17/24 22:26 0.4 MG Morphine Sulfate 2 mg Q30M PRN IV 10/17/24 17:00 10/17/24 22:36 2 MG Ondansetron HCl 4 mg Q6HPRN PRN IV 10/17/24 20:00 Acetaminophen 650 mg Q6HPRN PRN PO 10/17/24 20:00 Acetaminophen/ Hydrocodone Bitart 1 tab Q6HPRN PRN PO 10/17/24 20:00 Diagnostic Test (Pha) 1 strip ACHS 10/17/24 22:00 10/22/24 11:14 1 STRIP Insulin Human Regular ACHS SC 10/17/24 22:00 10/22/24 06:39 3 UNITS Dextrose 50 ml UD PRN IV 10/17/24 20:00 Sennosides 8.6 mg QHSP PRN PO 10/17/24 20:15 Norepinephrine Bitartrate 250 ml @ 3.75 mls/hr Q24H IV 10/18/24 02:30 10/18/24 07:33 30 MLS/HR Lorazepam 0.5 mg Q4HP PRN IV 10/18/24 08:15 Ipratropium [place] 0.5 mg Q6HPRN PRN [facility] 10/21/24 12:30 10/22/24 11:59 0.5 MG Albuterol 2.5 mg Q6HWA [facility] 10/21/24 12:30 10/22/24 11:59 2.5 MG Heparin Sodium/ Dextrose 250 ml @ 21 mls/hr [id number] IV 10/21/24 17:30 10/22/24 05:25 21 MLS/HR objective GENERAL: Awake, alert, oriented. LUNGS: Clear. CARDIOVASCULAR: Heart sounds are good. ABDOMEN: Soft. laboratory and microbiology Laboratory Tests 10/22/24 03:12 Test 10/22/24 03:12 Range/Units Serum Glucose 138 H 74-106 mg/dL Problem List Bilateral pulmonary embolism. Status post thrombectomy. Shortness of breath. Acute kidney injury. Elevated troponin level. Assessment/Plan Continued all current supportive medical care. Morphine and [place] for pain management. Heparin drip per pharmacy protocol. Diuretics with Lasix. Vasopressors for hemodynamic support. Additional plan as per the hospital course. Critical care time of 45 minutes provided to include time spent evaluation of patient at bedside, when appropriate patient/family education for diagnosis, treatment plan, review of pertinent medical information and discussion of care with specialty providers and PCP. Dietary Evaluation Review Comments: Continue current plan of care Expected Outcomes/Goals: F/U in 3-5 days Plan discussed with: Patient LYNNE FU MD Oct 22, 2024 13:40
--- NOTE | 2024-10-22 23:06 | DVHPN2 ---
Progress Note - Dictate Date Seen: Oct 22, 2024 Medical Necessity Reason Pt with a Central, PICC or Fol: No Subjective Patient seen and examined at bedside. Remains on supplemental oxygen Overnight events reviewed. vital signs Vital Sign Date Time Temp Pulse Resp B/P (MAP) Pulse Ox O2 Delivery O2 Flow Rate FiO2 10/22/24 22:00 69 10/22/24 22:00 20 94 Oxymizer 4 N/A 10/22/24 22:00 112/71 (85) 10/22/24 20:00 98.6 98.6 Total Intake and Output 10/21/24 10/21/24 10/22/24 15:00 23:00 07:00 Intake Total 152 ml 580 ml 2140 ml Output Total 1350 ml 4350 ml Balance 152 ml -770 ml -2210 ml medications Current Medications Medications Dose Ordered Sig/Rafael Route Start Time Stop Time Status Last Admin Dose Admin Nitroglycerin 0.4 mg Q5MINP PRN SL 10/17/24 17:00 10/17/24 22:26 0.4 MG Morphine Sulfate 2 mg Q30M PRN IV 10/17/24 17:00 10/17/24 22:36 2 MG Ondansetron HCl 4 mg Q6HPRN PRN IV 10/17/24 20:00 Acetaminophen 650 mg Q6HPRN PRN PO 10/17/24 20:00 Acetaminophen/ Hydrocodone Bitart 1 tab Q6HPRN PRN PO 10/17/24 20:00 Diagnostic Test (Pha) 1 strip ACHS 10/17/24 22:00 10/22/24 21:24 1 STRIP Insulin Human Regular ACHS SC 10/17/24 22:00 10/22/24 21:26 4 UNITS Dextrose 50 ml UD PRN IV 10/17/24 20:00 Sennosides 8.6 mg QHSP PRN PO 10/17/24 20:15 Norepinephrine Bitartrate 250 ml @ 3.75 mls/hr Q24H IV 10/18/24 02:30 10/18/24 07:33 30 MLS/HR Lorazepam 0.5 mg Q4HP PRN IV 10/18/24 08:15 Ipratropium [place] 0.5 mg Q6HPRN PRN NEB 10/21/24 12:30 10/22/24 19:16 0.5 MG Albuterol 2.5 mg Q6HWA NEB 10/21/24 12:30 10/22/24 19:16 2.5 MG Heparin Sodium/ Dextrose 250 ml @ 21 mls/hr [id number] IV 10/21/24 17:30 10/22/24 19:29 21 MLS/HR Alprazolam 0.25 mg BID PRN PO 10/22/24 16:15 objective Gen.: Patient lying in bed in no apparent distress. On supplemental oxygen. Head: Normocephalic, atraumatic. Eyes: EOMI/PERRLA. Ears: Normal hearing. Normal anatomy. Neck/trachea: Trachea midline, supple. Nose: Normal external anatomy. Mouth: Moist mucous membranes. Chest: Decreased air entry bilaterally. No wheezing or rhonchi. Cardiovascular: Positive S1, positive S2. Regular rate and rhythm. Abdomen: Positive bowel sounds in all 4 quadrants. Soft, non-tender, non- distended. : Deferred. Rectal: Deferred. Skin: Warm, dry. Intact. Extremities: 2+ radial pulses bilaterally. No lower extremity edema. Neuro: Awake, alert, oriented x3. No gross motor or sensory deficits. Cranial nerves II through XII intact. Gait not assessed. laboratory and microbiology Laboratory Tests 10/22/24 03:12 Test 10/22/24 03:12 Range/Units Serum Glucose 138 H 74-106 mg/dL Assessment/Plan Impression: Acute hypoxic respiratory failure Saddle pulmonary embolism DM type II Chronic obstructive pulmonary disease Congestive heart failure Colon cancer S/p hemicolectomy Morbid obesity, BMI 41.4 s/p Thrombectomy Events: Remains on supplemental O2, on 6 LPM Oxymizer. Continue to taper as tolerated Patient is stable from the pulmonary standpoint for downgrade to EVELINE. Continue heparin drip for PE. Incentive spirometry. CTA chest demonstrated still persistent large amount of thrombus with evidence of right heart strain.. Plan for thrombectomy by IR. WBC is wnl. Monitor platelets - 91 k. Accu-Cheks, ISS. Labs and imaging reviewed. Rest of plan as noted below. Plan: Supplemental oxygen Titrate to keep O2 sats above 92%. Bronchodilators PRN. Heparin drip. Plan for thrombectomy by IR. PRN morphine for pain control Avoid oversedation Monitor renal function. Monitor electrolytes. Supplement as necessary. Monitor ins and outs. Diet and lifestyle modifications for weight reduction Morbid obesity - complicates all care DVT prophylaxis. Prognosis: Poor given patient's multiple co-morbidities. Condition: Critical Rest of plan per hospitalist and other consultants. A total of 35 minutes of critical care time was spent reviewing the patient record, examining the patient, making a diagnostic and therapeutic plan, discussing this plan with the medical personnel, following up on diagnostic studies and following the patient for clinical stability excluding any and all procedures. At least 50% of this time was spent in direct, [id number] contact. Thank you Ivanna Redd NP, for allowing me to participate in this patient's care. Further recommendations will depend on the patient's clinical course. Please do not hesitate to contact me if you have any questions or concerns. This medical document was created using an electronic medical record system with [employer] dictation system. Although these documentations are being carefully reviewed, there may still be some phonetic and typographical changes. The errors are purely typographical, due to imperfection on the software program, and do not reflect any compromise in the patient's medical care. Dietary Evaluation Review Comments: Continue current plan of care Expected Outcomes/Goals: F/U in 3-5 days Plan discussed with: Patient, Other (MERVIN Ratliff) Critical Care Time(min): 35 CARON LACY MD Oct 22, 2024 23:05
[2024-10-23] VITALS (19 sets, daily range): BP systolic 99–130; BP diastolic 57–89; PULSE 68–99; RESP 15–22; TEMP 98.2–98.5; O2SAT 92–96
[2024-10-23 04:07] LABS: Basophils # (auto) 0 10 ^3/uL (0-0.2); Basophils % (auto) 0.4 % (0.0-2.0); Eosinophils # (auto) 0.4 10 ^3/uL (0-0.8); Eosinophils % (auto) 4.2 % (0.0-7.0); Hematocrit 40.7 % (41.0-53.0); Hemoglobin 13.7 g/dL (13.5-17.5); Lymphocytes # (auto) 1.5 10 ^3/uL (0.4-5.4); Lymphocytes % (auto) 15.2 % (10.0-50.0); Mean Corpuscular Hemoglobin 31.5 pg (28.0-32.0); Mean Corpuscular Hgb Conc. 33.6 g/dL (32.0-36.0); Mean Corpuscular Volume 93.8 fL (80.0-100.0); Monocytes # (auto) 0.9 10 ^3/uL (0-1.3); Monocytes % (auto) 9.4 % (0.0-12.0); Neutrophils % (auto) 70.8 % (37.0-80.0); Platelet Count (auto) 84 10^3/uL (140-450); Red Blood Cells 4.34 10^6/uL (4.5-5.90); Red Cell Distribution Width 14.6 % (11.8-14.3); White Blood Cell 9.8 10^3/uL (4.4-10.8)
[2024-10-23 04:22] LABS: Albumin 3.4 g/dL (3.2-4.8); Alkaline Phosphatase 76 U/L (46-116); Anion Gap 9 (5-15); BUN/Creatinine Ratio 16.3 (10.0-20.0); Blood Urea Nitrogen 22 mg/dL (9-23); Calcium 9.2 mg/dL (8.7-10.4); Carbon Dioxide 25 mmol/L (20-31); Chloride 107 mmol/L (98-107); Potassium 4.1 mmol/L (3.5-5.1); Sodium 141 mmol/L (136-145)
[2024-10-23 04:23] LABS: Aspartate Aminotransferase 22 U/L (13-40); Bilirubin, Total 0.6 mg/dL (0.2-1.0)
[2024-10-23 04:26] LABS: Alanine Aminotransferase 83 U/L (7-40); Glucose 210 mg/dL (74-106)
[2024-10-23 04:27] LABS: INR 1.15 (0.9-1.15); Partial Thromboplastin Time 69.5 SEC (24.5-34.5); Prothrombin Time 12.1 sec (9.3-11.8)
--- NOTE | 2024-10-23 14:53 | DVHPN2 ---
Subjective Patient underwent mechanical thrombectomy yesterday again, currently on 4 L of oxygen by nasal Oxymizer. Patient's has a known history of autoimmune liver disease currently on CellCept which will be resumed. Reviewed: Care Plan Changes from previous H/P or p: No Changes Objective Vitals Vital Signs Date Time Temp Pulse Resp B/P (MAP) Pulse Ox O2 Delivery O2 Flow Rate FiO2 10/23/24 14:21 88 21 95 10/23/24 08:00 Oxymizer 5 N/A 10/23/24 07:00 115/75 (88) 10/23/24 04:00 98.3 98.3 Intake/Output Intake and Output 10/23/24 07:00 Intake Total 1694 ml Output Total 1420 ml Balance 274 ml Intake Oral 1190 ml IV Total 504 ml Output Urine Total 1420 ml Exam HEENT pupils are reactive Neck is supple CV is S1-S2 regular rhythm positive tachycardic with 100-110 Respiratory bilateral diminished breath sound bases GI posterior bowel sounds 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 Medications Current Medications Medications Dose Ordered Sig/Rafael Route Start Time Stop Time Status Last Admin Dose Admin Nitroglycerin 0.4 mg Q5MINP PRN SL 10/17/24 17:00 10/17/24 22:26 0.4 MG Morphine Sulfate 2 mg Q30M PRN IV 10/17/24 17:00 10/17/24 22:36 2 MG Ondansetron HCl 4 mg Q6HPRN PRN IV 10/17/24 20:00 Acetaminophen 650 mg Q6HPRN PRN PO 10/17/24 20:00 Acetaminophen/ Hydrocodone Bitart 1 tab Q6HPRN PRN PO 10/17/24 20:00 Diagnostic Test (Pha) 1 strip ACHS 10/17/24 22:00 10/22/24 21:24 1 STRIP Insulin Human Regular ACHS SC 10/17/24 22:00 10/22/24 21:26 4 UNITS Dextrose 50 ml UD PRN IV 10/17/24 20:00 Sennosides 8.6 mg QHSP PRN PO 10/17/24 20:15 Norepinephrine Bitartrate 250 ml @ 3.75 mls/hr Q24H IV 10/18/24 02:30 10/18/24 07:33 30 MLS/HR Lorazepam 0.5 mg Q4HP PRN IV 10/18/24 08:15 Ipratropium [place] 0.5 mg Q6HPRN PRN NEB 10/21/24 12:30 10/23/24 08:44 0.5 MG Albuterol 2.5 mg Q6HWA NEB 10/21/24 12:30 10/23/24 08:44 2.5 MG Heparin Sodium/ Dextrose 250 ml @ 21 mls/hr [id number] IV 10/21/24 17:30 10/23/24 06:40 21 MLS/HR Alprazolam 0.25 mg BID PRN PO 10/22/24 16:15 Mycophenolate Mofetil 250 mg BID PO 10/23/24 22:00 UNV Laboratory Results Laboratory Tests 10/23/24 03:21 Chemistry Test 10/23/24 03:21 Albumin 3.4 g/dL (3.2-4.8) Calcium Level 9.2 mg/dL (8.7-10.4) Total Protein 6.0 g/dL (5.7-8.2) Coagulation Test 10/22/24 19:58 10/23/24 03:21 Prothrombin Time 12.0 sec (9.3-11.8) H 12.1 sec (9.3-11.8) H Prothrombin Time INR 1.14 (0.9-1.15) 1.15 (0.9-1.15) Activated Partial Thromboplast Time 63.9 SEC (24.5-34.5) H 69.5 SEC (24.5-34.5) H LFT Test 10/23/24 03:21 Alanine Aminotransferase (ALT) 83 U/L (7-40) H Alkaline Phosphatase 76 U/L (46-116) Aspartate Amino Transferase (AST) 22 U/L (13-40) Total Bilirubin 0.6 mg/dL (0.2-1.0) Urinalysis Test 10/17/24 14:03 10/20/24 19:30 Urine Color Yellow (Yellow) Urine Clarity Clear (Clear) Urine pH 6.0 (5.0-9.0) Urine Specific [place] > 1.035 (1.001-1.035) Urine Protein 3+ (Negative) H Urine Ketones Negative (Negative) Urine Blood 1+ /uL (Negative) H Urine Nitrite Negative (Negative) Urine Bilirubin Negative (Negative) Urine Urobilinogen Normal mg/dL (Negative) Urine Leukocyte Esterase Negative /uL (Negative) Urine RBC 5 /hpf (0 - 3) Urine WBC 5 /hpf (0 - 3) Urine Squamous Epithelial Cells Few /hpf (<5) Urine Bacteria Few /hpf (None Seen) H Urine Hyaline Casts Few /lpf (0 - 2) Urine Mucus Few (None Seen) Urine Glucose Trace mg/dL (Normal) Urine Creatinine 118.53 mg/dL (30.0-125.0) Urine Protein/Creatinine Ratio 0.41 Urine Sodium 101 mmol/L (40-220) Urine Total Protein 49.1 mg/dL (1-14) H Microbiology Microbiology Date/Time Source Procedure Growth Status 10/17/24 18:00 Nose MRSA Screen - Final Complete 10/17/24 12:52 Blood Blood Culture - Final NO GROWTH AFTER 5 DAYS OF INCUBATION. Complete Assessment/Plan Assessment/Plan 54-year-old male with a known history of congestive heart failure, COPD, recent diagnosis of colon cancer [place] [facility] [place] to the hospital with chest pain, worsening shortness of breath for last one day found to have 1. Acute hypoxic respiratory failure secondary to bilateral saddle pulmonary embolism currently on high-flow oxygen at 40 L with a FiO2 70% %, saturation more than 92% 2. Saddle bilateral pulmonary embolism status post mechanical thrombectomy of the right side, status post bilateral thrombectomy on10/22 3. Acute kidney injury suspected secondary to vasomotor nephropathy 4. Acute congestive heart failure exacerbation unspecified, status post one dose of Lasix IV 5. Acute pulmonary artery hypertension suspect secondary to bilateral saddle PE 6. Right lower extremity DVT 7. Elevated troponin suspect demand ischemia secondary to acute pulmonary embolism name 8. Autoimmune liver disease, resume CellCept -resume CellCept , renal dose per pharmacy -continue heparin drip, repeat CT angio shows lot of clot burden and right heart strain but no saddle PE, patient was scheduled for thrombectomy today with interventional radiologist -patient remains critical, prognosis remain guarded -pulmonary , cardiology, Nephrology recommendation appreciated -plan of care discussed with the patient who understand, verbalized understanding and agreeable to plan, critical condition and guarded prognosis was explained to the patient. Plan discussed with: Patient, Other My Orders Orders - MAINOR ODEN MD Procedure Category Date Status Time Transfer Orders XFER 10/22/24 Transmitted 15:50 Alprazolam Tablet PHA 10/22/24 In Process (Xanax Tablet) 16:15 PTPTT LAB 10/24/24 Verified 03:21 Mycophenolate Mofetil PHA 10/23/24 Logged (Cellcept) 22:00 Date of Service: Oct 23, 2024 Billing Provider: MAINOR ODEN MD Common Visit Codes: NOT BILLABLE MAINOR ODEN MD Oct 23, 2024 14:53
--- NOTE | 2024-10-23 20:28 | DVHPN2 ---
Progress Note - Dictate Date Seen: Oct 23, 2024 Medical Necessity Reason Pt with a Central, PICC or Fol: No Subjective Patient seen and examined at bedside. Remains on supplemental oxygen Overnight events reviewed. vital signs Vital Sign Date Time Temp Pulse Resp B/P (MAP) Pulse Ox O2 Delivery O2 Flow Rate FiO2 10/23/24 18:35 85 21 95 10/23/24 18:27 Oxymizer 3 N/A 10/23/24 16:00 98.3 117/72 (87) 98.3 Total Intake and Output 10/22/24 10/22/24 10/23/24 15:00 23:00 07:00 Intake Total 168 ml 758 ml 768 ml Output Total 520 ml 900 ml Balance 168 ml 238 ml -132 ml medications Current Medications Medications Dose Ordered Sig/Rafael Route Start Time Stop Time Status Last Admin Dose Admin Nitroglycerin 0.4 mg Q5MINP PRN SL 10/17/24 17:00 10/17/24 22:26 0.4 MG Morphine Sulfate 2 mg Q30M PRN IV 10/17/24 17:00 10/17/24 22:36 2 MG Ondansetron HCl 4 mg Q6HPRN PRN IV 10/17/24 20:00 Acetaminophen 650 mg Q6HPRN PRN PO 10/17/24 20:00 Acetaminophen/ Hydrocodone Bitart 1 tab Q6HPRN PRN PO 10/17/24 20:00 Diagnostic Test (Pha) 1 strip ACHS 10/17/24 22:00 10/23/24 18:15 1 STRIP Insulin Human Regular ACHS SC 10/17/24 22:00 10/23/24 19:29 3 UNITS Dextrose 50 ml UD PRN IV 10/17/24 20:00 Sennosides 8.6 mg QHSP PRN PO 10/17/24 20:15 Norepinephrine Bitartrate 250 ml @ 3.75 mls/hr Q24H IV 10/18/24 02:30 10/18/24 07:33 30 MLS/HR Lorazepam 0.5 mg Q4HP PRN IV 10/18/24 08:15 Ipratropium [place] 0.5 mg Q6HPRN PRN NEB 10/21/24 12:30 10/23/24 18:27 0.5 MG Albuterol 2.5 mg Q6HWA NEB 10/21/24 12:30 10/23/24 18:27 2.5 MG Heparin Sodium/ Dextrose 250 ml @ 21 mls/hr [id number] IV 10/21/24 17:30 10/23/24 19:06 21 MLS/HR Alprazolam 0.25 mg BID PRN PO 10/22/24 16:15 Mycophenolate Mofetil 250 mg BID PO 10/23/24 22:00 objective Gen.: Patient lying in bed in no apparent distress. On supplemental oxygen. Head: Normocephalic, atraumatic. Eyes: EOMI/PERRLA. Ears: Normal hearing. Normal anatomy. Neck/trachea: Trachea midline, supple. Nose: Normal external anatomy. Mouth: Moist mucous membranes. Chest: Decreased air entry bilaterally. No wheezing or rhonchi. Cardiovascular: Positive S1, positive S2. Regular rate and rhythm. Abdomen: Positive bowel sounds in all 4 quadrants. Soft, non-tender, non- distended. : Deferred. Rectal: Deferred. Skin: Warm, dry. Intact. Extremities: 2+ radial pulses bilaterally. No lower extremity edema. Neuro: Awake, alert, oriented x3. No gross motor or sensory deficits. Cranial nerves II through XII intact. Gait not assessed. laboratory and microbiology Laboratory Tests 10/23/24 03:21 Test 10/23/24 03:21 Range/Units Serum Glucose 210 H 74-106 mg/dL Assessment/Plan Impression: Acute hypoxic respiratory failure Saddle pulmonary embolism DM type II Chronic obstructive pulmonary disease Congestive heart failure Colon cancer S/p hemicolectomy Morbid obesity, BMI 41.4 s/p Thrombectomy Events: Remains on supplemental O2, on 3 LPM Oxymizer. Improved O2 requirements, down from 4.5 LPM Oxymizer. Continue to taper as tolerated Continue heparin drip for PE. Patient is s/p thrombectomy by IR. Continue antibiotics Patient is feeling better, breathing comfortably. Monitor platelets - trended down to 84 k. Accu-Cheks, ISS. Labs and imaging reviewed. Rest of plan as noted below. Plan: Supplemental oxygen Titrate to keep O2 sats above 92%. Bronchodilators PRN. Heparin drip. S/p thrombectomy by IR. PRN morphine for pain control Avoid oversedation Monitor renal function. Monitor electrolytes. Supplement as necessary. Monitor ins and outs. Diet and lifestyle modifications for weight reduction Morbid obesity - complicates all care DVT prophylaxis. Prognosis: Poor given patient's multiple co-morbidities. Condition: Critical Rest of plan per hospitalist and other consultants. A total of 35 minutes of critical care time was spent reviewing the patient record, examining the patient, making a diagnostic and therapeutic plan, discussing this plan with the medical personnel, following up on diagnostic studies and following the patient for clinical stability excluding any and all procedures. At least 50% of this time was spent in direct, [id number] contact. Thank you Ivanna Redd NP, for allowing me to participate in this patient's care. Further recommendations will depend on the patient's clinical course. Please do not hesitate to contact me if you have any questions or concerns. This medical document was created using an electronic medical record system with [employer] dictation system. Although these documentations are being carefully reviewed, there may still be some phonetic and typographical changes. The errors are purely typographical, due to imperfection on the software program, and do not reflect any compromise in the patient's medical care. Dietary Evaluation Review Comments: Continue current plan of care Expected Outcomes/Goals: F/U in 3-5 days Plan discussed with: Other (MERVIN Garzon/Batsheva) Critical Care Time(min): 35 CARON LACY MD Oct 23, 2024 20:28
--- NOTE | 2024-10-23 21:00 | DVHPN2 ---
Progress Note - Dictate Date Seen: Oct 23, 2024 Medical Necessity Reason Pt with a Central, PICC or Fol: No Subjective Patient was seen and evaluated in follow up in the ICU. Patient remains on 6 L oxymizer. Patient is s/p successful thrombectomy. RN INTERNAL MEDICINE 1.35, GLUC 210. vital signs Vital Sign Date Time Temp Pulse Resp B/P (MAP) Pulse Ox O2 Delivery O2 Flow Rate FiO2 10/23/24 07:05 68 17 96 10/23/24 07:00 115/75 (88) 10/23/24 06:59 Oxymizer 6 N/A 10/23/24 04:00 98.3 98.3 Total Intake and Output 10/22/24 10/22/24 10/23/24 15:00 23:00 07:00 Intake Total 168 ml 758 ml 768 ml Output Total 520 ml 900 ml Balance 168 ml 238 ml -132 ml medications Current Medications Medications Dose Ordered Sig/Rafael Route Start Time Stop Time Status Last Admin Dose Admin Nitroglycerin 0.4 mg Q5MINP PRN SL 10/17/24 17:00 10/17/24 22:26 0.4 MG Morphine Sulfate 2 mg Q30M PRN IV 10/17/24 17:00 10/17/24 22:36 2 MG Ondansetron HCl 4 mg Q6HPRN PRN IV 10/17/24 20:00 Acetaminophen 650 mg Q6HPRN PRN PO 10/17/24 20:00 Acetaminophen/ Hydrocodone Bitart 1 tab Q6HPRN PRN PO 10/17/24 20:00 Diagnostic Test (Pha) 1 strip ACHS 10/17/24 22:00 10/22/24 21:24 1 STRIP Insulin Human Regular ACHS SC 10/17/24 22:00 10/22/24 21:26 4 UNITS Dextrose 50 ml UD PRN IV 10/17/24 20:00 Sennosides 8.6 mg QHSP PRN PO 10/17/24 20:15 Norepinephrine Bitartrate 250 ml @ 3.75 mls/hr Q24H IV 10/18/24 02:30 10/18/24 07:33 30 MLS/HR Lorazepam 0.5 mg Q4HP PRN IV 10/18/24 08:15 Ipratropium [place] 0.5 mg Q6HPRN PRN NEB 10/21/24 12:30 10/23/24 08:44 0.5 MG Albuterol 2.5 mg Q6HWA NEB 10/21/24 12:30 10/23/24 08:44 2.5 MG Heparin Sodium/ Dextrose 250 ml @ 21 mls/hr [id number] IV 10/21/24 17:30 10/23/24 06:40 21 MLS/HR Alprazolam 0.25 mg BID PRN PO 10/22/24 16:15 objective GENERAL: Awake, alert, oriented. LUNGS: Clear. CARDIOVASCULAR: Heart sounds are good. ABDOMEN: Soft. laboratory and microbiology Laboratory Tests 10/23/24 03:21 Test 10/23/24 03:21 Range/Units Serum Glucose 210 H 74-106 mg/dL Problem List Bilateral pulmonary embolism. Status post thrombectomy. Shortness of breath. Acute kidney injury. Elevated troponin level. Assessment/Plan Continued all current supportive medical care. Morphine and [place] for pain management. Heparin drip per pharmacy protocol. Diuretics with Lasix. Vasopressors for hemodynamic support. Additional plan as per the hospital course. Critical care time of 45 minutes provided to include time spent evaluation of patient at bedside, when appropriate patient/family education for diagnosis, treatment plan, review of pertinent medical information and discussion of care with specialty providers and PCP. Dietary Evaluation Review Comments: Continue current plan of care Expected Outcomes/Goals: F/U in 3-5 days Plan discussed with: Patient LYNNE FU MD Oct 23, 2024 11:24
[2024-10-23] MEDS: MYCOPHENOLATE 250 MG CAP PO SCH (22:27)
[2024-10-24] VITALS (17 sets, daily range): BP systolic 106–132; BP diastolic 71–90; PULSE 64–87; RESP 13–21; TEMP 97.8–98.7; O2SAT 90–95
[2024-10-24 03:57] LABS: Basophils # (auto) 0 10 ^3/uL (0-0.2); Basophils % (auto) 0.4 % (0.0-2.0); Eosinophils # (auto) 0.5 10 ^3/uL (0-0.8); Eosinophils % (auto) 5.7 % (0.0-7.0); Hematocrit 40.2 % (41.0-53.0); Hemoglobin 13.1 g/dL (13.5-17.5); Lymphocytes # (auto) 1.5 10 ^3/uL (0.4-5.4); Lymphocytes % (auto) 18.4 % (10.0-50.0); Mean Corpuscular Hemoglobin 31.3 pg (28.0-32.0); Mean Corpuscular Hgb Conc. 32.5 g/dL (32.0-36.0); Mean Corpuscular Volume 96.1 fL (80.0-100.0); Monocytes # (auto) 0.7 10 ^3/uL (0-1.3); Monocytes % (auto) 8.5 % (0.0-12.0); Neutrophils # (auto) 5.6 10 ^3/uL (1.6-8.6); Nucleated Red Blood Cells % 0.1 %; Platelet Count (auto) 88 10^3/uL (140-450); Red Blood Cells 4.18 10^6/uL (4.5-5.90); Red Cell Distribution Width 14.7 % (11.8-14.3); White Blood Cell 8.4 10^3/uL (4.4-10.8)
[2024-10-24 04:08] LABS: INR 1.1 (0.9-1.15); Partial Thromboplastin Time 64.6 SEC (24.5-34.5); Prothrombin Time 11.6 sec (9.3-11.8)
[2024-10-24 04:11] LABS: Anion Gap 11 (5-15); Carbon Dioxide 23 mmol/L (20-31); Potassium 3.9 mmol/L (3.5-5.1); Sodium 142 mmol/L (136-145)
[2024-10-24 04:12] LABS: Calcium 9.3 mg/dL (8.7-10.4)
[2024-10-24 04:17] LABS: BUN/Creatinine Ratio 19.1 (10.0-20.0); Blood Urea Nitrogen 22 mg/dL (9-23); Chloride 108 mmol/L (98-107); Glucose 148 mg/dL (74-106)
--- NOTE | 2024-10-24 17:33 | DVHPN2 ---
Progress Note - Dictate Date Seen: Oct 24, 2024 Medical Necessity Reason Pt with a Central, PICC or Fol: No Subjective He is clinically stable. Out of bed to chair. Oxygenation and heart rate have improved. On 2-3 L of oxygen via nasal cannula. vital signs Vital Sign Date Time Temp Pulse Resp B/P (MAP) Pulse Ox O2 Delivery O2 Flow Rate FiO2 10/24/24 16:00 98.7 85 19 106/72 (83) 92 98.7 10/24/24 16:00 Room Air* 0 21 Total Intake and Output 10/23/24 10/23/24 10/24/24 15:00 23:00 07:00 Intake Total 1168 ml 1168 ml 768 ml Output Total 550 ml 500 ml Balance 1168 ml 618 ml 268 ml medications Current Medications Medications Dose Ordered Sig/Rafael Route Start Time Stop Time Status Last Admin Dose Admin Nitroglycerin 0.4 mg Q5MINP PRN SL 10/17/24 17:00 10/17/24 22:26 0.4 MG Morphine Sulfate 2 mg Q30M PRN IV 10/17/24 17:00 10/17/24 22:36 2 MG Ondansetron HCl 4 mg Q6HPRN PRN IV 10/17/24 20:00 Acetaminophen 650 mg Q6HPRN PRN PO 10/17/24 20:00 Acetaminophen/ Hydrocodone Bitart 1 tab Q6HPRN PRN PO 10/17/24 20:00 Diagnostic Test (Pha) 1 strip ACHS 10/17/24 22:00 10/24/24 17:24 1 STRIP Insulin Human Regular ACHS SC 10/17/24 22:00 10/24/24 11:30 4 UNITS Dextrose 50 ml UD PRN IV 10/17/24 20:00 Sennosides 8.6 mg QHSP PRN PO 10/17/24 20:15 Lorazepam 0.5 mg Q4HP PRN IV 10/18/24 08:15 Ipratropium [place] 0.5 mg Q6HPRN PRN NEB 10/21/24 12:30 10/24/24 11:54 0.5 MG Albuterol 2.5 mg Q6HWA NEB 10/21/24 12:30 10/24/24 11:53 2.5 MG Heparin Sodium/ Dextrose 250 ml @ 21 mls/hr [id number] IV 10/21/24 17:30 10/24/24 05:58 21 MLS/HR Alprazolam 0.25 mg BID PRN PO 10/22/24 16:15 Mycophenolate Mofetil 250 mg BID PO 10/23/24 22:00 10/24/24 09:08 250 MG objective Comfortable in bed without distress. HEENT neck supple no JVD. Heart regular rate and rhythm S1 and S2. Lungs without rales wheezes. Abdomen soft nontender positive bowel sounds. Extremities no edema positive pulses. laboratory and microbiology Laboratory Tests 10/24/24 03:11 Test 10/24/24 03:11 Range/Units Serum Glucose 148 H 74-106 mg/dL Assessment/Plan His DVT/pulmonary embolism he is improving. He is vital signs are stabilized. Therefore we will downgrade and transferred to telemetry floor. Continue IV heparin drip for another 24 hours. Transitioned to oral Eliquis. Otherwise continue rest of supportive care and treatment. Given his blood sugars elevated I will start him on Lantus at night. We will check A1c levels. Further clinical management per clinical course. Discussed with the nurse regarding care plan. Problems(with codes): (1) Shortness of breath (2) Pulmonary embolism (3) Chest pain (4) Leg pain, right Dietary Evaluation Review Comments: Continue current plan of care Expected Outcomes/Goals: F/U in 3-5 days Plan discussed with: Other DHAVAL MARQUEZ MD Oct 24, 2024 17:33
--- NOTE | 2024-10-24 19:34 | DVHPN2 ---
Progress Note - Dictate Date Seen: Oct 24, 2024 Medical Necessity Reason Pt with a Central, PICC or Fol: No Subjective Patient was seen and evaluated in follow up in the ICU. Patient reports improvement in SOB, he is now on 3 LPM NC. Patient ambulated with PT assistance today. PTT 64.6, CL 108, GLUC 148. vital signs Vital Sign Date Time Temp Pulse Resp B/P (MAP) Pulse Ox O2 Delivery O2 Flow Rate FiO2 10/24/24 12:03 81 16 94 10/24/24 11:54 Nasal Cannula 3.0 10/24/24 11:54 32 10/24/24 08:00 98.0 112/74 (87) 98.0 Total Intake and Output 10/23/24 10/23/24 10/24/24 15:00 23:00 07:00 Intake Total 1168 ml 1168 ml 768 ml Output Total 550 ml 500 ml Balance 1168 ml 618 ml 268 ml medications Current Medications Medications Dose Ordered Sig/Rafael Route Start Time Stop Time Status Last Admin Dose Admin Nitroglycerin 0.4 mg Q5MINP PRN SL 10/17/24 17:00 10/17/24 22:26 0.4 MG Morphine Sulfate 2 mg Q30M PRN IV 10/17/24 17:00 10/17/24 22:36 2 MG Ondansetron HCl 4 mg Q6HPRN PRN IV 10/17/24 20:00 Acetaminophen 650 mg Q6HPRN PRN PO 10/17/24 20:00 Acetaminophen/ Hydrocodone Bitart 1 tab Q6HPRN PRN PO 10/17/24 20:00 Diagnostic Test (Pha) 1 strip ACHS 10/17/24 22:00 10/24/24 07:00 1 STRIP Insulin Human Regular ACHS SC 10/17/24 22:00 10/23/24 22:27 4 UNITS Dextrose 50 ml UD PRN IV 10/17/24 20:00 Sennosides 8.6 mg QHSP PRN PO 10/17/24 20:15 Norepinephrine Bitartrate 250 ml @ 3.75 mls/hr Q24H IV 10/18/24 02:30 10/18/24 07:33 30 MLS/HR Lorazepam 0.5 mg Q4HP PRN IV 10/18/24 08:15 Ipratropium [place] 0.5 mg Q6HPRN PRN NEB 10/21/24 12:30 10/24/24 11:54 0.5 MG Albuterol 2.5 mg Q6HWA NEB 10/21/24 12:30 10/24/24 11:53 2.5 MG Heparin Sodium/ Dextrose 250 ml @ 21 mls/hr [id number] IV 10/21/24 17:30 10/24/24 05:58 21 MLS/HR Alprazolam 0.25 mg BID PRN PO 10/22/24 16:15 Mycophenolate Mofetil 250 mg BID PO 10/23/24 22:00 10/24/24 09:08 250 MG objective GENERAL: Awake, alert, oriented. LUNGS: Clear. CARDIOVASCULAR: Heart sounds are good. ABDOMEN: Soft. laboratory and microbiology Laboratory Tests 10/24/24 03:11 Test 10/24/24 03:11 Range/Units Serum Glucose 148 H 74-106 mg/dL Problem List Bilateral pulmonary embolism. Status post thrombectomy. Shortness of breath. Acute kidney injury. Elevated troponin level. Assessment/Plan Continued all current supportive medical care. Morphine and [place] for pain management. Heparin drip per pharmacy protocol. Diuretics with Lasix. Additional plan as per the hospital course. Critical care time of 45 minutes provided to include time spent evaluation of patient at bedside, when appropriate patient/family education for diagnosis, treatment plan, review of pertinent medical information and discussion of care with specialty providers and PCP. Dietary Evaluation Review Comments: Continue current plan of care Expected Outcomes/Goals: F/U in 3-5 days Plan discussed with: Patient LYNNE FU MD Oct 24, 2024 12:14
[2024-10-24] MEDS: LORazepam 2MG/ML-1ML VIAL IV PRN (20:14)
[2024-10-24] MEDS: INSULIN LANTUS (GLARGINE) 1 /0.01ml (100units/ml) SC SCH (21:37)
--- NOTE | 2024-10-24 23:00 | DVHPN2 ---
Progress Note - Dictate Date Seen: Oct 24, 2024 Medical Necessity Reason Pt with a Central, PICC or Fol: No Subjective Patient seen and examined at bedside. Remains on supplemental oxygen Overnight events reviewed. vital signs Vital Sign Date Time Temp Pulse Resp B/P (MAP) Pulse Ox O2 Delivery O2 Flow Rate FiO2 10/24/24 18:47 90 Room Air* 0 21 10/24/24 18:46 82 18 10/24/24 16:00 98.7 106/72 (83) 98.7 Total Intake and Output 10/23/24 10/23/24 10/24/24 15:00 23:00 07:00 Intake Total 1168 ml 1168 ml 768 ml Output Total 550 ml 500 ml Balance 1168 ml 618 ml 268 ml medications Current Medications Medications Dose Ordered Sig/Rafael Route Start Time Stop Time Status Last Admin Dose Admin Nitroglycerin 0.4 mg Q5MINP PRN SL 10/17/24 17:00 10/17/24 22:26 0.4 MG Morphine Sulfate 2 mg Q30M PRN IV 10/17/24 17:00 10/17/24 22:36 2 MG Ondansetron HCl 4 mg Q6HPRN PRN IV 10/17/24 20:00 Acetaminophen 650 mg Q6HPRN PRN PO 10/17/24 20:00 Acetaminophen/ Hydrocodone Bitart 1 tab Q6HPRN PRN PO 10/17/24 20:00 Diagnostic Test (Pha) 1 strip ACHS 10/17/24 22:00 10/24/24 21:37 1 STRIP Insulin Human Regular ACHS SC 10/17/24 22:00 10/24/24 21:35 3 UNITS Dextrose 50 ml UD PRN IV 10/17/24 20:00 Sennosides 8.6 mg QHSP PRN PO 10/17/24 20:15 Lorazepam 0.5 mg Q4HP PRN IV 10/18/24 08:15 10/24/24 20:14 0.5 MG Ipratropium [place] 0.5 mg Q6HPRN PRN NEB 10/21/24 12:30 10/24/24 18:45 0.5 MG Albuterol 2.5 mg Q6HWA NEB 10/21/24 12:30 10/24/24 18:45 2.5 MG Heparin Sodium/ Dextrose 250 ml @ 21 mls/hr [id number] IV 10/21/24 17:30 10/24/24 05:58 21 MLS/HR Alprazolam 0.25 mg BID PRN PO 10/22/24 16:15 Mycophenolate Mofetil 250 mg BID PO 10/23/24 22:00 10/24/24 09:08 250 MG Insulin Glargine 5 units HS SC 10/24/24 22:00 10/24/24 21:37 5 UNITS objective Gen.: Patient lying in bed in no apparent distress. On supplemental oxygen. Head: Normocephalic, atraumatic. Eyes: EOMI/PERRLA. Ears: Normal hearing. Normal anatomy. Neck/trachea: Trachea midline, supple. Nose: Normal external anatomy. Mouth: Moist mucous membranes. Chest: Decreased air entry bilaterally. No wheezing or rhonchi. Cardiovascular: Positive S1, positive S2. Regular rate and rhythm. Abdomen: Positive bowel sounds in all 4 quadrants. Soft, non-tender, non- distended. : Deferred. Rectal: Deferred. Skin: Warm, dry. Intact. Extremities: 2+ radial pulses bilaterally. No lower extremity edema. Neuro: Awake, alert, oriented x3. No gross motor or sensory deficits. Cranial nerves II through XII intact. Gait not assessed. laboratory and microbiology Laboratory Tests 10/24/24 03:11 Test 10/24/24 03:11 Range/Units Serum Glucose 148 H 74-106 mg/dL Assessment/Plan Impression: Acute hypoxic respiratory failure Saddle pulmonary embolism DM type II Chronic obstructive pulmonary disease Congestive heart failure Colon cancer S/p hemicolectomy Morbid obesity, BMI 41.4 s/p Thrombectomy Events: Remains on supplemental O2, on 3 LPM Oxymizer. Continue to taper as tolerated Continue heparin drip for PE - transition to Eliquis as tolerated Patient is s/p thrombectomy by IR. Incentive spirometry Continue bronchodilators Monitor platelets - 88 k. Accu-Cheks, ISS. Labs and imaging reviewed. Rest of plan as noted below. Plan: Supplemental oxygen Titrate to keep O2 sats above 92%. Bronchodilators PRN. Heparin drip. S/p thrombectomy by IR. PRN morphine for pain control Avoid oversedation Monitor renal function. Monitor electrolytes. Supplement as necessary. Monitor ins and outs. Diet and lifestyle modifications for weight reduction Morbid obesity - complicates all care DVT prophylaxis. Prognosis: Poor given patient's multiple co-morbidities. Rest of plan per hospitalist and other consultants. Thank you Ivanna Redd NP, for allowing me to participate in this patient's care. Further recommendations will depend on the patient's clinical course. Please do not hesitate to contact me if you have any questions or concerns. This medical document was created using an electronic medical record system with [employer] dictation system. Although these documentations are being carefully reviewed, there may still be some phonetic and typographical changes. The errors are purely typographical, due to imperfection on the software program, and do not reflect any compromise in the patient's medical care. Dietary Evaluation Review Comments: Continue current plan of care Expected Outcomes/Goals: F/U in 3-5 days Plan discussed with: Patient, Other (RN) CARON LACY MD Oct 24, 2024 23:00
[2024-10-25] VITALS (18 sets, daily range): BP systolic 104–134; BP diastolic 59–87; PULSE 73–97; RESP 16–20; TEMP 97.9–98.3; O2SAT 86–100
[2024-10-25 03:52] LABS: Basophils # (auto) 0 10 ^3/uL (0-0.2); Basophils % (auto) 0.5 % (0.0-2.0); Eosinophils # (auto) 0.5 10 ^3/uL (0-0.8); Eosinophils % (auto) 6.5 % (0.0-7.0); Hematocrit 38.5 % (41.0-53.0); Hemoglobin 12.9 g/dL (13.5-17.5); Lymphocytes # (auto) 1.5 10 ^3/uL (0.4-5.4); Lymphocytes % (auto) 19.4 % (10.0-50.0); Mean Corpuscular Hemoglobin 31.5 pg (28.0-32.0); Mean Corpuscular Hgb Conc. 33.5 g/dL (32.0-36.0); Mean Corpuscular Volume 93.9 fL (80.0-100.0); Monocytes # (auto) 0.6 10 ^3/uL (0-1.3); Monocytes % (auto) 8.1 % (0.0-12.0); Neutrophils # (auto) 5.1 10 ^3/uL (1.6-8.6); Neutrophils % (auto) 65.5 % (37.0-80.0); Platelet Count (auto) 96 10^3/uL (140-450); Red Cell Distribution Width 14.6 % (11.8-14.3); White Blood Cell 7.8 10^3/uL (4.4-10.8)
[2024-10-25 04:22] LABS: INR 1.09 (0.9-1.15); Partial Thromboplastin Time 56.5 SEC (24.5-34.5); Prothrombin Time 11.5 sec (9.3-11.8)
--- NOTE | 2024-10-25 14:25 | DVHPN2 ---
Progress Note - Dictate Date Seen: Oct 25, 2024 Medical Necessity Reason Pt with a Central, PICC or Fol: No Subjective Patient was seen and evaluated in follow up. Patient has been downgraded. Patient denies any pain or discomfort. Patient remains on Heparin drip. vital signs Vital Sign Date Time Temp Pulse Resp B/P (MAP) Pulse Ox O2 Delivery O2 Flow Rate FiO2 10/25/24 11:53 83 18 100 10/25/24 11:47 Nasal Cannula* 2 28 10/25/24 08:39 98.2 128/87 (101) 98.2 Total Intake and Output 10/24/24 10/24/24 10/25/24 15:00 23:00 07:00 Intake Total 168 ml 863 ml 350 ml Output Total 500 ml Balance 168 ml 363 ml 350 ml medications Current Medications Medications Dose Ordered Sig/Rafeal Route Start Time Stop Time Status Last Admin Dose Admin Nitroglycerin 0.4 mg Q5MINP PRN SL 10/17/24 17:00 10/17/24 22:26 0.4 MG Morphine Sulfate 2 mg Q30M PRN IV 10/17/24 17:00 10/17/24 22:36 2 MG Ondansetron HCl 4 mg Q6HPRN PRN IV 10/17/24 20:00 Acetaminophen 650 mg Q6HPRN PRN PO 10/17/24 20:00 Acetaminophen/ Hydrocodone Bitart 1 tab Q6HPRN PRN PO 10/17/24 20:00 Diagnostic Test (Pha) 1 strip ACHS 10/17/24 22:00 10/25/24 06:19 1 STRIP Insulin Human Regular ACHS SC 10/17/24 22:00 10/25/24 06:19 3 UNITS Dextrose 50 ml UD PRN IV 10/17/24 20:00 Sennosides 8.6 mg QHSP PRN PO 10/17/24 20:15 Lorazepam 0.5 mg Q4HP PRN IV 10/18/24 08:15 10/24/24 20:14 0.5 MG Ipratropium [place] 0.5 mg Q6HPRN PRN NEB 10/21/24 12:30 10/25/24 11:47 0.5 MG Albuterol 2.5 mg Q6HWA NEB 10/21/24 12:30 10/25/24 11:47 2.5 MG Heparin Sodium/ Dextrose 250 ml @ 21 mls/hr [id number] IV 10/21/24 17:30 10/25/24 05:31 21 MLS/HR Alprazolam 0.25 mg BID PRN PO 10/22/24 16:15 Mycophenolate Mofetil 250 mg BID PO 10/23/24 22:00 10/25/24 10:00 250 MG Insulin Glargine 5 units HS SC 10/24/24 22:00 10/24/24 21:37 5 UNITS objective GENERAL: Awake, alert, oriented. LUNGS: Clear. CARDIOVASCULAR: Heart sounds are good. ABDOMEN: Soft. laboratory and microbiology Laboratory Tests 10/25/24 03:20 10/24/24 03:11 Test 10/24/24 03:11 Range/Units Serum Glucose 148 H 74-106 mg/dL Problem List Bilateral pulmonary embolism. Status post thrombectomy. Shortness of breath. Acute kidney injury. Elevated troponin level. Assessment/Plan Continued all current supportive medical care. Morphine and [place] for pain management. Heparin drip per pharmacy protocol. Diuretics with Lasix. Additional plan as per the hospital course. Dietary Evaluation Review Comments: Continue current plan of care Expected Outcomes/Goals: F/U in 3-5 days Plan discussed with: Patient LYNNE FU MD Oct 25, 2024 12:21
[2024-10-25] MEDS: ALPRAZolam 0.25 MG TAB PO PRN (17:54)
--- NOTE | 2024-10-25 19:57 | DVHPN2 ---
Progress Note - Dictate Date Seen: Oct 25, 2024 Medical Necessity Reason Pt with a Central, PICC or Fol: No Subjective He is clinically stable. Shortness for breath is improved. No complaints of chest pain. Ambulating. vital signs Vital Sign Date Time Temp Pulse Resp B/P (MAP) Pulse Ox O2 Delivery O2 Flow Rate FiO2 10/25/24 19:16 86 18 100 10/25/24 19:10 Nasal Cannula 2.0 10/25/24 19:10 28 10/25/24 17:00 97.9 134/86 (102) 97.9 Total Intake and Output 10/24/24 10/24/24 10/25/24 15:00 23:00 07:00 Intake Total 168 ml 863 ml 350 ml Output Total 500 ml Balance 168 ml 363 ml 350 ml medications Current Medications Medications Dose Ordered Sig/Rafael Route Start Time Stop Time Status Last Admin Dose Admin Nitroglycerin 0.4 mg Q5MINP PRN SL 10/17/24 17:00 10/17/24 22:26 0.4 MG Morphine Sulfate 2 mg Q30M PRN IV 10/17/24 17:00 10/17/24 22:36 2 MG Ondansetron HCl 4 mg Q6HPRN PRN IV 10/17/24 20:00 Acetaminophen 650 mg Q6HPRN PRN PO 10/17/24 20:00 Acetaminophen/ Hydrocodone Bitart 1 tab Q6HPRN PRN PO 10/17/24 20:00 Diagnostic Test (Pha) 1 strip ACHS 10/17/24 22:00 10/25/24 17:00 1 STRIP Insulin Human Regular ACHS SC 10/17/24 22:00 10/25/24 17:37 3 UNITS Dextrose 50 ml UD PRN IV 10/17/24 20:00 Sennosides 8.6 mg QHSP PRN PO 10/17/24 20:15 Lorazepam 0.5 mg Q4HP PRN IV 10/18/24 08:15 10/24/24 20:14 0.5 MG Ipratropium [place] 0.5 mg Q6HPRN PRN NEB 10/21/24 12:30 10/25/24 19:11 0.5 MG Albuterol 2.5 mg Q6HWA NEB 10/21/24 12:30 10/25/24 19:11 2.5 MG Heparin Sodium/ Dextrose 250 ml @ 21 mls/hr [id number] IV 10/21/24 17:30 10/25/24 17:56 21 MLS/HR Alprazolam 0.25 mg BID PRN PO 10/22/24 16:15 10/25/24 17:54 0.25 MG Mycophenolate Mofetil 250 mg BID PO 10/23/24 22:00 10/25/24 10:00 250 MG Insulin Glargine 5 units HS SC 10/24/24 22:00 10/24/24 21:37 5 UNITS objective Comfortable in bed without distress. HEENT neck supple no JVD. Heart regular rate and rhythm S1 and S2. Lungs without rales wheezes. Abdomen soft nontender positive bowel sounds. Extremities no edema positive pulses. laboratory and microbiology Laboratory Tests 10/25/24 03:20 10/24/24 03:11 Test 10/24/24 03:11 Range/Units Serum Glucose 148 H 74-106 mg/dL Assessment/Plan Continue current medications and treatment plan as he is on. We will transitioned to oral Eliquis in the next 24 hours. Otherwise continue rest of supportive care and treatment. Follow clinical management per clinical course. Problems(with codes): (1) Shortness of breath (2) Pulmonary embolism (3) Chest pain (4) Leg pain, right Dietary Evaluation Review Comments: Continue current plan of care Expected Outcomes/Goals: F/U in 3-5 days Plan discussed with: DHAVAL Qiu MD Oct 25, 2024 19:57
--- NOTE | 2024-10-25 23:06 | DVHPN2 ---
Progress Note - Dictate Date Seen: Oct 25, 2024 Medical Necessity Reason Pt with a Central, PICC or Fol: No Subjective Patient seen and examined at bedside. Remains on supplemental oxygen Overnight events reviewed. vital signs Vital Sign Date Time Temp Pulse Resp B/P (MAP) Pulse Ox O2 Delivery O2 Flow Rate FiO2 10/25/24 21:00 98.3 82 18 125/86 (99) 93 98.3 10/25/24 19:10 Nasal Cannula 2.0 10/25/24 19:10 28 Total Intake and Output 10/24/24 10/24/24 10/25/24 15:00 23:00 07:00 Intake Total 168 ml 863 ml 350 ml Output Total 500 ml Balance 168 ml 363 ml 350 ml medications Current Medications Medications Dose Ordered Sig/Rafael Route Start Time Stop Time Status Last Admin Dose Admin Nitroglycerin 0.4 mg Q5MINP PRN SL 10/17/24 17:00 10/17/24 22:26 0.4 MG Morphine Sulfate 2 mg Q30M PRN IV 10/17/24 17:00 10/17/24 22:36 2 MG Ondansetron HCl 4 mg Q6HPRN PRN IV 10/17/24 20:00 Acetaminophen 650 mg Q6HPRN PRN PO 10/17/24 20:00 Acetaminophen/ Hydrocodone Bitart 1 tab Q6HPRN PRN PO 10/17/24 20:00 Diagnostic Test (Pha) 1 strip ACHS 10/17/24 22:00 10/25/24 22:24 1 STRIP Insulin Human Regular ACHS SC 10/17/24 22:00 10/25/24 22:22 6 UNITS Dextrose 50 ml UD PRN IV 10/17/24 20:00 Sennosides 8.6 mg QHSP PRN PO 10/17/24 20:15 Lorazepam 0.5 mg Q4HP PRN IV 10/18/24 08:15 10/24/24 20:14 0.5 MG Ipratropium [place] 0.5 mg Q6HPRN PRN NEB 10/21/24 12:30 10/25/24 19:11 0.5 MG Albuterol 2.5 mg Q6HWA NEB 10/21/24 12:30 10/25/24 19:11 2.5 MG Heparin Sodium/ Dextrose 250 ml @ 21 mls/hr [id number] IV 10/21/24 17:30 10/25/24 17:56 21 MLS/HR Alprazolam 0.25 mg BID PRN PO 10/22/24 16:15 10/25/24 17:54 0.25 MG Mycophenolate Mofetil 250 mg BID PO 10/23/24 22:00 10/25/24 22:52 250 MG Insulin Glargine 5 units HS SC 10/24/24 22:00 10/25/24 22:24 5 UNITS Apixaban 10 mg BID PO 10/26/24 08:00 11/02/24 07:59 UNV objective Gen.: Patient lying in bed in no apparent distress. On supplemental oxygen. Head: Normocephalic, atraumatic. Eyes: EOMI/PERRLA. Ears: Normal hearing. Normal anatomy. Neck/trachea: Trachea midline, supple. Nose: Normal external anatomy. Mouth: Moist mucous membranes. Chest: Decreased air entry bilaterally. No wheezing or rhonchi. Cardiovascular: Positive S1, positive S2. Regular rate and rhythm. Abdomen: Positive bowel sounds in all 4 quadrants. Soft, non-tender, non- distended. : Deferred. Rectal: Deferred. Skin: Warm, dry. Intact. Extremities: 2+ radial pulses bilaterally. No lower extremity edema. Neuro: Awake, alert, oriented x3. No gross motor or sensory deficits. Cranial nerves II through XII intact. Gait not assessed. laboratory and microbiology Laboratory Tests 10/25/24 03:20 10/24/24 03:11 Test 10/24/24 03:11 Range/Units Serum Glucose 148 H 74-106 mg/dL Assessment/Plan Impression: Acute hypoxic respiratory failure [place] pulmonary embolism DM type II Chronic obstructive pulmonary disease Congestive heart failure Colon cancer S/p hemicolectomy Morbid obesity, BMI 41.4 s/p Thrombectomy Events: Remains on supplemental O2, on 2 LPM NC Continue to taper as tolerated Improved O2 requirements Continue Eliquis BID Incentive spirometry Continue bronchodilators Accu-Cheks, ISS. Disposition per hospitalist. Labs and imaging reviewed. Rest of plan as noted below. Plan: Supplemental oxygen Titrate to keep O2 sats above 92%. Bronchodilators PRN. Heparin drip. S/p thrombectomy by IR. PRN morphine for pain control Avoid oversedation Monitor renal function. Monitor electrolytes. Supplement as necessary. Monitor ins and outs. Diet and lifestyle modifications for weight reduction Morbid obesity - complicates all care DVT prophylaxis. Prognosis: Poor given patient's multiple co-morbidities. Rest of plan per hospitalist and other consultants. Thank you Ivanna Redd NP, for allowing me to participate in this patient's care. Further recommendations will depend on the patient's clinical course. Please do not hesitate to contact me if you have any questions or concerns. This medical document was created using an electronic medical record system with [employer] dictation system. Although these documentations are being carefully reviewed, there may still be some phonetic and typographical changes. The errors are purely typographical, due to imperfection on the software program, and do not reflect any compromise in the patient's medical care. Dietary Evaluation Review Comments: Continue current plan of care Expected Outcomes/Goals: F/U in 3-5 days Plan discussed with: Patient, Other (MERVIN Rodriguez) CARON LACY MD Oct 25, 2024 23:06
[2024-10-26] VITALS (17 sets, daily range): BP systolic 99–142; BP diastolic 64–95; PULSE 69–95; RESP 16–23; TEMP 97.4–98.8; O2SAT 92–98
[2024-10-26] MEDS ORDERED: APIXABAN 5 MG TAB PO SCH (08:00)
[2024-10-26 08:58] LABS: Basophils # (auto) 0.1 10 ^3/uL (0-0.2); Basophils % (auto) 0.8 % (0.0-2.0); Eosinophils # (auto) 0.3 10 ^3/uL (0-0.8); Eosinophils % (auto) 5.1 % (0.0-7.0); Hematocrit 41.5 % (41.0-53.0); Hemoglobin 13.7 g/dL (13.5-17.5); Lymphocytes # (auto) 1.2 10 ^3/uL (0.4-5.4); Lymphocytes % (auto) 17.5 % (10.0-50.0); Mean Corpuscular Hemoglobin 30.8 pg (28.0-32.0); Mean Corpuscular Volume 93.4 fL (80.0-100.0); Monocytes # (auto) 0.6 10 ^3/uL (0-1.3); Monocytes % (auto) 8.1 % (0.0-12.0); Neutrophils # (auto) 4.7 10 ^3/uL (1.6-8.6); Neutrophils % (auto) 68.5 % (37.0-80.0); Nucleated Red Blood Cells % 0.1 %; Platelet Count (auto) 105 10^3/uL (140-450); Red Blood Cells 4.45 10^6/uL (4.5-5.90); Red Cell Distribution Width 14.1 % (11.8-14.3); White Blood Cell 6.8 10^3/uL (4.4-10.8)
[2024-10-26 09:13] LABS: INR 1.08 (0.9-1.15); Partial Thromboplastin Time 28.5 SEC (24.5-34.5); Prothrombin Time 11.4 sec (9.3-11.8)
--- NOTE | 2024-10-26 09:29 | ECG ---
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
[2024-10-26] MEDS: APIXABAN 5 MG TAB PO ONE (13:49)
--- NOTE | 2024-10-26 16:38 | DVHPN2 ---
Progress Note - Dictate Date Seen: Oct 26, 2024 Medical Necessity Reason Pt with a Central, PICC or Fol: No Subjective Patient was seen and evaluated in follow up. Patient denies any current complaints. Patient is comfortable in bed. GLUC 162. vital signs Vital Sign Date Time Temp Pulse Resp B/P (MAP) Pulse Ox O2 Delivery O2 Flow Rate FiO2 10/26/24 13:06 98.1 79 20 119/85 (96) 95 98.1 10/26/24 07:46 Nasal Cannula* 3 32 Total Intake and Output 10/25/24 10/25/24 10/26/24 15:00 23:00 07:00 Intake Total 300 ml 2200 ml 300 ml Balance 300 ml 2200 ml 300 ml medications Current Medications Medications Dose Ordered Sig/Rafael Route Start Time Stop Time Status Last Admin Dose Admin Nitroglycerin 0.4 mg Q5MINP PRN SL 10/17/24 17:00 10/17/24 22:26 0.4 MG Morphine Sulfate 2 mg Q30M PRN IV 10/17/24 17:00 10/17/24 22:36 2 MG Ondansetron HCl 4 mg Q6HPRN PRN IV 10/17/24 20:00 Acetaminophen 650 mg Q6HPRN PRN PO 10/17/24 20:00 Acetaminophen/ Hydrocodone Bitart 1 tab Q6HPRN PRN PO 10/17/24 20:00 Diagnostic Test (Pha) 1 strip ACHS 10/17/24 22:00 10/26/24 11:30 1 STRIP Insulin Human Regular ACHS SC 10/17/24 22:00 10/26/24 11:30 3 UNITS Dextrose 50 ml UD PRN IV 10/17/24 20:00 Sennosides 8.6 mg QHSP PRN PO 10/17/24 20:15 Lorazepam 0.5 mg Q4HP PRN IV 10/18/24 08:15 10/24/24 20:14 0.5 MG Ipratropium [place] 0.5 mg Q6HPRN PRN NEB 10/21/24 12:30 10/25/24 19:11 0.5 MG Albuterol 2.5 mg Q6HWA NEB 10/21/24 12:30 10/26/24 07:46 2.5 MG Alprazolam 0.25 mg BID PRN PO 10/22/24 16:15 10/26/24 02:23 0.25 MG Mycophenolate Mofetil 250 mg BID PO 10/23/24 22:00 10/26/24 09:57 250 MG Insulin Glargine 5 units HS SC 10/24/24 22:00 10/25/24 22:24 5 UNITS Apixaban 10 mg BID PO 10/26/24 08:00 11/02/24 07:59 UNV objective GENERAL: Awake, alert, oriented. LUNGS: Clear. CARDIOVASCULAR: Heart sounds are good. ABDOMEN: Soft. laboratory and microbiology Laboratory Tests 10/26/24 08:48 10/24/24 03:11 Test 10/24/24 03:11 Range/Units Serum Glucose 148 H 74-106 mg/dL Problem List Bilateral pulmonary embolism. Status post thrombectomy. Shortness of breath. Acute kidney injury. Elevated troponin level. Assessment/Plan Continued all current supportive medical care. Morphine and [place] for pain management. Heparin drip per pharmacy protocol. Diuretics with Lasix. Additional plan as per the hospital course. Dietary Evaluation Review Comments: Continue current plan of care Expected Outcomes/Goals: F/U in 3-5 days Plan discussed with: Patient LYNNE FU MD Oct 26, 2024 13:36
--- NOTE | 2024-10-26 17:22 | DVHPN2 ---
Progress Note - Dictate Date Seen: Oct 26, 2024 Medical Necessity Reason Pt with a Central, PICC or Fol: No Subjective He is clinically stable. Anxious to go home. Apparently his oxygenation dipped below 90 with ambulation however recovered quickly with rest. vital signs Vital Sign Date Time Temp Pulse Resp B/P (MAP) Pulse Ox O2 Delivery O2 Flow Rate FiO2 10/26/24 16:55 97.8 95 23 119/81 (94) 95 97.8 10/26/24 16:00 Nasal Cannula* 2 28 Total Intake and Output 10/25/24 10/25/24 10/26/24 15:00 23:00 07:00 Intake Total 300 ml 2200 ml 300 ml Balance 300 ml 2200 ml 300 ml medications Current Medications Medications Dose Ordered Sig/Rafael Route Start Time Stop Time Status Last Admin Dose Admin Nitroglycerin 0.4 mg Q5MINP PRN SL 10/17/24 17:00 10/17/24 22:26 0.4 MG Morphine Sulfate 2 mg Q30M PRN IV 10/17/24 17:00 10/17/24 22:36 2 MG Ondansetron HCl 4 mg Q6HPRN PRN IV 10/17/24 20:00 Acetaminophen 650 mg Q6HPRN PRN PO 10/17/24 20:00 Acetaminophen/ Hydrocodone Bitart 1 tab Q6HPRN PRN PO 10/17/24 20:00 Diagnostic Test (Pha) 1 strip ACHS 10/17/24 22:00 10/26/24 11:30 1 STRIP Insulin Human Regular ACHS SC 10/17/24 22:00 10/26/24 11:30 3 UNITS Dextrose 50 ml UD PRN IV 10/17/24 20:00 Sennosides 8.6 mg QHSP PRN PO 10/17/24 20:15 Lorazepam 0.5 mg Q4HP PRN IV 10/18/24 08:15 10/24/24 20:14 0.5 MG Ipratropium [place] 0.5 mg Q6HPRN PRN NEB 10/21/24 12:30 10/26/24 13:52 0.5 MG Albuterol 2.5 mg Q6HWA NEB 10/21/24 12:30 10/26/24 13:52 2.5 MG Alprazolam 0.25 mg BID PRN PO 10/22/24 16:15 10/26/24 02:23 0.25 MG Mycophenolate Mofetil 250 mg BID PO 10/23/24 22:00 10/26/24 09:57 250 MG Insulin Glargine 5 units HS SC 10/24/24 22:00 10/25/24 22:24 5 UNITS Apixaban 10 mg Q12H PO 10/26/24 22:00 11/02/24 21:59 objective Comfortable in bed without distress. HEENT neck supple no JVD. Heart regular rate and rhythm S1 and S2. Lungs without rales wheezes. Abdomen soft nontender positive bowel sounds. Extremities no edema positive pulses. laboratory and microbiology Laboratory Tests 10/26/24 08:48 10/24/24 03:11 Test 10/24/24 03:11 Range/Units Serum Glucose 148 H 74-106 mg/dL Assessment/Plan Continue Eliquis starting today. DC IV heparin drip. We will arrange for 2 L home oxygen with activity. Encouraged elevating legs and Kin hoses thigh-high with activity. Otherwise continue rest of supportive care and treatment. Follow clinical management per clinical course. Discussed with the patient and nurse regarding care plan at bedside. Problems(with codes): (1) Leg pain, right (2) Pulmonary embolism Dietary Evaluation Review Comments: Continue current plan of care Expected Outcomes/Goals: F/U in 3-5 days Plan discussed with: Other DHAVAL MARQUEZ MD Oct 26, 2024 17:22
[2024-10-26] MEDS ORDERED: ALBUTEROL SULF 2.5 MG/0.5ML(0.5%) NEB SOLN NEB PRN (17:30)
[2024-10-26] MEDS: APIXABAN 5 MG TAB PO SCH (22:08)
--- NOTE | 2024-10-26 23:31 | DVHPN2 ---
Progress Note - Dictate Date Seen: Oct 26, 2024 Medical Necessity Reason Pt with a Central, PICC or Fol: No Subjective Patient seen and examined at bedside. Remains on supplemental oxygen Overnight events reviewed. vital signs Vital Sign Date Time Temp Pulse Resp B/P (MAP) Pulse Ox O2 Delivery O2 Flow Rate FiO2 10/26/24 21:00 97.4 83 20 142/88 (106) 92 97.4 10/26/24 16:00 Nasal Cannula* 2 28 Total Intake and Output 10/25/24 10/25/24 10/26/24 15:00 23:00 07:00 Intake Total 300 ml 2200 ml 300 ml Balance 300 ml 2200 ml 300 ml medications Current Medications Medications Dose Ordered Sig/Rafael Route Start Time Stop Time Status Last Admin Dose Admin Nitroglycerin 0.4 mg Q5MINP PRN SL 10/17/24 17:00 10/17/24 22:26 0.4 MG Morphine Sulfate 2 mg Q30M PRN IV 10/17/24 17:00 10/17/24 22:36 2 MG Ondansetron HCl 4 mg Q6HPRN PRN IV 10/17/24 20:00 Acetaminophen 650 mg Q6HPRN PRN PO 10/17/24 20:00 Acetaminophen/ Hydrocodone Bitart 1 tab Q6HPRN PRN PO 10/17/24 20:00 Diagnostic Test (Pha) 1 strip ACHS 10/17/24 22:00 10/26/24 22:08 1 STRIP Insulin Human Regular ACHS SC 10/17/24 22:00 10/26/24 22:18 3 UNITS Dextrose 50 ml UD PRN IV 10/17/24 20:00 Sennosides 8.6 mg QHSP PRN PO 10/17/24 20:15 Lorazepam 0.5 mg Q4HP PRN IV 10/18/24 08:15 10/24/24 20:14 0.5 MG Ipratropium [place] 0.5 mg Q6HPRN PRN NEB 10/21/24 12:30 10/26/24 13:52 0.5 MG Alprazolam 0.25 mg BID PRN PO 10/22/24 16:15 10/26/24 17:34 0.25 MG Mycophenolate Mofetil 250 mg BID PO 10/23/24 22:00 10/26/24 22:08 250 MG Insulin Glargine 5 units HS SC 10/24/24 22:00 10/26/24 22:21 5 UNITS Apixaban 10 mg Q12H PO 10/26/24 22:00 11/02/24 21:59 10/26/24 22:08 10 MG Albuterol 2.5 mg Q4HPRN PRN NEB 10/26/24 17:30 objective Gen.: Patient lying in bed in no apparent distress. On supplemental oxygen. Head: Normocephalic, atraumatic. Eyes: EOMI/PERRLA. Ears: Normal hearing. Normal anatomy. Neck/trachea: Trachea midline, supple. Nose: Normal external anatomy. Mouth: Moist mucous membranes. Chest: Decreased air entry bilaterally. No wheezing or rhonchi. Cardiovascular: Positive S1, positive S2. Regular rate and rhythm. Abdomen: Positive bowel sounds in all 4 quadrants. Soft, non-tender, non- distended. : Deferred. Rectal: Deferred. Skin: Warm, dry. Intact. Extremities: 2+ radial pulses bilaterally. No lower extremity edema. Neuro: Awake, alert, oriented x3. No gross motor or sensory deficits. Cranial nerves II through XII intact. Gait not assessed. laboratory and microbiology Laboratory Tests 10/26/24 08:48 10/24/24 03:11 Test 10/24/24 03:11 Range/Units Serum Glucose 148 H 74-106 mg/dL Assessment/Plan Impression: Acute hypoxic respiratory failure Saddle pulmonary embolism DM type II Chronic obstructive pulmonary disease Congestive heart failure Colon cancer S/p hemicolectomy Morbid obesity, BMI 41.4 s/p Thrombectomy Events: Remains on supplemental O2, on 3 LPM NC Continue to taper as tolerated Assess and arrange for home O2 Continue Eliquis BID Incentive spirometry Continue bronchodilators Accu-Cheks, ISS. On Cellcept for immunosuppression. Patient is stable for discharge from the pulmonary standpoint. Disposition per hospitalist. Labs and imaging reviewed. Rest of plan as noted below. Plan: Supplemental oxygen Titrate to keep O2 sats above 92%. Bronchodilators PRN. Heparin drip. S/p thrombectomy by IR. PRN morphine for pain control Avoid oversedation Monitor renal function. Monitor electrolytes. Supplement as necessary. Monitor ins and outs. Diet and lifestyle modifications for weight reduction Morbid obesity - complicates all care DVT prophylaxis. Prognosis: Poor given patient's multiple co-morbidities. Rest of plan per hospitalist and other consultants. Thank you Ivanna Redd, MATTHIEU, for allowing me to participate in this patient's care. Further recommendations will depend on the patient's clinical course. Please do not hesitate to contact me if you have any questions or concerns. This medical document was created using an electronic medical record system with Tracky dictation system. Although these documentations are being carefully reviewed, there may still be some phonetic and typographical changes. The errors are purely typographical, due to imperfection on the software program, and do not reflect any compromise in the patient's medical care. Dietary Evaluation Review Comments: Continue current plan of care Expected Outcomes/Goals: F/U in 3-5 days Plan discussed with: Patient, Other (RN) CARON LACY MD Oct 26, 2024 23:31
[2024-10-27] VITALS (11 sets, daily range): BP systolic 107–144; BP diastolic 77–101; PULSE 57–70; RESP 16–20; TEMP 97.8–98.5; O2SAT 90–95
[2024-10-27 10:40] LABS: Basophils # (auto) 0 10 ^3/uL (0-0.2); Basophils % (auto) 0.6 % (0.0-2.0); Eosinophils # (auto) 0.4 10 ^3/uL (0-0.8); Eosinophils % (auto) 6.2 % (0.0-7.0); Hematocrit 39.2 % (41.0-53.0); Lymphocytes % (auto) 15.3 % (10.0-50.0); Mean Corpuscular Hemoglobin 31.3 pg (28.0-32.0); Mean Corpuscular Hgb Conc. 33.2 g/dL (32.0-36.0); Mean Corpuscular Volume 94.3 fL (80.0-100.0); Monocytes # (auto) 0.5 10 ^3/uL (0-1.3); Monocytes % (auto) 7.9 % (0.0-12.0); Neutrophils # (auto) 4.4 10 ^3/uL (1.6-8.6); Platelet Count (auto) 110 10^3/uL (140-450); Red Blood Cells 4.16 10^6/uL (4.5-5.90); Red Cell Distribution Width 14.3 % (11.8-14.3); White Blood Cell 6.2 10^3/uL (4.4-10.8)
[2024-10-27 11:01] LABS: Chloride 105 mmol/L (98-107); Potassium 4.4 mmol/L (3.5-5.1); Sodium 139 mmol/L (136-145)
[2024-10-27 11:02] LABS: Anion Gap 8 (5-15); Calcium 9.8 mg/dL (8.7-10.4); Carbon Dioxide 26 mmol/L (20-31)
[2024-10-27 11:07] LABS: BUN/Creatinine Ratio 13.2 (10.0-20.0); Blood Urea Nitrogen 16 mg/dL (9-23); Glucose 236 mg/dL (74-106)
[2024-10-27] MEDS ORDERED: APIX5TAB PO (11:54)
--- NOTE | 2024-10-27 11:56 | DVHDS2 ---
Discharge Summary Date of Admission Oct 17, 2024 at 16:47 Date of Discharge: Oct 27, 2024 Labs/Diagnostic Data: Laboratory Results Test 10/27/24 10:53 10/27/24 10:21 10/26/24 08:48 10/24/24 03:11 POC Glucose 229 mg/dl (70-106) White Blood Count 6.2 10^3/uL (4.4-10.8) Red Blood Count 4.16 10^6/uL (4.5-5.90) Hemoglobin 13.0 g/dL (13.5-17.5) Hematocrit 39.2 % (41.0-53.0) Mean Corpuscular Volume 94.3 fL (80.0-100.0) Mean Corpuscular Hemoglobin 31.3 pg (28.0-32.0) Mean Corpuscular Hemoglobin Concent 33.2 g/dL (32.0-36.0) Red Cell Distribution Width 14.3 % (11.8-14.3) Platelet Count 110 10^3/uL (140-450) Mean Platelet Volume 10.9 fL (6.9-10.8) Neutrophils (%) (Auto) 70.0 % (37.0-80.0) Lymphocytes (%) (Auto) 15.3 % (10.0-50.0) Monocytes (%) (Auto) 7.9 % (0.0-12.0) Eosinophils (%) (Auto) 6.2 % (0.0-7.0) Basophils (%) (Auto) 0.6 % (0.0-2.0) Neutrophils # (Auto) 4.4 10 ^3/uL (1.6-8.6) Lymphocytes # (Auto) 1.0 10 ^3/uL (0.4-5.4) Monocytes # (Auto) 0.5 10 ^3/uL (0-1.3) Eosinophils # (Auto) 0.4 10 ^3/uL (0-0.8) Basophils # (Auto) 0 10 ^3/uL (0-0.2) Nucleated Red Blood Cells 0.0 % Sodium Level 139 mmol/L (136-145) Potassium Level 4.4 mmol/L (3.5-5.1) Chloride Level 105 mmol/L (98-107) Carbon Dioxide Level 26 mmol/L (20-31) Anion Gap 8 (5-15) Blood Urea Nitrogen 16 mg/dL (9-23) Creatinine 1.21 mg/dL (0.700-1.30) Glomerular Filtration Rate Calc 70 mL/min (>90) BUN/Creatinine Ratio 13.2 (10.0-20.0) Serum Glucose 236 mg/dL (74-106) Calcium Level 9.8 mg/dL (8.7-10.4) Prothrombin Time 11.4 sec (9.3-11.8) Prothrombin Time INR 1.08 (0.9-1.15) Activated Partial Thromboplast Time 28.5 SEC (24.5-34.5) Hemoglobin A1c 6.6 % A1C (<5.7) Test 10/23/24 03:21 10/20/24 19:30 10/20/24 17:59 10/19/24 01:50 Total Bilirubin 0.6 mg/dL (0.2-1.0) Aspartate Amino Transferase (AST) 22 U/L (13-40) Alanine Aminotransferase (ALT) 83 U/L (7-40) Alkaline Phosphatase 76 U/L (46-116) Total Protein 6.0 g/dL (5.7-8.2) Albumin 3.4 g/dL (3.2-4.8) Urine Creatinine 118.53 mg/dL (30.0-125.0) Urine Protein/Creatinine Ratio 0.41 Urine Sodium 101 mmol/L (40-220) Urine Total Protein 49.1 mg/dL (1-14) Phosphorus Level 2.9 mg/dL (2.4-5.1) Magnesium Level 2.3 mg/dL (1.6-2.6) Vitamin D 25-Hydroxy 32.2 ng/mL (30.0-100) Parathyroid Hormone (Intact) 100.0 pg/mL (18.4-80.1) Differential Total Cells Counted 100.0 (100) Neutrophils % (Manual) 73 (37.0-80.0) Band Neutrophils % (Manual) 2 Lymphocytes % (Manual) 19 (10.0-50.0) Monocytes % (Manual) 4 (0-12) Eosinophils % (Manual) 2 (0-7) Basophils % (Manual) 0 (0.0-2.0) Metamyelocytes % (manual) 0 Myelocytes % (Manual) 0 Promyelocytes % (Manual) 0 Blast Cells % (Manual) 0 Reactive Lymphocytes 0 Platelet Estimate Decreased Red Blood Cell Morphology Normal Test 10/19/24 00:20 10/18/24 03:20 10/18/24 00:31 10/17/24 14:25 Troponin I High Sensitivity 250 ng/L (</=54) Large Platelets Few B-Type Natriuretic Peptide 682.11 pg/mL (0-100) Blood Gas Specimen Type Arterial Blood Gas Sample Site Left radial Blood Gas Patient Temperature 37.0 Arterial Blood Date Drawn [id number] Arterial Blood pH 7.404 (7.350-7.450) Arterial Blood Partial Pressure CO2 29.1 mmHg (35.0-48.0) Arterial Blood Partial Pressure O2 67.5 mmHg (83.0-108.0) Arterial Blood HCO3 17.8 mmol/L (21.0-28.0) Arterial Blood Oxygen Saturation 92.0 % (94.0-98.0) Arterial Blood Base Excess -5.2 mmol/L (-2.0-3.0) Arterial Blood Oxyhemoglobin 91.4 % (94.0-98.0) Arterial Blood Carboxyhemoglobin 0.5 % (0.5-1.5) Arterial Blood Methemoglobin 0.1 % (0.0-1.5) [place] Test Yes Blood Gas Total Hemoglobin 17.00 g/dL (13.5-17.5) Blood Gas Liter Flow 15.00 Blood Gas Modality Mask - nrb FiO2 % 100.0 Specimen Drawn By Blood Gas Notified Time [id number] Blood Gas Notified By Lactic Acid Level 2.8 mmol/L (0.4-2.0) Test 10/17/24 14:03 10/17/24 11:30 Urine Color Yellow (Yellow) Urine Clarity Clear (Clear) Urine pH 6.0 (5.0-9.0) Urine Specific [place] > 1.035 (1.001-1.035) Urine Protein 3+ (Negative) Urine Ketones Negative (Negative) Urine Blood 1+ /uL (Negative) Urine Nitrite Negative (Negative) Urine Bilirubin Negative (Negative) Urine Urobilinogen Normal mg/dL (Negative) Urine Leukocyte Esterase Negative /uL (Negative) Urine RBC 5 /hpf (0 - 3) Urine WBC 5 /hpf (0 - 3) Urine Squamous Epithelial Cells Few /hpf (<5) Urine Bacteria Few /hpf (None Seen) Urine Hyaline Casts Few /lpf (0 - 2) Urine Mucus Few (None Seen) Urine Glucose Trace mg/dL (Normal) D-Dimer, Quantitative 23.87 mg/L FEU (0.0-0.49) C-Reactive Protein High Sensitivity 1.22 mg/dL (<1.0) Thyroid Stimulating Hormone (TSH) 2.39 uIU/mL (0.55-4.78) Other Laboratory Tests 10/27/24 10:21 Brief Hx & Hospital Course: Mr. Zoe Collado is a 54 yo male with a history of COPD, CHF, DM, hypertension, colectomy , colon CA who presents with shortness of breath. Patient was found to have a Saddle Pulmonary embolism , patient was taken to photo lab manager by IR for thrombectomy. Patient in ICU status post thrombectomy. Patient reports chest pain, tachypnea. Patient was seen by cardiology in ICU. Patient is admitted and noted to have a significant pulmonary embolism felt probably secondary to his morbid obesity. Patient also had a DVT. Patient had a thrombectomy x2. Patient received IV anticoagulation subsequently transitioned to oral anticoagulation. Overall patient is clinically stabilized. He is ambulating. However he does require 1-2 L of oxygen with ambulation to keep oxygen above 93%. Patient is not having chest pain or shortness for breath symptoms. Rest of his review of symptoms normal. Given overall patient is clinically stable it is felt he could be safely discharged home with oral anticoagulation oxygen. Patient highly encouraged and counseled at length regarding diet exercise and weight loss and to minimize further risks of pulmonary embolism and sudden . Patient verbalized understanding of this, verbalized understanding of his hospital diagnosis, procedure he was done, medications received, discharge medicines and agree with the discharge follow-up plan of care. Consults/Reason for consult XY PERC.ARTERIAL THROMBECTOMY, HISTORY: SADDLE PE THROMBECTOMY PROCEDURE: Informed consent was obtained previously in clinic. The patient was placed supine on the interventional table. The right groin was prepped with chlorhexidine which was allowed to dry and draped in sterile fashion. Time out was performed. IV sedation and 1% local lidocaine were administered. With real- time US, a micropuncture kit was entered into the right common femoral vein, an image documenting patency was sent to PACS, and a 6 [place] vascular sheath was placed. Venogram confirms location of the sheath. Over a guide wire, a pigtail catheter was placed in the main pulmonary artery. PA pressure and pulmonary arteriogram were obtained. 5000 total units of heparin were administered IV. A glidewire advantage was then used though the pigtail catheter and placed into the right pulmonary artery. The pigtail was removed over the wire and a 5 Fr angled glidecath was placed into the right pulmonary artery. An amplatz wire was placed into the right pulmonary artery and the glide catheter was removed. The groin sheath was removed and the venotomy was serially dilated. A 26 Fr Inari sheath was advanced over the wire into the IVC. Then, the 24 Fr Inari FlowTriever device was navigated into the right pulmonary artery. A manual aspiration was performed x2. Blood was returned to the patient. During manual aspiration, due to the forces, the wire was retracted. The FlowTriever device was then removed from the body. Flushes through the FlowTriever device revealed a large thrombus and a digital image was obtained. The heart rate decreased from 120s to 100s, oxigenation increased, and blood pressure increased from 80-90s to 100-110s systolic. Additional attempts to place the angled pigtail catheter into the pulmonary artery was unsuccessful. Completion images or pressures were therefore unable to be obtained. The groin sheath was removed and a flow stasis device was placed. Hemostasis was obtained with manual compression. FLUOROSCOPY TIME: 17.5 minutes. DAP 9653 CONTRAST USED:55 mL. SEDATION: Dr. Ellyn Sherwood was personally responsible for the administration of moderate sedation during the procedure performed, including the use of an independent trained observer who had no other duties during the procedure. The drugs utilized were IV fentanyl and versed (see nursing log for details). The total time of supervision by the attending physician was approximately 120 minutes. FINDINGS: Initial pulmonary angiogram reveals large bilateral pulmonary embolus in the right and left pulmonary arteries. Initial pulmonary artery pressure: 66/31 (44) mm Hg IMPRESSION: Large bilateral pulmonary embolus status post mechanical thrombectomy of the right and possibly saddle pulmonary embolus. The left pulmonary embolus was unable to be removed. Elevated pulmonary arterial pressure measurement. PLAN: Continue heparin gtt. Neurovascular checks q1hrs. ICU admission. Right leg straight for 2 hours. Ok to resume a diet. Continue supplemental oxygen. Follow up CTPA in next few days. ATED BY: GONZALEZ SHERWOOD MD DICTATED DATE/TIME: 10/17/242004 Operations or Procedures EXAM: LIMITED Two-dimensional echocardiogram. Blood Pressure: 104/89 mmHg INDICATION Saddle PE RISK FACTORS Height: 5' 11", Weight: 293 DIMENSIONS LVDd 4.0 (3.8-5.7cm) LA (2D) (1.9-4.0cm) Aortic Root (2.0-3.7cm) LVDs 3.2 (2.5-4.0cm) LA (MM) (1.9-4.0cm) Aortic Cusp Exc (1.5- 2.0cm) EF (%) 40.0 (55-70%) Rt. Atrium (1.9-4.0cm) Asc. Aorta cm IVSd 1.5 (0.7-1.1cm) RV (D) (1.8-2.4cm) PWd 1.4 (0.7-1.1cm) Mitral Valve Mitral Mitral Stenosis E/A ratio 0.0 2D MVA cm2 Tricuspid Valve TR Velocity 4.00m/s RVSP 86mmHg Other Information Quality : Technically Limited Rhythm : Technically limited study due to body habitus. Conclusion 1. REMARKABLY DILATED RV AND RA 2. SEVERE HYPOKINESIS OF RV 3. NO MORE ECHOGENIC STRUCTURE IN RV AND RA 4. HYPOKINESIS OF RV IS NOT IMPROVED COMPARED WITH STUDY OF 10/17/24 5. LV CAVITY HAS BECOME REMARKABLY SMALLER DUE TO SIGNIFICANT RV DILATATION 6. NORMAL VALVES 7. NO EFFUSION 8. LV IS HYPERDYNAMIC AND EF IS 75% PLUS WITH DYSKINESIS OF IVS 9. CRITICAL PULMONARY HYPERTENSION ,RVSP IS 86 MM OF HG AND IS EXREMELY HIGH 10. STUDY CONFIRM CRITICAL RV FAILURE SIGNED BY: LYNNE FU MD SIGNED DATE/TIME: 10/18/24 8817 Condition at Discharge: Stable Final Diagnosis/Problems List acute Pulmonary Embolism Secondary Diagnosis: Morbid obesity BMI 40 Discharge Disposition: Home Discharge Instruct/Medications Diet: Consistent carbohydrate, Cardiac 2g Na,low cholest Activity: No Restrictions, As Tolerated Activity comment: No vigarous/strenuous activity or exercises for next 2 weeks. Follow Up/Referral: PCP after 2 weeks follow up for pulmonary embolism/dvt leg. Medications: as prescribed and home meds per discharge list New Medications: Apixaban Base (Eliquis) 5 Mg Tab 5 MG PO BID, #120 TAB 1 Refill take 2 tablets (10mg) twice a day for first 7 days then take one tablet (5mg) twice a day Continued Medications: Carvedilol (Carvedilol) 6.25 Mg Tab 1 TAB PO BID for 90 Days, #180 Fluticasone-Salmeterol (Wixela Inhub 500-50 Mcg/Dose) 1 Aer Aer 1 PUFF IN BID for 30 Days, #60 Glipizide (Glipizide) 10 Mg Tab 20 MG PO BIDAC for 30 Days, MG Montelukast Sodium (Montelukast Sodium) 10 Mg Tab 1 TAB PO DAILY, #30 TAB 5 Refills Mycophenolate Mofetil (Cellcept) 250 Mg Cap 250 MG PO BID, CAP Sacubitril-Valsartan (Entresto 97-103 mg) 1 Tab Tab 1 TAB PO BID, TAB Sitagliptin Phosphate (Januvia) 100 Mg Tab 1 TAB PO DAILY for 90 Days, #90 Discontinued Medications: Amlodipine Besylate (Amlodipine Besylate) 10 Mg Tab 1 TAB PO QAM for 90 Days, #90 Discharge Statement: "Patient was advised to return to the ER or call 911 if any headaches, dizziness, shortness of breath, chest pain, abdominal pain, bleeding, fevers, or worsening of medical condition. Patient was counseled about treatment plan, medications, possible side effects, patientverbalized understanding. All questions were answered to the best of my ability. This discharge took greater then 30 minutes in planning, reviewing documentation, counseling the patient, and discussing with other team members." ASSESSMENT ASSESSMENT Assessment acute Pulmonary Embolism DHAVAL MARQUEZ MD Oct 27, 2024 11:56
--- NOTE | 2024-10-27 18:25 | DVHPN2 ---
Progress Note - Dictate Date Seen: Oct 27, 2024 Medical Necessity Reason Pt with a Central, PICC or Fol: No Subjective Patient was seen and evaluated in follow up. Patient has no new complaints at this time. Patient denies any cardiac symptoms. Patient is cardiac stable for discharge. vital signs Vital Sign Date Time Temp Pulse Resp B/P (MAP) Pulse Ox O2 Delivery O2 Flow Rate FiO2 10/27/24 16:00 18 93 Nasal Cannula* 3 32 10/27/24 13:00 98.5 64 122/77 (92) 98.5 Total Intake and Output 10/26/24 10/26/24 10/27/24 15:00 23:00 07:00 Intake Total 300 ml 1090 ml 800 ml Balance 300 ml 1090 ml 800 ml objective GENERAL: Awake, alert, oriented. LUNGS: Clear. CARDIOVASCULAR: Heart sounds are good. ABDOMEN: Soft. laboratory and microbiology Laboratory Tests 10/27/24 10:21 Test 10/27/24 10:21 Range/Units Serum Glucose 236 H 74-106 mg/dL Problem List Bilateral pulmonary embolism. Status post thrombectomy. Shortness of breath. Acute kidney injury. Elevated troponin level. Assessment/Plan Continued all current supportive medical care. Morphine and [place] for pain management. Heparin drip per pharmacy protocol. Diuretics with Lasix. Additional plan as per the hospital course. Dietary Evaluation Review Comments: Continue current plan of care Expected Outcomes/Goals: F/U in 3-5 days Plan discussed with: Patient LYNNE FU MD Oct 27, 2024 18:25
--- NOTE | 2024-10-27 21:49 | DVHPN2 ---
Progress Note - Dictate Date Seen: Oct 27, 2024 Medical Necessity Reason Pt with a Central, PICC or Fol: No Subjective Patient seen and examined at bedside. Remains on supplemental oxygen Overnight events reviewed. vital signs Vital Sign Date Time Temp Pulse Resp B/P (MAP) Pulse Ox O2 Delivery O2 Flow Rate FiO2 10/27/24 16:00 18 93 Nasal Cannula* 3 32 10/27/24 13:00 98.5 64 122/77 (92) 98.5 Total Intake and Output 10/26/24 10/26/24 10/27/24 15:00 23:00 07:00 Intake Total 300 ml 1090 ml 800 ml Balance 300 ml 1090 ml 800 ml objective Gen.: Patient lying in bed in no apparent distress. On supplemental oxygen. Head: Normocephalic, atraumatic. Eyes: EOMI/PERRLA. Ears: Normal hearing. Normal anatomy. Neck/trachea: Trachea midline, supple. Nose: Normal external anatomy. Mouth: Moist mucous membranes. Chest: Decreased air entry bilaterally. No wheezing or rhonchi. Cardiovascular: Positive S1, positive S2. Regular rate and rhythm. Abdomen: Positive bowel sounds in all 4 quadrants. Soft, non-tender, non- distended. : Deferred. Rectal: Deferred. Skin: Warm, dry. Intact. Extremities: 2+ radial pulses bilaterally. No lower extremity edema. Neuro: Awake, alert, oriented x3. No gross motor or sensory deficits. Cranial nerves II through XII intact. Gait not assessed. laboratory and microbiology Laboratory Tests 10/27/24 10:21 Test 10/27/24 10:21 Range/Units Serum Glucose 236 H 74-106 mg/dL Assessment/Plan Impression: Acute hypoxic respiratory failure Saddle pulmonary embolism DM type II Chronic obstructive pulmonary disease Congestive heart failure Colon cancer S/p hemicolectomy Morbid obesity, BMI 41.4 s/p Thrombectomy Events: Remains on supplemental O2, on 3 LPM NC Continue to taper as tolerated Assess and arrange for home O2 Continue Eliquis BID for PE. PE is provoked - complete 6 months of Eliquis. Incentive spirometry Continue bronchodilators On Cellcept for immunosuppression. Patient is stable for discharge from the pulmonary standpoint. Follow up as outpatient in Pulmonary Clinic in 2-3 weeks. Disposition per hospitalist. Labs and imaging reviewed. Rest of plan as noted below. Plan: Supplemental oxygen Titrate to keep O2 sats above 92%. Bronchodilators PRN. Heparin drip. S/p thrombectomy by IR. PRN morphine for pain control Avoid oversedation Monitor renal function. Monitor electrolytes. Supplement as necessary. Monitor ins and outs. Diet and lifestyle modifications for weight reduction Morbid obesity - complicates all care DVT prophylaxis. Prognosis: Poor given patient's multiple co-morbidities. Rest of plan per hospitalist and other consultants. Thank you Ivanna Redd, MATTHIEU, for allowing me to participate in this patient's care. Further recommendations will depend on the patient's clinical course. Please do not hesitate to contact me if you have any questions or concerns. This medical document was created using an electronic medical record system with [employer] dictation system. Although these documentations are being carefully reviewed, there may still be some phonetic and typographical changes. The errors are purely typographical, due to imperfection on the software program, and do not reflect any compromise in the patient's medical care. Dietary Evaluation Review Comments: Continue current plan of care Expected Outcomes/Goals: F/U in 3-5 days Plan discussed with: Patient, Other (MERVIN Zapata) CARON LACY MD Oct 27, 2024 21:49
--- NOTE | 2024-11-11 13:03 | DVH ---
CL SC INJ VENOGRAM EXTREMTY BI, HISTORY: Pulmonary Embolus thrombectomy. PROCEDURE: The patient was placed supine on the interventional table. The right groin was prepped with chlorhexidine which was allowed to dry and draped in sterile fashion. Time out was performed. IV sedation and 1% local lidocaine were administered. With real-time US, a micropuncture kit was entered into the right common femoral vein, an image documenting patency was sent to PACS, and a 6 Lao vascular sheath was placed. Venogram confirms location of the sheath. Over a guide wire, the 26 Fr Inari sheath was advanced over the wire into the IVC. Dr. Awilda Diane then joined the case and actively participated during the procedure. Then, the 4 Fr angled pigtail catheter was used to navigate into the main pulmonary artery and pressure measurements were then obtained. ACT was 260. An amplatz guidewire was used to select the left pulmonary artery and then the 24 Fr Inari FlowTriever device was navigated into the main pulmonary artery. A 20 Fr curved Inari FlowTriever device was then placed through the 24 Fr into the left pulmonary artery. Multiple aspiration was then performed and blood returned to the patient using the FlowSaver device. The catheter was then navigated to the right pulmonary artery and multiple aspiration was performed. Pressure measurements were then obtained and a completion pulmonary angiogram was performed through the aspiration catheter. The groin sheath was removed and a flow stasis device was placed. Hemostasis was obtained with manual compression. FLUOROSCOPY TIME: 28.9 minutes. DAP 8942 CONTRAST USED: 100 mL . Blood loss: 100 mL SEDATION: Dr. Ellyn Sherwood was personally responsible for the administration of moderate sedation during the procedure performed, including the use of an independent trained observer who had no other duties during the procedure. The drugs utilized were IV fentanyl and versed (see nursing log for details). The total time of supervision by the attending physician was approximately 120 minutes. FINDINGS: Initial pulmonary angiogram reveals thrombus in the right and left pulmonary arteries. After thrombectomy removal of thrombus from the left pulmonary artery and right right truncus pulmonary artery. However some thrombus remains in the left and right pulmonary arteries. Pulmonary artery pressure measurements: Pre: 66/27 (39) Post: 55/21 (35) IMPRESSION: Pulmonary embolus in the bilateral pulmonary arteries status post mechanical thrombectomy of the bilateral pulmonary arteries with removal of thrombus. However some thrombus remains in the bilateral pulmonary arteries and was unable to be completely removed. Improved perfusion throughout the lungs with persistent decreased perfusion to the right lower lobe. Decreased pulmonary artery pressures, as above. PLAN: Clinical and imaging follow up with IR. SUPPLIES SALESPERSON GAYATRI
== END 2024-10-27 17:36 | disposition home health service (06) | DRG 163 ==
LOC: ER 11:03 → EDBD 11:03 → TELE 16:47 → ICU WEST 18:00 → TELE-WESTW 10-24 18:19 → TELE-EAST 10-26 02:00
PROVIDERS: ADMIT Radiology Diagnostic Radiology; ATTEND Hospitalist
PROC: 02CQ3ZZ Extirpation of Matter from Right Pulmonary Artery, Percutaneous Approach (ICD-10-PCS; principal; 2024-10-17)
PROC: B31S1ZZ Fluoroscopy of Right Pulmonary Artery using Low Osmolar Contrast (ICD-10-PCS; 2024-10-17)
PROC: B31T1ZZ Fluoroscopy of Left Pulmonary Artery using Low Osmolar Contrast (ICD-10-PCS; 2024-10-17)
PROC: 5A0945A Assistance with Respiratory Ventilation, 24-96 Consecutive Hours, High Flow/Velocity Cannula (ICD-10-PCS; 2024-10-19)
PROC: 02CQ3ZZ Extirpation of Matter from Right Pulmonary Artery, Percutaneous Approach (ICD-10-PCS; 2024-10-22)
PROC: 02CR3ZZ Extirpation of Matter from Left Pulmonary Artery, Percutaneous Approach (ICD-10-PCS; 2024-10-22)
DX: I26.92 Saddle embolus of pulmonary artery without acute cor pulmonale (principal); I50.43 Acute on chronic combined systolic (congestive) and diastolic (congestive) heart failure; J96.01 Acute respiratory failure with hypoxia; N17.0 Acute kidney failure with tubular necrosis; I82.401 Acute embolism and thrombosis of unspecified deep veins of right lower extremity; Z68.41 Body mass index [BMI] 40.0-44.9, adult; E11.9 Type 2 diabetes mellitus without complications; E66.01 Morbid (severe) obesity due to excess calories; F41.9 Anxiety disorder, unspecified; I11.0 Hypertensive heart disease with heart failure; I27.21 Secondary pulmonary arterial hypertension; I50.9 Heart failure, unspecified; J44.9 Chronic obstructive pulmonary disease, unspecified; D72.829 Elevated white blood cell count, unspecified; Z82.49 Family history of ischemic heart disease and other diseases of the circulatory system; Z79.01 Long term (current) use of anticoagulants; Z79.624 Long term (current) use of inhibitors of nucleotide synthesis; Z88.8 Allergy status to other drugs, medicaments and biological substances; Z90.49 Acquired absence of other specified parts of digestive tract; Z85.038 Personal history of other malignant neoplasm of large intestine; Z79.4 Long term (current) use of insulin; Z79.84 Long term (current) use of oral hypoglycemic drugs; Z79.899 Other long term (current) drug therapy
CPT/HCPCS: 36005; 36415; 36600; 37184; 71045; 71275; 75743; 76775; 76937; 80048; 80053; 81001; 82306; 82570; 82805; 82962; 83036; 83605; 83735; 83880; 83970; 84100; 84156; 84300; 84443; 84484; 85007; 85025; 85027; 85379; 85610; 85730; 86141; 87040; 87081; 93005; 93306; 93970; 94640; 96365; 96375; 97110; 97116; 97162; 97530; 99152; 99291; C1769; C1894; G0378; J1815; J2250; J2543; J7517; Q9967

== ENCOUNTER 2024-12-02 22:09 | Inpatient (IN) | payer BC ==
[~2024-12-02] VITALS: Ht 180.3 cm; Wt 104.6 kg
[~2024-12-02 22:09] MED LIST changes: +APIX5TAB PO; +AZIT-43 PO; +GLIP10TA9 PO; +IPRA0.00 NEB; +METF-370 PO; +METH4PAK3 PO; +MONT-8 PO; +MYCO500T3 PO; +SACU1TAB4 PO; +SEMA7TAB2 PO
--- NOTE | 2024-12-02 22:34 | ED.PDOC ---
GI ASSESSMENT HPI Comments HPI: Poor Historian. 54-year-old male presents to our department for one day history of rectal bleeding started today. Patient is on Eliquis for history of a saddle massive PE diagnosed few weeks ago.. Patient is status post colon cancer resection September 10 at [facility]. Patient did not take any of his medications today including hypertension medications. Patient showed me pictures on his smart phone of the bleeding. Past Medcial History: Hypertension, autoimmune liver disease, COPD, CHF Past Surgical History: Colon resection REVIEW OF SYSTEMS: CONSTITUTIONAL: Denies acute: fever, diaphoresis, chills, generalized weakness. HEAD: Denies acute: headache, photophobia Eyes: Denies acute: Double vision, vision loss, eye pain, eye discharge. EARS: Denies acute: tinnitus, hearing loss, ear discharge, ear pain, THROAT: Denies acute: sore throat, swelling, difficulty swallowing , pain with swallowing, change in voice. NECK: Denies acute: neck pain, neck swelling, stiff neck. HEART: Denies acute : chest pain, palpitations, LUNGS: Denies acute: SOB, wheezing, cough, hemoptysis ABDOMEN: Denies acute: abdominal pain, Nausea, Vomiting, melena , hematemesis, SKIN: Denies acute: rash, redness, lesions, itchiness. EXTREMITIES: Denies acute: calf pain, numbness, tingling, weakness, denies pain in extremity. Denies acute: Low back pain. Neuro: Denies acute: focal neurological deficit, motor or sensory focal neurological deficit, tremors, seizure like activity, confusion, dizziness, change in mental status, loss of bowel or bladder function, cauda equina like symptoms. : Denies acute: dysuria, hematuria, flank pain, increase in urinary frequency. PSYCH: Denies acute: hallucination, suicidal ideation, homicidal ideation. PHYSICAL EXAM: General: no acute distress, awake and alert. Head: normocephalic, atraumatic. Neck: supple, trachea is midline, no swelling. Throat: Normal phonation. Eyes:, no erythema, no purulent discharge, no proptosis, no icterus. Heart: regular tachycardic, no significant murmur appreciated. Lungs: no apparent respiratory distress, Able to speak in full sentences. No wheezing, no rhonchi, no crackles. No stridors Clear to auscultation bilaterally. Abdomen: non tender to palpation, non distended, soft, no guarding, no rebound, + bowel sounds. Obese. Neuro: Awake, Alert, oriented to name, self, situation, follows commands GCS=15. Speech is normal. Skin: no petechia, no purpura, no cyanosis, non-pale, not jaundice. Lower extremities: --trace bilateral - Pitting edema no deformity, no focal swelling, no calf TTP. Makes eye contact. moves all four extremities. Face: no apparent facial droop. Ambulating in the ED independently. Chief Complaint: GI Bleed Time Seen by MD: 22:11 Primary Care Provider: YONATHAN Reviewed Notes: Nurses Notes, Allergies Allergies: Coded Allergies: Prednisone (Verified Allergy, Unknown, 10/18/24) Home Meds Active Scripts Apixaban Base (ELIQUIS) 5 Mg Tab, 5 MG PO BID, #120 TAB 1 Refill take 2 tablets (10mg) twice a day for first 7 days then take one tablet (5mg) twice a day Prov:DHAVAL MARQUEZ MD 10/27/24 Reported Medications Fluticasone-Salmeterol (Wixela Inhub 500-50 Mcg/Dose) 1 Aer Aer, 1 PUFF IN BID for 30 Days, #60 10/21/24 Sitagliptin Phosphate (Januvia) 100 Mg Tab, 1 TAB PO DAILY for 90 Days, #90 10/21/24 Carvedilol (Carvedilol) 6.25 Mg Tab, 1 TAB PO BID for 90 Days, #180 10/21/24 Mycophenolate Mofetil (Cellcept) 250 Mg Cap, 250 MG PO BID, CAP 10/20/24 Sacubitril-Valsartan (Entresto 97-103 mg) 1 Tab Tab, 1 TAB PO BID, TAB 10/20/24 Montelukast Sodium (MONTELUKAST SODIUM) 10 Mg Tab, 1 TAB PO DAILY, #30 TAB 5 Refills 10/20/24 Glipizide (Glipizide) 10 Mg Tab, 20 MG PO BIDAC for 30 Days, MG 10/20/24 Information Source: Patient Mode of Arrival: Ambulatory X-Ray, Labs, Meds, VS Vital Signs Date Time Temp Pulse Resp B/P (MAP) Pulse Ox O2 Delivery O2 Flow Rate FiO2 12/02/24 23:10 124 15 95 Room Air* 0 21 12/02/24 23:10 124 15 154/116 (129) 95 12/02/24 22:15 97.9 124 15 154/116 (129) 95 Lab Test 12/03/24 00:41 12/02/24 22:49 Range/Units Lactic Acid Level 2.8 *H 3.0 *H 0.4-2.0 mmol/L White Blood Count 12.2 H 4.4-10.8 10^3/uL Red Blood Count 5.56 4.5-5.90 10^6/uL Hemoglobin 17.0 13.5-17.5 g/dL Hematocrit 51.6 41.0-53.0 % Mean Corpuscular Volume 92.8 80.0-100.0 fL Mean Corpuscular Hemoglobin 30.5 28.0-32.0 pg Mean Corpuscular Hemoglobin Concent 32.9 32.0-36.0 g/dL Red Cell Distribution Width 14.2 11.8-14.3 % Platelet Count 211 140-450 10^3/uL Mean Platelet Volume 9.7 6.9-10.8 fL Neutrophils (%) (Auto) 83.6 H 37.0-80.0 % Lymphocytes (%) (Auto) 11.3 10.0-50.0 % Monocytes (%) (Auto) 4.8 0.0-12.0 % Eosinophils (%) (Auto) 0.0 0.0-7.0 % Basophils (%) (Auto) 0.3 0.0-2.0 % Neutrophils # (Auto) 10.2 H 1.6-8.6 10 ^3/uL Lymphocytes # (Auto) 1.4 0.4-5.4 10 ^3/uL Monocytes # (Auto) 0.6 0-1.3 10 ^3/uL Eosinophils # (Auto) 0 0-0.8 10 ^3/uL Basophils # (Auto) 0 0-0.2 10 ^3/uL Nucleated Red Blood Cells 0.0 % Prothrombin Time 10.3 9.3-11.8 sec Prothrombin Time INR 0.95 0.9-1.15 Activated Partial Thromboplast Time 30.8 24.5-34.5 SEC Sodium Level 141 136-145 mmol/L Potassium Level 4.2 3.5-5.1 mmol/L Chloride Level 107 98-107 mmol/L Carbon Dioxide Level 20 20-31 mmol/L Anion Gap 14 5-15 Blood Urea Nitrogen 19 9-23 mg/dL Creatinine 1.19 0.700-1.30 mg/dL Glomerular Filtration Rate Calc 72 >90 mL/min BUN/Creatinine Ratio 16.0 10.0-20.0 Serum Glucose 315 H 74-106 mg/dL Calcium Level 10.9 H 8.7-10.4 mg/dL Total Bilirubin 0.4 0.2-1.0 mg/dL Aspartate Amino Transferase (AST) 16 13-40 U/L Alanine Aminotransferase (ALT) 28 7-40 U/L Alkaline Phosphatase 88 46-116 U/L Troponin I High Sensitivity 6 </=54 ng/L Total Protein 8.5 H 5.7-8.2 g/dL Albumin 4.9 H 3.2-4.8 g/dL Current Medications Medications (Trade) Dose Ordered Sig/Rafael Route Start Time Stop Time Status Last Admin Pantoprazole Sodium (Protonix) 40 mg ONCE ONCE IV 12/02/24 22:30 12/02/24 22:31 DC 12/02/24 23:06 [place] [address] Ph: [phone] DIAGNOSTIC IMAGING Diagnostic Imaging Report : [id number] Signed PATIENT: JOHNNY JOINER ACCT: [id number] UNIT: [id number] : 1970 LOC: ER ROOM / BED: / AGE / SEX: 54 / M ADM STATUS: REG ER SERVICE 1564 ORDERING PHYSICIAN: ALYSON MURRAY DO PROCEDURE(s): ABPLIV - CT AB PEL WITH IV CON ONLY REASON: rectal bleed ORDER NUMBER(s): [id number], ACCESSION NUMBER(s): [id number] Exam: CT CT AB PEL WITH IV CON ONLY History: rectal bleed Comparison Study: None available at time of dictation. Technique: Multidetector spiral CT of the abdomen and pelvis was performed from lung bases to pubic symphysis. Intravenous contrast was administered during this examination. Portal venous imaging was obtained. Axial, coronal and sagittal multiplanar reformats were performed by the technologist on a separate workstation. Radiation Dose : 1. Abdomen/Pelvis: CTDIvol 27 mGy, DLP 1500 mGy*cm. Findings: Lung Bases: No acute or significant lung base finding. Normal heart size. No pleural or pericardial effusion. Liver: The liver is normal in size. Several hypodensities measuring up to 2 cm. Normal hepatic vascular enhancement. Gallbladder and Biliary Tree: Gallbladder is surgically absent. Spleen: Unremarkable Pancreas: The pancreas is normal in appearance without focal lesions or abnormal enhancement. Adrenal Glands: Right adrenal 5 cm fatty mass with calcification of the right adrenal gland. Kidneys: Subcentimeter hypodensity left kidney. Mild bilateral perinephric fat stranding which is most likely physiologic. Bladder: Unremarkable Bowel: The stomach is grossly normal in appearance. Surgical changes of the sigmoid colon. Normal appendix is visualized in the right lower quadrant witho ut findings of appendicitis. Ascites: Absent Lymphadenopathy: No mesenteric, retroperitoneal or periportal lymphadenopathy. Abdominal Wall and Mesentery: Unremarkable. Vasculature: The visualized abdominal aorta is normal in size and caliber. Abdominal and pelvic vessels demonstrate normal enhancement. Pelvic Organs: Unremarkable Musculoskeletal: No aggressive focal bony lesions, acute fractures or dislocation. IMPRESSION: Large fatty mass arising from the right adrenal gland consistent with a myelolipoma. There is also calcification within the right adrenal gland suggestive of prior infection or hemorrhage. Given the large size of the lesion recommend further evaluation with nonemergent contrast-enhanced MRI. Ancillary findings as described above. ATED BY: MUSHTAQ GRANADOS DO DICTATED DATE/TIME: 12/02/24 2336 SIGNED BY: MUSHTAQ GRANADOS DO SIGNED DATE/TIME: 12/02/242335 CC: Time of 1ST Reevaluation: 00:10 (The case was discussed with the admitting team (HPI, physical exam, labs and diagnostic tests that were available at the time of disposition, ED course, treatment plan) in person. They agreed to admit the patient to their service and assume care of this patient from this point forward. MATTHIEU Breen. ) Patient Education/Counseling: Diagnosis, Treatment Family Education/Counseling: No Family Present Departure 1 Departure Time of Disposition: 23:50 Impression: Primary Impression: Rectal bleeding Additional Impression: History of pulmonary embolus (PE) Disposition: ADMITTED INPATIENT Admit to: Tele Condition: Guarded Additional Instructions: Below is a copy of your CT scan report to follow up on abnormal incidental findings. [place] [address] Ph: [phone] DIAGNOSTIC IMAGING Diagnostic Imaging Report : [id number] Signed PATIENT: JOHNNY JOINER ACCT: [id number] UNIT: [id number] : 1970 LOC: ER ROOM / BED: / AGE / SEX: 54 / M ADM STATUS: REG ER SERVICE 24 ORDERING PHYSICIAN: ALYSON MURRAY DO PROCEDURE(s): ABPLIV - CT AB PEL WITH IV CON ONLY REASON: rectal bleed ORDER NUMBER(s): [id number], ACCESSION NUMBER(s): [id number] Exam: CT CT AB PEL WITH IV CON ONLY History: rectal bleed Comparison Study: None available at time of dictation. Technique: Multidetector spiral CT of the abdomen and pelvis was performed from lung bases to pubic symphysis. Intravenous contrast was administered during this examination. Portal venous imaging was obtained. Axial, coronal and sagittal multiplanar reformats were performed by the technologist on a separate workstation. Radiation Dose : 1. Abdomen/Pelvis: CTDIvol 27 mGy, DLP 1500 mGy*cm. Findings: Lung Bases: No acute or significant lung base finding. Normal heart size. No pleural or pericardial effusion. Liver: The liver is normal in size. Several hypodensities measuring up to 2 cm. Normal hepatic vascular enhancement. Gallbladder and Biliary Tree: Gallbladder is surgically absent. Spleen: Unremarkable Pancreas: The pancreas is normal in appearance without focal lesions or abnormal enhancement. Adrenal Glands: Right adrenal 5 cm fatty mass with calcification of the right adrenal gland. Kidneys: Subcentimeter hypodensity left kidney. Mild bilateral perinephric fat stranding which is most likely physiologic. Bladder: Unremarkable Bowel: The stomach is grossly normal in appearance. Surgical changes of the sigmoid colon. Normal appendix is visualized in the right lower quadrant without findings of appendicitis. Ascites: Absent Lymphadenopathy: No mesenteric, retroperitoneal or periportal lymphadenopathy. Abdominal Wall and Mesentery: Unremarkable. Vasculature: The visualized abdominal aorta is normal in size and caliber. Abdominal and pelvic vessels demonstrate normal enhancement. Pelvic Organs: Unremarkable Musculoskeletal: No aggressive focal bony lesions, acute fractures or dislocation. IMPRESSION: Large fatty mass arising from the right adrenal gland consistent with a myelolipoma. There is also calcification within the right adrenal gland suggestive of prior infection or hemorrhage. Given the large size of the lesion recommend further evaluation with nonemergent contrast-enhanced MRI. Ancillary findings as described above. ATED BY: MUSHTAQ GRANADOS DO DICTATED DATE/TIME: 12/02/242335 SIGNED BY: MUSHTAQ GRANADOS DO SIGNED DATE/TIME: 12/02/242335 CC: Discharged With: Self I personally scribed for ALYSON MURRAY DO ([email or web address]) on 12/03/24 at 01:52. Electronically submitted by Henry Sarah ([email or web address]). ALYSON MURRAY DO Dec 02, 2024 22:34
[2024-12-02 23:01] LABS: Basophils # (auto) 0 10 ^3/uL (0-0.2); Basophils % (auto) 0.3 % (0.0-2.0); Eosinophils # (auto) 0 10 ^3/uL (0-0.8); Hematocrit 51.6 % (41.0-53.0); Lymphocytes # (auto) 1.4 10 ^3/uL (0.4-5.4); Lymphocytes % (auto) 11.3 % (10.0-50.0); Mean Corpuscular Hemoglobin 30.5 pg (28.0-32.0); Mean Corpuscular Hgb Conc. 32.9 g/dL (32.0-36.0); Mean Corpuscular Volume 92.8 fL (80.0-100.0); Monocytes # (auto) 0.6 10 ^3/uL (0-1.3); Monocytes % (auto) 4.8 % (0.0-12.0); Neutrophils # (auto) 10.2 10 ^3/uL (1.6-8.6); Neutrophils % (auto) 83.6 % (37.0-80.0); Platelet Count (auto) 211 10^3/uL (140-450); Red Blood Cells 5.56 10^6/uL (4.5-5.90); Red Cell Distribution Width 14.2 % (11.8-14.3); White Blood Cell 12.2 10^3/uL (4.4-10.8)
[2024-12-02] MEDS: IOHEXOL 300 MG/ML 100ML BOTTLE IJ ONE (23:02)
[2024-12-02] MEDS: SODIUM CHLORIDE 0.9% 500 ML IV ONE (23:06)
[2024-12-02] MEDS: PANTOPRAZOLE 40 MG/10 ML VIAL INJ IV ONE (23:06)
[2024-12-02 23:10] VITALS: PULSE 124; RESP 15; O2SAT 95
--- NOTE | 2024-12-02 23:38 | DVH ---
Exam: CT CT AB PEL WITH IV CON ONLY History: rectal bleed Comparison Study: None available at time of dictation. Technique: Multidetector spiral CT of the abdomen and pelvis was performed from lung bases to pubic s ymphysis. Intravenous contrast was administered during this examination. Portal venous imaging was obtained. Axial, coronal and sagittal multiplanar reformats were performed by the technologist on a separate workstation. Radiation Dose : 1. Abdomen/Pelvis: CTDIvol 27 mGy, DLP 1500 mGy*cm. Findings: Lung Bases: No acute or significant lung base finding. Normal heart size. No pleural or pericardial effusion. Liver: The liver is normal in size. Several hypodensities measuring up to 2 cm. Normal hepatic vascu lar enhancement. Gallbladder and Biliary Tree: Gallbladder is surgically absent. Spleen: Unremarkable Pancreas: The pancreas is normal in appearance without focal lesions or abnormal enhancement. Adrenal Glands: Right adrenal 5 cm fatty mass with calcification of the right adrenal gland. Kidneys: Subcentimeter hypodensity left kidney. Mild bilateral perinephric fat stranding which is mos t likely physiologic. Bladder: Unremarkable Bowel: The stomach is grossly normal in appearance. Surgical changes of the sigmoid colon. Normal ap pendix is visualized in the right lower quadrant without findings of appendicitis. Ascites: Absent Lymphadenopathy: No mesenteric, retroperitoneal or periportal lymphadenopathy. Abdominal Wall and Mesentery: Unremarkable. Vasculature: The visualized abdominal aorta is normal in size and caliber. Abdominal and pelvic vess els demonstrate normal enhancement. Pelvic Organs: Unremarkable Musculoskeletal: No aggressive focal bony lesions, acute fractures or dislocation. IMPRESSION: Large fatty mass arising from the right adrenal gland consistent with a myelolipoma. There is also ca lcification within the right adrenal gland suggestive of prior infection or hemorrhage. Given the lar ge size of the lesion recommend further evaluation with nonemergent contrast-enhanced MRI. Ancillary findings as described above.
[2024-12-02 23:39] LABS: Partial Thromboplastin Time 30.8 SEC (24.5-34.5)
[2024-12-03 00:53] LABS: INR 0.95 (0.9-1.15); Prothrombin Time 10.3 sec (9.3-11.8)
[2024-12-03 00:59] LABS: Alanine Aminotransferase 28 U/L (7-40); Alkaline Phosphatase 88 U/L (46-116); Anion Gap 14 (5-15); Aspartate Aminotransferase 16 U/L (13-40); Bilirubin, Total 0.4 mg/dL (0.2-1.0); Blood Urea Nitrogen 19 mg/dL (9-23); Carbon Dioxide 20 mmol/L (20-31); Potassium 4.2 mmol/L (3.5-5.1); Sodium 141 mmol/L (136-145)
[2024-12-03 01:13] LABS: Albumin 4.9 g/dL (3.2-4.8); Calcium 10.9 mg/dL (8.7-10.4); Chloride 107 mmol/L (98-107); Glucose 315 mg/dL (74-106); Total Protein 8.5 g/dL (5.7-8.2)
[2024-12-03] MEDS ORDERED: NITROGLYCERIN 0.4 MG SL TAB SL PRN (01:30)
[2024-12-03] MEDS ORDERED: ACETAMINOPHEN 325 MG TAB PO PRN (01:30)
[2024-12-03] MEDS ORDERED: HYDROcodone-ACET 5/325MG TAB PO PRN (01:30)
[2024-12-03] MEDS ORDERED: MORPHINE SULFATE INJ 2 MG/ml SYRG IV PRN (01:30)
[2024-12-03] MEDS ORDERED: DEXTROSE (50%) 50ML SYRG IV PRN (01:30)
--- NOTE | 2024-12-03 01:46 | DVHHP2 ---
MAL OSEGUERA CREAM BEATER 12/03/24 0146: History of Present Illness Reason for Visit: Bright red blood per rectum History of Present Illness 54 year old male medical history of CHF, COPD, hypertension PE s/p thrombectomy on Eliquis Presents with Complaints of bright red blood per rectum times one day. Patient endorses he has been on Eliquis since the beginning of October After being diagnosed with a Saddle pulmonary embolism. Patient also was taking Aspirin 81 mg daily. Patient has no complaints of abdominal pain, Or Rectal trauma. Denies fevers, chills, nausea, vomiting, diarrhea, , Chest pain, Shortness of breath. Cardiovascular: CHF, HTN Pulmonary: COPD, Pulmonary embolus Endocrine: Diabetes Smoke: No ALCOHOL: none Drugs: None Lives: with Family Review of Systems Constitutional: No: Fever, Chills, Sweats, Weakness, Malaise, Other Eyes: No: Pain, Vision change, Conjunctivae inflammation, Eyelid inflammation, Other, Redness ENT: No: Ear pain, Ear discharge, Nose pain, Nose discharge, Nose congestion, Mouth pain, Mouth swelling, Throat pain, Throat swelling, Other Respiratory: No: Cough, Dry, Shortness of breath, SOB with excertion, Wheezing, Hemoptysis, Pleuritic Pain, Sputum, Wheezing, Other Cardiovascular: No: Chest Pain, Palpitations, Orthopnea, Paroxysmal Noc. Dyspnea, Edema, Lt Headedness, Other Gastrointestinal: Hematochezia; No: Nausea, Vomiting, Abdominal Pain, Diarrhea, Constipation, Melena, Other Genitourinary: No Dysuria, No Frequency, No Incontinence, No Hematuria, No Retention, No Other Musculoskeletal: No: other, neck pain, shoulder pain, arm pain, back pain, hand pain, leg pain, foot pain Skin: No: Rash, Lesions, Jaundice, Bruising, Other Neurological: No: Weakness, Numbness, Incoordination, Change in speech, Confusion, Seizures, Other Allergies: Coded Allergies: Prednisone (Verified Allergy, Unknown, 10/18/24) Exam Vital Signs Vital Signs Date Time Temp Pulse Resp B/P (MAP) Pulse Ox O2 Delivery O2 Flow Rate FiO2 12/02/24 23:10 124 15 95 Room Air* 0 21 12/02/24 23:10 154/116 (129) 12/02/24 22:15 97.9 General Appearance: Alert, Oriented X3, Cooperative, No acute distress HEENT: Atraumatic, PERRLA Respiratory: Clear to auscultation, Normal air movement Cardiovascular: Regular rate, Normal S1, Normal S2 Abdominal: Normal bowel sounds, Soft Extremities: No clubbing, No cyanosis, No edema Skin: No rashes, No breakdown Neuro: Normal gait, Normal speech Psych/Mental Status: Mental status NL, Mood NL Labs/Xrays Labs Test 12/03/24 00:41 12/02/24 22:49 Range/Units White Blood Count 12.2 H 4.4-10.8 10^3/uL Red Blood Count 5.56 4.5-5.90 10^6/uL Hemoglobin 17.0 13.5-17.5 g/dL Hematocrit 51.6 41.0-53.0 % Mean Corpuscular Volume 92.8 80.0-100.0 fL Mean Corpuscular Hemoglobin 30.5 28.0-32.0 pg Mean Corpuscular Hemoglobin Concent 32.9 32.0-36.0 g/dL Red Cell Distribution Width 14.2 11.8-14.3 % Platelet Count 211 140-450 10^3/uL Mean Platelet Volume 9.7 6.9-10.8 fL Neutrophils (%) (Auto) 83.6 H 37.0-80.0 % Lymphocytes (%) (Auto) 11.3 10.0-50.0 % Monocytes (%) (Auto) 4.8 0.0-12.0 % Eosinophils (%) (Auto) 0.0 0.0-7.0 % Basophils (%) (Auto) 0.3 0.0-2.0 % Neutrophils # (Auto) 10.2 H 1.6-8.6 10 ^3/uL Lymphocytes # (Auto) 1.4 0.4-5.4 10 ^3/uL Monocytes # (Auto) 0.6 0-1.3 10 ^3/uL Eosinophils # (Auto) 0 0-0.8 10 ^3/uL Basophils # (Auto) 0 0-0.2 10 ^3/uL Nucleated Red Blood Cells 0.0 % Prothrombin Time 10.3 9.3-11.8 sec Prothrombin Time INR 0.95 0.9-1.15 Activated Partial Thromboplast Time 30.8 24.5-34.5 SEC Sodium Level 141 136-145 mmol/L Potassium Level 4.2 3.5-5.1 mmol/L Chloride Level 107 98-107 mmol/L Carbon Dioxide Level 20 20-31 mmol/L Anion Gap 14 5-15 Blood Urea Nitrogen 19 9-23 mg/dL Creatinine 1.19 0.700-1.30 mg/dL Glomerular Filtration Rate Calc 72 >90 mL/min BUN/Creatinine Ratio 16.0 10.0-20.0 Serum Glucose 315 H 74-106 mg/dL Calcium Level 10.9 H 8.7-10.4 mg/dL Total Bilirubin 0.4 0.2-1.0 mg/dL Aspartate Amino Transferase (AST) 16 13-40 U/L Alanine Aminotransferase (ALT) 28 7-40 U/L Alkaline Phosphatase 88 46-116 U/L Troponin I High Sensitivity 6 </=54 ng/L Total Protein 8.5 H 5.7-8.2 g/dL Albumin 4.9 H 3.2-4.8 g/dL Assessment/Plan Assessment/Plan Bright red blood per rectum Lactic acidosis HX saddle embolism status post thrombectomy on Eliquis DM Hx CHF Hx COPD Plan Admit telemetry Consult gastroenterology Clear liquid diet IVF Ns @ 100ml x 1 liter Hold Elquis for now Monitor CBC, BMP, lactic acid level in a.m. Continue home medication after medication reconciliation has been completed GI ppx protonix / DVT ppx scd Plan discussed with: Patient My Orders Orders - MAL OSEGUERA NP Procedure Category Date Status Time Admit ADMIT 12/03/24 Verified : Code Status CODE 12/03/24 Verified 01:29 Vital Signs [facility] 12/03/24 Verified 01:29 Review Orders With VIOLETA 12/03/24 Verified Adm. 01:29 Encourage Activity As VIOLETA 12/03/24 Verified Tolerate 01:29 Oxygen By Face Mask RT 12/03/24 Verified 01:29 Acetaminophen Tablet [facility]A 12/03/24 Verified (Tylenol Tablet) 01:30 Notify Of Changes [facility] 12/03/24 Verified From Base 01:29 Advance Directive [facility] 12/03/24 Verified 01:29 Basic Metabolic Panel LAB 12/03/24 Verified 05:00 Basic Metabolic Panel LAB 12/04/24 Verified 05:00 Basic Metabolic Panel LAB 12/05/24 Verified 05:00 Complete Blood Count LAB 12/03/24 Verified 05:00 Complete Blood Count LAB 12/04/24 Verified 05:00 Complete Blood Count LAB 12/05/24 Verified 05:00 Patient Condition ORDERS 12/03/24 Verified 01:29 Allergies [facility] 12/03/24 Verified 01:29 Hydrocodone-Acet [facility] 12/03/24 Verified 5/325mg Tab ([place] 01:30 Sequential [facility] 12/03/24 Verified Compression Device Nitroglycerin [facility] 12/03/24 Verified Sublingual (Ntrostat 01:30 Morphine Sulfate [facility] 12/03/24 Verified Injection 01:30 Stat Ekg For Chest [facility] 12/03/24 Verified Pain 01:29 Notify Md Of Changes [facility] 12/03/24 Verified From Base 01:29 Net Manager For [facility] 12/03/24 Verified 24 Hours 01:29 Emergency Dysrhythmia [facility] 12/03/24 Verified Protocol 01:29 Rhythm Strips Once [facility] 12/03/24 Verified Every Shift 01:29 Oxygen By Nasal RT 12/03/24 Verified Cannula 01:29 Glucose Blood [facility] 12/03/24 Verified (Accu-Chek Comfort 07:00 Mild Sliding Scale [facility] 12/03/24 Verified 07:00 Dextrose 50% Syringe PHA 12/03/24 Verified 01:30 *[facility] CONS 12/03/24 Verified 01:29 Clear Liq Diet DIET 12/03/24 Verified Breakfast NS [facility] 12/03/24 Verified 01:30 Pantoprazole PHA 12/03/24 Verified (Protonix) 10:00 Lactic Acid W/ Reflex LAB 12/03/24 Verified Order 04:00 Lactic Acid W/ Reflex LAB 12/03/24 Verified Order 10:00 Date of Service: Dec 03, 2024 Billing Provider: DHAVAL MARQUEZ MD Common Visit Codes: NOT BILLABLE DHAVAL MARQUEZ MD 12/03/24 1619: Review of Systems Allergies: Coded Allergies: Prednisone (Verified Allergy, Unknown, 10/18/24) Additional Comments Additional Comments Additional Comments Patient's chart is reviewed and discussed with the nurse practitioner. Patient is seen and evaluated by nurse practitioner admitted this morning. I agree with the nurse practitioner's evaluation, documentation, assessment and care plan as outlined. Also discussed with the child welfare consultant GI doctor Rogelio. Apparently patient had colon resection surgery within last 90 days at another hospital. Patient had a PE for which he has been taking Eliquis. 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 We will monitor hemoglobin and if it remains stable consider resuming Eliquis for GI. MAL OSEGUERA NP Dec 03, 2024 01:46 DHAVAL MARQUEZ MD Dec 03, 2024 16:19
[2024-12-03 05:52] VITALS: PULSE 103; RESP 19; O2SAT 94
[2024-12-03] MEDS: SODIUM CHLORIDE 0.9% 1,000 ML IV ONE (05:54)
[2024-12-03] MEDS: InsuLIN REG 1unit/0.01ml Soln (100units/ml) SC SCH (07:00)
[2024-12-03] MEDS: ACCU-CHEK COMFORT CURVE STRIP VI SCH (07:08)
[2024-12-03 07:45] LABS: Basophils # (auto) 0 10 ^3/uL (0-0.2); Basophils % (auto) 0.2 % (0.0-2.0); Eosinophils # (auto) 0 10 ^3/uL (0-0.8); Hemoglobin 16.4 g/dL (13.5-17.5); Lymphocytes # (auto) 1.9 10 ^3/uL (0.4-5.4); Lymphocytes % (auto) 18.1 % (10.0-50.0); Mean Corpuscular Hemoglobin 30.7 pg (28.0-32.0); Mean Corpuscular Hgb Conc. 33.5 g/dL (32.0-36.0); Mean Corpuscular Volume 91.5 fL (80.0-100.0); Monocytes # (auto) 0.9 10 ^3/uL (0-1.3); Monocytes % (auto) 8.9 % (0.0-12.0); Neutrophils # (auto) 7.8 10 ^3/uL (1.6-8.6); Neutrophils % (auto) 72.8 % (37.0-80.0); Nucleated Red Blood Cells % 0.1 %; Platelet Count (auto) 187 10^3/uL (140-450); Red Blood Cells 5.35 10^6/uL (4.5-5.90); White Blood Cell 10.6 10^3/uL (4.4-10.8)
[2024-12-03 08:01] LABS: Anion Gap 8 (5-15); Carbon Dioxide 27 mmol/L (20-31); Potassium 3.9 mmol/L (3.5-5.1); Sodium 142 mmol/L (136-145)
[2024-12-03 08:05] LABS: Calcium 10.4 mg/dL (8.7-10.4); Chloride 107 mmol/L (98-107)
[2024-12-03 08:07] LABS: BUN/Creatinine Ratio 13.8 (10.0-20.0); Blood Urea Nitrogen 15 mg/dL (9-23)
[2024-12-03 08:11] LABS: Glucose 138 mg/dL (74-106)
[2024-12-03 09:03] LABS: Urine Bacteria None Seen /hpf (None Seen)
[2024-12-03 09:26] LABS: Urine Blood Negative /uL (Negative); Urine Clarity Clear (Clear); Urine Color Light-Yellow (Yellow); Urine Protein, UAD 1+ (Negative); Urine Squamous Epithelial Cell None Seen /hpf (<5); Urine Urobilinogen Normal (Negative); Urine WBC <1 /hpf (0 - 3)
[2024-12-03] MEDS: PANTOPRAZOLE 40 MG/10 ML VIAL INJ IV SCH (10:17)
[2024-12-03] MEDS ORDERED: IPRATROPIUM ALBUTEROL NEB SCH (18:00)
[2024-12-03 18:05] VITALS: PULSE 72; RESP 18; O2SAT 94
[2024-12-03] MEDS: IPRATROPIUM BROM 0.5 MG/2.5ML INH SOL NEB SCH (18:05)
[2024-12-03 18:13] VITALS: PULSE 75; RESP 18; O2SAT 99
[2024-12-03] MEDS: ALBUTEROL MEDNEB 2.5 mg/3ml NEB NEB SCH (18:17)
[2024-12-03 19:00] VITALS: BP 142/92; PULSE 72; RESP 18; TEMP 98; O2SAT 94
[2024-12-03 21:33] VITALS: BP 148/96; PULSE 78; RESP 17; TEMP 98.6; O2SAT 94
[2024-12-03] MEDS ORDERED: PATIENTS OWN MEDICATION (Carvedilol 1 TAB) PO SCH (22:00)
[2024-12-03] MEDS: SACUBITRIL VALSARTAN PO SCH (22:30)
[2024-12-03] MEDS: CARVEDILOL 3.125 MG TAB PO SCH (22:36)
[2024-12-03] MEDS: MYCOPHENOLATE 500 MG TAB PO SCH (22:38)
[2024-12-03 22:54] VITALS: BP 148/96; PULSE 78; RESP 17; TEMP 98.6; O2SAT 94
[2024-12-04] VITALS (14 sets, daily range): BP systolic 119–129; BP diastolic 80–87; PULSE 58–73; RESP 16–21; TEMP 97.8–98.6; O2SAT 86–100
[2024-12-04] MEDS: LORazepam 2MG/ML-1ML VIAL IV ONE (01:30)
[2024-12-04 07:09] LABS: Basophils # (auto) 0 10 ^3/uL (0-0.2); Basophils % (auto) 0.5 % (0.0-2.0); Eosinophils # (auto) 0 10 ^3/uL (0-0.8); Eosinophils % (auto) 0.4 % (0.0-7.0); Hematocrit 47.3 % (41.0-53.0); Hemoglobin 15.9 g/dL (13.5-17.5); Lymphocytes # (auto) 2.3 10 ^3/uL (0.4-5.4); Lymphocytes % (auto) 37.4 % (10.0-50.0); Mean Corpuscular Hemoglobin 30.7 pg (28.0-32.0); Mean Corpuscular Hgb Conc. 33.7 g/dL (32.0-36.0); Mean Corpuscular Volume 91.2 fL (80.0-100.0); Monocytes # (auto) 0.7 10 ^3/uL (0-1.3); Monocytes % (auto) 11.5 % (0.0-12.0); Neutrophils % (auto) 50.2 % (37.0-80.0); Nucleated Red Blood Cells % 0.2 %; Platelet Count (auto) 179 10^3/uL (140-450); Red Blood Cells 5.19 10^6/uL (4.5-5.90); Red Cell Distribution Width 14.3 % (11.8-14.3)
[2024-12-04 07:22] LABS: Anion Gap 7 (5-15); Carbon Dioxide 29 mmol/L (20-31); Chloride 104 mmol/L (98-107); Potassium 3.6 mmol/L (3.5-5.1); Sodium 140 mmol/L (136-145)
[2024-12-04 07:24] LABS: Calcium 9.8 mg/dL (8.7-10.4)
[2024-12-04 07:29] LABS: BUN/Creatinine Ratio 12.6 (10.0-20.0); Blood Urea Nitrogen 14 mg/dL (9-23)
[2024-12-04 07:31] LABS: Glucose 107 mg/dL (74-106)
[2024-12-04 10:40] LABS: Hepatitis B Surface Antigen Negative (Negative)
[2024-12-04] MEDS: MONTELUKAST SODIUM 10 MG TAB PO SCH (10:45)
[2024-12-04 11:58] LABS: Hepatitis C Antibody Negative (Negative)
--- NOTE | 2024-12-04 14:18 | DVHDS2 ---
Discharge Summary Date of Admission Dec 03, 2024 at 01:29 Date of Discharge: Dec 04, 2024 Admitting Diagnosis Bleeding per rectum Labs/Diagnostic Data: Laboratory Results Test 12/04/24 11:01 12/04/24 05:53 12/03/24 10:00 12/03/24 08:53 POC Glucose 154 mg/dl (70-106) White Blood Count 6.0 10^3/uL (4.4-10.8) Red Blood Count 5.19 10^6/uL (4.5-5.90) Hemoglobin 15.9 g/dL (13.5-17.5) Hematocrit 47.3 % (41.0-53.0) Mean Corpuscular Volume 91.2 fL (80.0-100.0) Mean Corpuscular Hemoglobin 30.7 pg (28.0-32.0) Mean Corpuscular Hemoglobin Concent 33.7 g/dL (32.0-36.0) Red Cell Distribution Width 14.3 % (11.8-14.3) Platelet Count 179 10^3/uL (140-450) Mean Platelet Volume 9.9 fL (6.9-10.8) Neutrophils (%) (Auto) 50.2 % (37.0-80.0) Lymphocytes (%) (Auto) 37.4 % (10.0-50.0) Monocytes (%) (Auto) 11.5 % (0.0-12.0) Eosinophils (%) (Auto) 0.4 % (0.0-7.0) Basophils (%) (Auto) 0.5 % (0.0-2.0) Neutrophils # (Auto) 3.0 10 ^3/uL (1.6-8.6) Lymphocytes # (Auto) 2.3 10 ^3/uL (0.4-5.4) Monocytes # (Auto) 0.7 10 ^3/uL (0-1.3) Eosinophils # (Auto) 0 10 ^3/uL (0-0.8) Basophils # (Auto) 0 10 ^3/uL (0-0.2) Nucleated Red Blood Cells 0.2 % Sodium Level 140 mmol/L (136-145) Potassium Level 3.6 mmol/L (3.5-5.1) Chloride Level 104 mmol/L (98-107) Carbon Dioxide Level 29 mmol/L (20-31) Anion Gap 7 (5-15) Blood Urea Nitrogen 14 mg/dL (9-23) Creatinine 1.11 mg/dL (0.700-1.30) Glomerular Filtration Rate Calc 78 mL/min (>90) BUN/Creatinine Ratio 12.6 (10.0-20.0) Serum Glucose 107 mg/dL (74-106) Calcium Level 9.8 mg/dL (8.7-10.4) Hepatitis B Surface Antigen Negative (Negative) Hepatitis C Antibody Negative (Negative) Lactic Acid Level 1.2 mmol/L (0.4-2.0) Urine Color Light-yellow (Yellow) Urine Clarity Clear (Clear) Urine pH 6.0 (5.0-9.0) Urine Specific [place] 1.030 (1.001-1.035) Urine Protein 1+ (Negative) Urine Ketones Negative (Negative) Urine Blood Negative /uL (Negative) Urine Nitrite Negative (Negative) Urine Bilirubin Negative (Negative) Urine Urobilinogen Normal mg/dL (Negative) Urine Leukocyte Esterase Negative /uL (Negative) Urine RBC 1 /hpf (0 - 3) Urine WBC <1 /hpf (0 - 3) Urine Squamous Epithelial Cells None seen /hpf (<5) Urine Bacteria None seen /hpf (None Seen) Urine Glucose Normal mg/dL (Normal) Test 12/02/24 22:49 Prothrombin Time 10.3 sec (9.3-11.8) Prothrombin Time INR 0.95 (0.9-1.15) Activated Partial Thromboplast Time 30.8 SEC (24.5-34.5) Total Bilirubin 0.4 mg/dL (0.2-1.0) Aspartate Amino Transferase (AST) 16 U/L (13-40) Alanine Aminotransferase (ALT) 28 U/L (7-40) Alkaline Phosphatase 88 U/L (46-116) Troponin I High Sensitivity 6 ng/L (</=54) Total Protein 8.5 g/dL (5.7-8.2) Albumin 4.9 g/dL (3.2-4.8) Other Laboratory Tests 12/04/24 05:53 Brief Hx & Hospital Course: 54 year old male medical history of CHF, COPD, hypertension PE s/p thrombectomy on Eliquis Presents with Complaints of bright red blood per rectum times one day. Patient endorses he has been on Eliquis since the beginning of October After being diagnosed with a Saddle pulmonary embolism. Patient also was taking Aspirin 81 mg daily. Patient has no complaints of abdominal pain, Or Rectal trauma. Denies fevers, chills, nausea, vomiting, diarrhea, , Chest pain, Shortness of breath. He is admitted and further observed. His hemoglobin remained relatively stable. Patient did not have any further bleeding while in the hospital after having bowel movements. Patient Eliquis has been discontinued for 48 hours. I have talked to healthcare advisory services manager on-call Dr. Marcum and given the patient had a recent colon surgery with colectomy and colonoscopy he did not feel patient needs a repeat colonoscopy. It is also felt that given his recent pulmonary embolism that he needs to be on anticoagulation and at present the risks of off of anticoagulation outweigh the risks of bleeding. Given the patient is not having any further bleeding I have advised him to resume his Eliquis. Otherwise patient is advised if he has any recurrent bleeding to hold the Eliquis for 24- 48 hours and seek help either visiting ER or talking to the primary care physician. Patient verbalized understanding of this and given his clinically stable feeling better not having any further GI bleeding he has been discharged home in stable condition. Patient verbalized understanding his hospital diagnosis, discharge medications and discharge instructions. Condition at Discharge: Stable Final Diagnosis/Problems List Bright red blood per rectum minimal resolved now. History of pulmonary embolism to resume Eliquis Discharge Disposition: Home Discharge Instruct/Medications Diet: Consistent carbohydrate, Cardiac 2g Na,low cholest Activity: No Restrictions, As Tolerated Follow Up/Referral: With the gastro group Dr. Trudy [facility] follow up for rectal bleeding 1 week Medications: Resume home medications per discharge med list Continued Medications: Amlodipine Besylate (Amlodipine Besylate) 10 Mg Tab 1 TAB PO DAILY for 90 Days, #90 Apixaban Base (Eliquis) 5 Mg Tab 1 TAB PO BID for 30 Days, #60 Carvedilol (Carvedilol) 6.25 Mg Tab 1 TAB PO BID for 90 Days, #180 Fluticasone-Salmeterol (Wixela Inhub 500-50 Mcg/Dose) 1 Aer Aer 1 PUFF IN BID for 30 Days, #60 Glipizide (Glipizide) 10 Mg Tab 2 TAB PO BID for 90 Days, #360 Ipratropium-Albuterol (Ipratropium Butternut/Albut) 1 Blanca Blanca 3 ML NEB Q6HR for 30 Days, #360 Metformin Hydrochloride (Metformin Hcl) 500 Mg Tab 1 TAB PO BID for 90 Days, #180 Montelukast Sodium (Montelukast Sodium) 10 Mg Tab 1 TAB PO DAILY for 90 Days, #90 Mycophenolate Mofetil (Mycophenolate Mofetil) 500 Mg Tab 1 TAB PO BID for 90 Days, #180 Sacubitril-Valsartan (Entresto 97-103 mg) 1 Tab Tab 1 TAB PO BID for 90 Days, #180 Semaglutide (Rybelsus) 7 Mg Tab 1 TAB PO DAILY for 30 Days, #30 Sitagliptin Phosphate (Januvia) 100 Mg Tab 1 TAB PO DAILY for 90 Days, #90 Discontinued Medications: Azithromycin (Azithromycin) 250 Mg Tab 250 MG PO UD for 5 Days, #6 Methylprednisolone (Methylprednisolone Dose P) 4 Mg Tab 4 MG PO UD for 6 Days, #21 Discharge Statement: "Patient was advised to return to the ER or call 911 if any headaches, dizziness, shortness of breath, chest pain, abdominal pain, bleeding, fevers, or worsening of medical condition. Patient was counseled about treatment plan, medications, possible side effects, patientverbalized understanding. All questions were answered to the best of my ability. This discharge took greater then 30 minutes in planning, reviewing documentation, counseling the patient, and discussing with other team members." ASSESSMENT ASSESSMENT Assessment Bright red blood per rectum minimal resolved now. History of pulmonary embolism to resume DHAVAL Cummins MD Dec 04, 2024 14:18
== END 2024-12-04 16:06 | disposition home or self-care (01) | DRG 813 ==
LOC: ER 22:09 → TELE 12-03 01:29 → TELE-WESTW 12-03 21:10
PROVIDERS: ADMIT Nurse Practitioner Family; ATTEND Nurse Practitioner Family
DX: D68.32 Hemorrhagic disorder due to extrinsic circulating anticoagulants (principal); K62.5 Hemorrhage of anus and rectum; E87.20 Acidosis, unspecified; E11.9 Type 2 diabetes mellitus without complications; I11.0 Hypertensive heart disease with heart failure; I50.9 Heart failure, unspecified; J44.9 Chronic obstructive pulmonary disease, unspecified; Z79.82 Long term (current) use of aspirin; Z86.711 Personal history of pulmonary embolism; Z79.01 Long term (current) use of anticoagulants; Z88.8 Allergy status to other drugs, medicaments and biological substances; Y92.89 Other specified places as the place of occurrence of the external cause; T45.515A Adverse effect of anticoagulants, initial encounter
CPT/HCPCS: 36415; 74177; 80048; 80053; 81001; 82962; 83605; 84484; 85025; 85610; 85730; 86803; 86850; 86900; 86901; 87340; 94640; 96374; G0378; J1815; J2470; J7517